=== PATIENT | female | born 1955 | race African-American/Black ===

== ENCOUNTER 2023-09-04 04:32 | Emergency (ER) | payer MEDICARE, MEDICAID, SELFPAY ==
[2023-09-04] VITALS (22 sets, daily range): BP systolic 97–143; BP diastolic 70–124; PULSE 96–109; RESP 12–22; TEMP 36.8; O2SAT 99; BMI 26.0
--- NOTE | 2023-09-04 05:01 | ED_ITS ---
HPI - Nausea/Vomiting/Diarrhea General Chief complaint: Nausea/Vomiting/Diarrhea Stated complaint: CHEST PAIN Time Seen by Provider: 09/04/23 04:48 Source: patient Mode of arrival: ambulance History of Present Illness HPI Narrative: History of renal failure. peritoneal dialysis hs at home. Ill for the past week with recurrent vomiting and diarrhea. States diarrhea was dark/black at first and now has been red. She also has been vomiting for the past week. Tonight she describes recurrent sharp pain at her left breast. Transient pain that would come and go. She did complete her peritoneal dialysis last night. She also describes shooting pain down her arms. states this is related to nerve damage and has been going on for years Related Data Home Medications Medication Instructions Recorded Confirmed cephalexin 500 mg capsule mg 09/04/23 cholecalciferol (vitamin D3) 50 09/04/23 mcg (2,000 unit) capsule (Vitamin D3) docusate sodium 100 mg capsule mg PO 09/04/23 furosemide 80 mg tablet mg 09/04/23 lisinopril 20 mg tablet mg 09/04/23 metoprolol tartrate 50 mg tablet mg 09/04/23 midodrine 5 mg tablet mg 09/04/23 oxycodone-acetaminophen 5 mg-325 tab 09/04/23 mg tablet pantoprazole 40 mg tablet,delayed mg PO 09/04/23 release potassium chloride 10 mEq meq PO 09/04/23 tablet,extended release potassium chloride 20 mEq meq PO 09/04/23 tablet,extended release(part/cryst) sertraline 50 mg tablet mg 09/04/23 sevelamer carbonate 800 mg tablet mg 09/04/23 sodium bicarbonate 650 mg tablet mg 09/04/23 vitamin B complex-vitamin C-folic tab 09/04/23 acid 0.8 mg tablet (Nephro-Gregory) Allergies Allergy/AdvReac Type Severity Reaction Status Date / Time ciprofloxacin [From Cipro] Allergy Verified 09/04/23 04:40 sulfamethoxazole Allergy Verified 09/04/23 04:40 [From Bactrim] trimethoprim [From Bactrim] Allergy Verified 09/04/23 04:40 Review of Systems ROS Status of ROS 10 or more systems reviewed and unremarkable except as noted in history and below [facility] Medical History (Updated 09/04/23 @ 06:54 by Tania Grace) Metabolic syndrome ?E88.810 - Metabolic syndrome (ICD-10) Rectal bleeding ?K62.5 - Hemorrhage of anus and rectum (ICD-10) Social History Smoking status: Current every day smoker Exam Constitutional Vital Signs, click to edit/add: Last Vital Signs Temp 98.2 F 09/04/23 04:34 Pulse 98 H 09/04/23 06:30 Resp 15 09/04/23 06:30 BP 123/87 09/04/23 06:30 Pulse Ox 99 09/04/23 04:34 O2 Del Method Room Air 09/04/23 04:34 Common normals: no apparent distress, average body habitus, oriented x3, no limitations, healthy appearing and alert Eye Common normals: EOMs intact bilaterally and conjunctivae normal Respiratory Common normals: normal respiratory effort, no retractions and no use of accessor y muscles Cardio Common normals: S1 normal heart sound and S2 normal heart sound Rate: tachycardic GI Common normals: Normal to inspection, nondistended, normoactive bowel sounds present, soft to palpation and non-tender Other: rectal sample liquid brown Extremity Common normals: normal to inspection and full ROM Neuro Common normals: oriented x3, CN's II-XII intact bilaterally, moves all extremities and no focal motor deficits Psych Appearance: grossly normal Course Vital Signs Vital signs: Vital Signs Temperature 98.2 F 09/04/23 04:34 Pulse Rate 107 H 09/04/23 04:34 Respiratory Rate 22 09/04/23 04:34 Blood Pressure 104/78 09/04/23 04:34 Pulse Oximetry 99 09/04/23 04:34 Oxygen Delivery Method Room Air 09/04/23 04:34 Temperature 98.2 F 09/04/23 04:34 Pulse Rate 98 H 09/04/23 06:30 Respiratory Rate 15 09/04/23 06:30 Blood Pressure 123/87 09/04/23 06:30 Pulse Oximetry 99 09/04/23 04:34 Oxygen Delivery Method Room Air 09/04/23 04:34 MDM - Nausea/Vomiting/Diarrhea MDM Narrative Medical decision making narrative: peritoneal dialysis patient. States she had a normal colonoscopy this past summer. Complains of recurrent vomiting this past week as well as rectal bleeding. States rectal bleeding was dark brown at first and then turned red blood in color. States she did contact GI at [facility] but they are not able to get her in for an appointment until october. Developed recurrent sharp transient left chest pain last PM and decided to come in. No fever. EKG sinus tach with nonspecific T changes. Troponin neg. Hgb 7.4. last Hgb from records at [facility] 11.2 06/30/23. cxray and abdominal films unremarkable. rectal liquid brown heme positive. [facility] contacted and they do not have beds at this time and are boarding people in the ER. Similarly [facility] does not have bed. [facility] in [place] contacted and Im waiting for call back from the hospitalist service. Did discuss with [facility] at [facility] and patient is accepted in transfer Lab Data Labs: Lab Results 09/04/23 09/04/23 Range/Units 04:45 06:00 WBC 12.8 H (4.0-11.0) 10^3/uL RBC 2.18 L (4.20-5.40) 10^6/uL Hgb 7.4 L (12.0-16.0) g/dL Hct 21.8 L* (36.0-48.0) % MCV 100.0 H (81.0-99.0) fL MCH 33.9 (26.7-34.0) pg MCHC 33.9 (29.9-35.2) g/dL RDW 16.4 H (11.0-15.0) % Plt Count 323 (150-450) 10^3/uL MPV 9.8 (9.5-13.5) fL Neut % (Auto) 68.2 (43.0-75.0) % Lymph % (Auto) 21.8 (20.5-60.0) % Parke % (Auto) 6.3 (1.7-12.0) % Eos % (Auto) 2.7 (0.9-7.0) % Baso % (Auto) 0.5 (0.2-2.0) % Neut # (Auto) 8.7 H (1.4-6.5) 10^3/uL Lymph # (Auto) 2.8 (1.2-3.8) 10^3/uL Parke # (Auto) 0.8 (0.3-0.8) 10^3/uL Eos # (Auto) 0.4 (0.0-0.7) 10^3/uL Baso # (Auto) 0.1 (0.0-0.1) 10^3/uL Abs Immat Gran (auto) 0.06 H (0.00-0.03) 10^3/uL Imm/Tot Granulo (auto) 0.5 (0.0-0.5) % Sodium 139 (136-145) mmol/L Potassium 4.1 (3.5-5.1) mmol/L Chloride 103 (98-107) mmol/L Carbon Dioxide 27.4 (21.0-32.0) mmol/L Anion Gap 12.7 BUN 57.0 H (7.0-18.0) mg/dL Creatinine 9.35 H* (0.55-1.02) mg/dL Est GFR ( Amer) 5 L (>=60) Est GFR (Non-Af Amer) 4 L (>=60) BUN/Creatinine Ratio 6.1 Glucose 85 (74-106) mg/dL Calcium 8.7 (8.5-10.1) mg/dL Total Bilirubin 0.2 (0.2-1.0) mg/dL AST 25 (15-37) U/L ALT 35 (14-59) U/L Alkaline Phosphatase 123 H (46-116) U/L Troponin I High Sens 25.6 (4.0-51.3) pg/mL Total Protein 6.6 (6.4-8.2) g/dL Albumin 2.4 L (3.4-5.0) g/dL Globulin 4.2 g/dL Albumin/Globulin Ratio 0.6 Stool Occult Blood Positive A Discharge Plan Discharge Chief Complaint: Nausea/Vomiting/Diarrhea Clinical Impression: Anemia, Rectal bleeding, Renal failure, chronic, Nausea & vomiting Patient Disposition: [facility] Discharge Location: [facility]
--- NOTE | 2023-09-04 05:03 | PC.NURSE ---
patient was giving herself ordered nightly dialysis treatment when she started to experiencing intermittant nonradiating pains under left breast. states she had numbness in bilateral upper extremities. patient has been having n/v/d multiple times throughout the day for one week. had labs last on 08/30. old fistula not being used in left arm. patient denies any fever or flu like symptoms. states she has feelings similar to this every now and then. chest pain is currently resolved. squad attempted iv inroute with no luck.
--- NOTE | 2023-09-04 05:06 | ECG_ITS ---
The [facility] Test Date: 2023-09-04 Pat Name: TATI RAMIREZ Department: Room: - Gender: Female Traveling Auditor: : 1955 Requested By: PARAG DON Order Number: [id number] Reading MD: HINA BRAXTON Measurements Intervals [place] Rate: 102 P: 35 VA: 134 QRS: 21 QRSD: 92 T: 6 QT: 374 QTc: 432 Interpretive Statements 1120 Sinus tachycardia 4068 Nonspecific Twave abnormality 9140 abnormal rhythm ECG No previous ECG available for comparison Electronically Signed On 09-04-2023 7:08:08 EDT by HINA BRAXTON
--- NOTE | 2023-09-04 05:07 | XR_ITS ---
The [address] [address] Patient Name: TATI RAMIREZ MRN: [id number] date: 1955 Sex: F Assigned Patient Location: ER Current Patient Location: ED.MAIN Accession/Order Number: [id number] Exam Date: 09/04/2023 05:30 Report Date: 09/04/2023 06:31 At the request of: ANKIT LANE Procedure: XR acute abdomen series EXAMINATION: XR acute abdomen series HISTORY: vomiting , nausea, diarrhea for one week COMPARISON: XR chest 08/17/2016 FINDINGS: LUNGS: No infiltrate, pneumothorax, or pleural effusion. MEDIASTINUM: No abnormal widening. BOWEL GAS PATTERN: Air and stool throughout the colon without abnormal dilation or obstruction. Catheter projecting over left lower quadrant of uncertain etiology. FREE AIR: None. CALCIFICATIONS: None significant. BONES: No fracture or visible bone lesion. OTHER: Negative. XR/XR acute abdomen series IMPRESSION: 1. No acute cardiopulmonary process. 2. Normal bowel gas pattern. Electronically authenticated by: CATHERINE FLORES Date: 09/04/2023 06:31
[2023-09-04 05:17] LABS: Basophils Absolute Auto 0.1 10^3/uL (0.0-0.1); Basophils Percent Auto 0.5 % (0.2-2.0); Eosinophils Absolute Auto 0.4 10^3/uL (0.0-0.7); Eosinophils Percent Auto 2.7 % (0.9-7.0); Hemoglobin 7.4 g/dL (12.0-16.0); Immature Granulocytes Abs Auto 0.06 10^3/uL (0.00-0.03); Immature Granulocytes Pct Auto 0.5 % (0.0-0.5); Lymphocytes Absolute Auto 2.8 10^3/uL (1.2-3.8); Lymphocytes Percent Auto 21.8 % (20.5-60.0); Mean Corpuscular HGB Conc 33.9 g/dL (29.9-35.2); Mean Corpuscular Hemoglobin 33.9 pg (26.7-34.0); Mean Platelet Volume 9.8 fL (9.5-13.5); Monocytes Absolute Auto 0.8 10^3/uL (0.3-0.8); Monocytes Percent Auto 6.3 % (1.7-12.0); Neutrophils Absolute Auto 8.7 10^3/uL (1.4-6.5); Neutrophils Percent Auto 68.2 % (43.0-75.0); Platelet Count 323 10^3/uL (150-450); Red Blood Count 2.18 10^6/uL (4.20-5.40); Red Cell Distribution Width 16.4 % (11.0-15.0); White Blood Count 12.8 10^3/uL (4.0-11.0)
[2023-09-04 05:23] LABS: Hematocrit 21.8 % (36.0-48.0)
[2023-09-04] MEDS: ONDANSETRON PF 4 MG/2 ML VIAL IV (05:28)
[2023-09-04] MEDS: 0.9 % SODIUM CHLORIDE 1,000 ML 100 ML IV (05:29)
[2023-09-04 05:40] LABS: Alanine Aminotransferase 35 U/L (14-59); Albumin Globulin Ratio 0.6; Albumin Level 2.4 g/dL (3.4-5.0); Alkaline Phosphatase 123 U/L (46-116); Anion Gap 12.7; Aspartate Amino Transferase 25 U/L (15-37); BUN Creatinine Ratio 6.1; Bilirubin Total 0.2 mg/dL (0.2-1.0); Calcium 8.7 mg/dL (8.5-10.1); Carbon Dioxide 27.4 mmol/L (21.0-32.0); Chloride 103 mmol/L (98-107); Estimated GFR (African America 5 (>=60); Estimated GFR (Non-African Ame 4 (>=60); Globulin 4.2 g/dL; Glucose 85 mg/dL (74-106); Potassium 4.1 mmol/L (3.5-5.1); Sodium 139 mmol/L (136-145); Total Protein 6.6 g/dL (6.4-8.2); Troponin I High Sensitivity 25.6 pg/mL (4.0-51.3)
[2023-09-04 06:16] LABS: Occult Blood Positive
== END 2023-09-04 09:28 | disposition short-term general hospital (02) ==
PROVIDERS: Emergency Provider Internal Medicine; PCP Family Medicine
DX: K62.5 Hemorrhage of anus and rectum (principal); R11.2 Nausea with vomiting, unspecified; D64.9 Anemia, unspecified; N18.6 End stage renal disease; Z99.2 Dependence on renal dialysis; E88.810 Metabolic syndrome; Z79.899 Other long term (current) drug therapy; F17.210 Nicotine dependence, cigarettes, uncomplicated
CPT/HCPCS: 36415; 74022; 80053; 84484; 85025; 93005; 96361; 96374; 99285; G0328

== ENCOUNTER 2023-09-22 13:11 | Emergency (ER) | payer MEDICARE, MEDICAID, SELFPAY ==
[2023-09-22] VITALS (31 sets, daily range): BP systolic 98–127; BP diastolic 62–95; PULSE 62–78; RESP 15–41; TEMP 36.8; O2SAT 99; BMI 23.8
--- NOTE | 2023-09-22 13:36 | XR_ITS ---
The [address] [address] Patient Name: TATI RAMIREZ MRN: [id number] date: 1955 Sex: F Assigned Patient Location: ER Current Patient Location: ER Accession/Order Number: [id number] Exam Date: 09/22/2023 14:42 Report Date: 09/22/2023 15:15 At the request of: RUTH CHUN Procedure: XR chest 1V EXAMINATION: XR chest 1V, , 09/22/2023 2:42 PM EST INDICATION: abdominal pain HISTORY: Ordering Provider Reason for Exam: abdominal pain Technologist Note: Additional: COMPARISON: Chest x-ray dated 08/17/2016. . TECHNIQUE: Chest x-ray: One view. FINDINGS: No pneumothorax, pleural effusion or focal airspace consolidation. Heart is normal in size. Bony thorax is unremarkable. XR/XR chest 1V IMPRESSION: No acute cardiopulmonary process. Electronically authenticated by: MELANIE MEJÍA Date: 09/22/2023 15:15
--- NOTE | 2023-09-22 13:36 | CT_ITS ---
The [address] [address] Patient Name: TATI RAMIREZ MRN: [id number] date: 1955 Sex: F Assigned Patient Location: ER Current Patient Location: ER Accession/Order Number: [id number] Exam Date: 09/22/2023 14:42 Report Date: 09/22/2023 15:21 At the request of: RUTH CHUN Procedure: CT abdomen pelvis wo con CT abdomen pelvis wo con, 09/22/2023 2:42 PM EST INDICATION: Abdominal pain and vomiting COMPARISON: Dictation CT of the abdomen and pelvis 10/29/2008. The images are not currently available for direct comparison. TECHNIQUE: Axial images of the abdomen and pelvis were obtained without IV contrast. Multiplanar reformatted images were generated and reviewed as needed. Dose reduction techniques were achieved by using automated exposure control and/or adjustment of mA and/or kV according to patient size and/or use of iterative reconstruction technique. FINDINGS: No consolidation or effusion. Cholecystectomy. Liver, pancreas, spleen and adrenals are unremarkable on a noncontrast scan. Right renal atrophy. Nonobstructing right renal calculi. Bilateral cortical renal cysts and subcentimeter cortical hypodensities within the left kidney, too small to characterize. No ureteral or urinary bladder calculi. No aortic aneurysm. No bowel obstruction or acute focal inflammation. Heterogeneous debris within the gastric lumen likely ingested by patient. Left lower quadrant percutaneous catheter with tip in the left upper abdomen. Large volume of ascites. No pneumatosis or pneumoperitoneum. Fat-containing supraumbilical hernia with trace fluid in the hernia sac. No mesenteric or retroperitoneal lymphadenopathy. No acute fracture or dislocation. CT/CT abdomen pelvis wo con IMPRESSION: 1. Large volume of ascites. No bowel obstruction, pneumatosis or pneumoperitoneum. 2. Nonobstructing right nephrolithiasis. Electronically authenticated by: SONIA TENA Date: 09/22/2023 15:21
--- NOTE | 2023-09-22 13:36 | ECG_ITS ---
The [facility] Test Date: 2023-09-22 Pat Name: TATI RAMIREZ Department: Room: - Gender: Female Transportation Escort: : 1955 Requested By: [id number] Order Number: [id number] Reading MD: HINA BRAXTON Measurements Intervals [place] Rate: 67 P: 61 AK: 148 QRS: 68 QRSD: 90 T: 64 QT: 432 QTc: 447 Interpretive Statements 1100 Sinus rhythm 9110 normal ECG Compared to ECG 09/04/2023 05:24:36 Sinus tachycardia no longer present Electronically Signed On 09-24-2023 18:19:49 EST by HINA BRAXTON
--- NOTE | 2023-09-22 13:40 | ED.GENADUL1 ---
Documented by User: JOHN Coughlin 09/22/23 17:02 HPI - General Adult General Chief complaint: Abdominal Pain Stated complaint: ABDOMINAL PAIN Time Seen by Provider: 09/22/23 13:31 Source: patient Mode of arrival: walk-in History of Present Illness HPI narrative: patient is a 68-year-old female who presents to the Emergency Room with family for evaluation of nausea vomiting and abdominal pain. Patient was recently seen last week for rectal bleeding noting dark stools and was transferred to [facility] in [place]. Patient does home peritoneal dialysis daily. She reports no difficulties with home dialysis and denies fever. Patient states she has nausea every morning, and at rest does not experience any abdominal pain. Patient states she had scopes last week at [facility] ?2 with clamps applied to areas of different bleeding. She denies any chest pain or shortness of breath. Patient and family concerned as her nausea and vomiting has persisted. Severity: mild (with activity denies pain at rest) Treatments prior to arrival: Reports none Related Data Home Medications Medication Instructions Recorded Confirmed cephalexin 500 mg capsule mg 09/04/23 cholecalciferol (vitamin D3) 50 09/04/23 mcg (2,000 unit) capsule (Vitamin D3) docusate sodium 100 mg capsule mg PO 09/04/23 furosemide 80 mg tablet mg 09/04/23 lisinopril 20 mg tablet mg 09/04/23 metoprolol tartrate 50 mg tablet mg 09/04/23 midodrine 5 mg tablet mg 09/04/23 oxycodone-acetaminophen 5 mg-325 tab 09/04/23 mg tablet pantoprazole 40 mg tablet,delayed mg PO 09/04/23 release potassium chloride 10 mEq meq PO 09/04/23 tablet,extended release potassium chloride 20 mEq meq PO 09/04/23 tablet,extended release(part/cryst) sertraline 50 mg tablet mg 09/04/23 sevelamer carbonate 800 mg tablet mg 09/04/23 sodium bicarbonate 650 mg tablet mg 09/04/23 vitamin B complex-vitamin C-folic tab 09/04/23 acid 0.8 mg tablet (Nephro-Gregory) Previous Rx's Medication Instructions Recorded cephalexin 250 mg capsule 250 mg PO BID 7 days #14 caps 09/22/23 ondansetron HCl 4 mg tablet 4 mg PO Q6H PRN nausea and 09/22/23 vomiting #12 tabs promethazine 25 mg rectal 25 mg DC Q6H PRN nausea and 09/22/23 suppository vomiting #12 ea Allergies Allergy/AdvReac Type Severity Reaction Status Date / Time ciprofloxacin [From Cipro] Allergy Verified 09/04/23 04:40 sulfamethoxazole Allergy Verified 09/04/23 04:40 [From Bactrim] trimethoprim [From Bactrim] Allergy Verified 09/04/23 04:40 Review of Systems ROS Constitutional Denies: fever or chills Eyes Denies: change in vision Ears, nose, mouth, and throat Denies: throat pain Cardiovascular Denies: chest pain Respiratory Denies: shortness of breath or cough Gastrointestinal Reports: abdominal pain, nausea, vomiting and other (dark stools reported last week) Genitourinary Denies: painful urination Musculoskeletal Denies: back pain or neck pain Integumentary/Breast Denies: rash Neurological Denies: headache Psychiatric Denies: anxiety Endocrine Denies: excessive urination Allergic/Immunologic Denies: hives PFSH [facility] Medical History (Updated 09/22/23 @ 16:57 by JOHN Coughlin) Metabolic syndrome ?E88.810 - Metabolic syndrome (ICD-10) Rectal bleeding ?K62.5 - Hemorrhage of anus and rectum (ICD-10) Social History Smoking status: Current every day smoker Exam Narrative Exam Narrative: Nurses notes and vital signs reviewed and patient is not hypoxic. General: The patient appears well and in no apparent distress. Patient is resting comfortably on cart. Skin: Warm, dry, no pallor noted. Head: Normocephalic, atraumatic Neck: Supple, trachea mid-line, no tenderness, no lymphadenopathy Eye: Pupils are equal, round and reactive to light, EOMI Ears, Nose, Mouth, and Throat: TM are clear, normal light reflex, oral mucosa is moist, no posterior oropharynx erythema or hypertrophy, uvula is mid-line Cardiovascular: Regular Rate and Rhythm Respiratory: Patient is in no distress, no accessory muscle use, lungs are clear to auscultation, no wheezing, rales or rhonchi. Chest Wall: no tenderness Back: non-tender, no CVA tenderness Musculoskeletal: normal ROM, no tenderness, no swelling GI: Normal bowel sounds, or lies pain to palpation, catheter insertion site for peritoneal dialysis appears clean with no drainage. no masses appreciated. No rebound, guarding, or rigidity noted. Neurological: A&O x4 Psychiatric: Cooperative Constitutional Vital Signs, click to edit/add: Last Vital Signs Temp 98.3 F 09/22/23 13:17 Pulse 76 09/22/23 18:30 Resp 23 09/22/23 18:30 BP 127/85 09/22/23 18:30 Pulse Ox 99 09/22/23 13:31 O2 Del Method Room Air 09/22/23 14:41 Course Vital Signs Vital signs: Vital Signs Temperature 98.3 F 09/22/23 13:17 Pulse Rate 70 09/22/23 13:17 Respiratory Rate 16 09/22/23 13:17 Blood Pressure 112/68 09/22/23 13:17 Pulse Oximetry 99 09/22/23 13:17 Oxygen Delivery Method Room Air 09/22/23 13:17 Temperature 98.3 F 09/22/23 13:17 Pulse Rate 76 09/22/23 18:30 Respiratory Rate 23 09/22/23 18:30 Blood Pressure 127/85 09/22/23 18:30 Pulse Oximetry 99 09/22/23 13:31 Oxygen Delivery Method Room Air 09/22/23 14:41 Medical Decision Making MDM Narrative Medical decision making narrative: patient presents with persistent abdominal pain and nausea and vomiting, treated last week for gastrointestinal bleed. Patient reports nausea in the a.m. as constant for her for some time, intermittent episodes of vomiting and decreased appetite and family concerned with recent procedures. Patient denies abdominal pain at rest. patient reevaluated, abdomen nonsurgical. We discussed her CT findings, laboratory studies. Discussed requesting lab work from [facility], patient states her hemoglobin is typically in the eights. We discussed her symptoms of morning nausea which she has had for several weeks. Urinalysis with evidence of infection. Cultures pending. Patient agreeable to additional IV fluid bolus and disposition to home after IV antibiotic and oral antibiotics discussed, she'll be supplemented with her home Zofran to have suppository Phenergan. Patient discharged home and may return to the Emergency Room if any symptoms worsen or new symptoms develop. Patient agreeable with disposition plan given recent hospital stay and current symptoms. The patient is to followup with primary care physician in next 2-3 days or to return to the emergency department should any of the signs or symptoms worsen or new symptoms develop. Patient had questions answered. The patient agrees with the following Diagnosis and Treatment plan and the patient will be discharged home. Lab Data Lab results reviewed: Yes I reviewed the patient's lab results Labs: Lab Results 09/22/23 09/22/23 09/22/23 Range/Units 13:54 14:20 14:28 WBC 11.5 H (4.0-11.0) 10^3/uL RBC 2.49 L (4.20-5.40) 10^6/uL Hgb 8.3 L (12.0-16.0) g/dL Hct 25.9 L (36.0-48.0) % MCV 104.0 H (81.0-99.0) fL MCH 33.3 (26.7-34.0) pg MCHC 32.0 (29.9-35.2) g/dL RDW 15.8 H (11.0-15.0) % Plt Count 315 (150-450) 10^3/uL MPV 9.7 (9.5-13.5) fL Neut % (Auto) 71.7 (43.0-75.0) % Lymph % (Auto) 18.2 L (20.5-60.0) % [place] % (Auto) 5.7 (1.7-12.0) % Eos % (Auto) 3.5 (0.9-7.0) % Baso % (Auto) 0.6 (0.2-2.0) % Neut # (Auto) 8.2 H (1.4-6.5) 10^3/uL Lymph # (Auto) 2.1 (1.2-3.8) 10^3/uL [place] # (Auto) 0.7 (0.3-0.8) 10^3/uL Eos # (Auto) 0.4 (0.0-0.7) 10^3/uL Baso # (Auto) 0.1 (0.0-0.1) 10^3/uL Abs Immat Gran (auto) 0.04 H (0.00-0.03) 10^3/uL Imm/Tot Granulo (auto) 0.3 (0.0-0.5) % PT 9.6 (9.0-11.6) sec INR <0.93 APTT 26.1 (22.3-36.2) sec Sodium 136 (136-145) mmol/L Potassium 3.7 (3.5-5.1) mmol/L Chloride 100 (98-107) mmol/L Carbon Dioxide 26.2 (21.0-32.0) mmol/L Anion Gap 13.5 BUN 61.0 H (7.0-18.0) mg/dL Creatinine 13.51 H* (0.55-1.02) mg/dL Est GFR ( Amer) 3 L (>=60) Est GFR (Non-Af Amer) 3 L (>=60) BUN/Creatinine Ratio 4.5 Glucose 131 H (74-106) mg/dL Lactate 2.1 H (0.4-2.0) mmol/L Calcium 8.7 (8.5-10.1) mg/dL Total Bilirubin 0.3 (0.2-1.0) mg/dL AST 19 (15-37) U/L ALT 25 (14-59) U/L Alkaline Phosphatase 150 H (46-116) U/L Troponin I High Sens 14.2 (4.0-51.3) pg/mL Total Protein 6.8 (6.4-8.2) g/dL Albumin 2.2 L (3.4-5.0) g/dL Globulin 4.6 g/dL Albumin/Globulin Ratio 0.5 Lipase 116.0 H (16.0-77.0) U/L Urine Color Lt. yellow (YELLOW) Urine Clarity Slightly cloudy A (CLEAR) Urine pH 6.0 (5.0-9.0) Ur Specific [place] 1.020 (1.005-1.025) Urine Protein 100 A (NEG/TRACE) mg/dL Urine Glucose (UA) Negative (NEGATIVE) mg/dL Urine Ketones Negative (NEGATIVE) mg/dL Urine Occult Blood Trace-i (NEGATIVE) Urine Nitrite Negative (NEGATIVE) Urine Bilirubin Negative (NEGATIVE) Urine Urobilinogen 0.2 (0.2-1.0) EU/dL Ur Leukocyte Esterase Moderate A (NEGATIVE) Urine RBC 0-2 (0-2) #/HPF Urine WBC 5-10 A (NONE SEEN) #/HPF Ur Squamous Epith Cells Few A (NONE/RARE) #/LPF Urine Crystals None seen (None Seen) #/HPF Urine Bacteria Moderate A (NONE SEEN) #/HPF Urine Casts None seen (NONE SEEN) #/LPF Urine Mucus None seen (NONE SEEN) Ur Culture Indicated? Yes Blood Type B Positive Antibody Screen Negative Imaging Data CT scan - abdomen: Radiologist's impression: Procedure: CT abdomen pelvis wo con CT abdomen pelvis wo con, 09/22/2023 2:42 PM EST INDICATION: Abdominal pain and vomiting COMPARISON: Dictation CT of the abdomen and pelvis 10/29/2008. The images are not currently available for direct comparison. TECHNIQUE: Axial images of the abdomen and pelvis were obtained without IV contrast. Multiplanar reformatted images were generated and reviewed as needed. Dose reduction techniques were achieved by using automated exposure control and/or adjustment of mA and/or kV according to patient size and/or use of iterative reconstruction technique. FINDINGS: No consolidation or effusion. Cholecystectomy. Liver, pancreas, spleen and adrenals are unremarkable on a noncontrast scan. Right renal atrophy. Nonobstructing right renal calculi. Bilateral cortical renal cysts and subcentimeter cortical hypodensities within the left kidney, too small to characterize. No ureteral or urinary bladder calculi. No aortic aneurysm. No bowel obstruction or acute focal inflammation. Heterogeneous debris within the gastric lumen likely ingested by patient. Left lower quadrant percutaneous catheter with tip in the left upper abdomen. Large volume of ascites. No pneumatosis or pneumoperitoneum. Fat-containing supraumbilical hernia with trace fluid in the hernia sac. No mesenteric or retroperitoneal lymphadenopathy. No acute fracture or dislocation. CT/CT abdomen pelvis wo con IMPRESSION: 1. Large volume of ascites. No bowel obstruction, pneumatosis or pneumoperitoneum. 2. Nonobstructing right nephrolithiasis. Electronically authenticated by: SONIA TENA Date: 09/22/2023 15:21 Chest x-ray: Attestation: I have reviewed the pertinent imaging results. Radiologist's impression: EXAMINATION: XR chest 1V, , 09/22/2023 2:42 PM EST INDICATION: abdominal pain HISTORY: Ordering Provider Reason for Exam: abdominal pain Technologist Note: Additional: COMPARISON: Chest x-ray dated 08/17/2016. . TECHNIQUE: Chest x-ray: One view. FINDINGS: No pneumothorax, pleural effusion or focal airspace consolidation. Heart is normal in size. Bony thorax is unremarkable. IMPRESSION: No acute cardiopulmonary process. Electronically authenticated by: MELANIE MEJÍA Date: 09/22/2023 15:15 ECG Data Attestation: I personally reviewed and interpreted this ECG as follows: Interpretation: EKG interpretation: Emergency Department physician interpretation, normal sinus rhythm 67, no ectopy, no ST segment elevation, normal axis. Discharge Plan Discharge Chief Complaint: Abdominal Pain Clinical Impression: Nausea & vomiting, Abdominal pain, Urinary tract infection Patient Disposition: Home, Self-Care Time of Disposition Decision: 16:57 Condition: Good Prescriptions / Home Meds: New cephalexin 250 mg capsule 250 mg PO BID 7 Days Qty: 14 0RF ondansetron HCl 4 mg tablet 4 mg PO Q6H PRN (Reason: nausea and vomiting) Qty: 12 0RF promethazine 25 mg suppository 25 mg DC Q6H PRN (Reason: nausea and vomiting) Qty: 12 0RF No Action lisinopril 20 mg tablet midodrine 5 mg tablet potassium chloride 10 mEq tablet extended release PO oxycodone-acetaminophen 5-325 mg tablet potassium chloride 20 mEq tablet,ER particles/crystals PO furosemide 80 mg tablet sodium bicarbonate 650 mg tablet cephalexin 500 mg capsule pantoprazole 40 mg tablet,delayed release (DR/EC) PO metoprolol tartrate 50 mg tablet docusate sodium 100 mg capsule PO Nephro-Gregory 0.8 mg tablet sertraline 50 mg tablet sevelamer carbonate 800 mg tablet cholecalciferol (vitamin D3) [Vitamin D3] 50 mcg (2,000 unit) capsule Instructions: Urinary Incontinence (ED), Acute Nausea and Vomiting (ED), Abdominal Pain (ED) Stand Alone Forms: Portal Instructions Referrals: Wesley Irizarry MD [Primary Care Provider] - As soon as possible Documented by User: Fede Johnson MD 09/22/23 18:51 HPI - General Adult General Chief complaint: Abdominal Pain Stated complaint: ABDOMINAL PAIN Time Seen by Provider: 09/22/23 13:31 Related Data Home Medications Medication Instructions Recorded Confirmed cephalexin 500 mg capsule mg 09/04/23 cholecalciferol (vitamin D3) 50 09/04/23 mcg (2,000 unit) capsule (Vitamin D3) docusate sodium 100 mg capsule mg PO 09/04/23 furosemide 80 mg tablet mg 09/04/23 lisinopril 20 mg tablet mg 09/04/23 metoprolol tartrate 50 mg tablet mg 09/04/23 midodrine 5 mg tablet mg 09/04/23 oxycodone-acetaminophen 5 mg-325 tab 09/04/23 mg tablet pantoprazole 40 mg tablet,delayed mg PO 09/04/23 release potassium chloride 10 mEq meq PO 09/04/23 tablet,extended release potassium chloride 20 mEq meq PO 09/04/23 tablet,extended release(part/cryst) sertraline 50 mg tablet mg 09/04/23 sevelamer carbonate 800 mg tablet mg 09/04/23 sodium bicarbonate 650 mg tablet mg 09/04/23 vitamin B complex-vitamin C-folic tab 09/04/23 acid 0.8 mg tablet (Nephro-Gregory) Previous Rx's Medication Instructions Recorded cephalexin 250 mg capsule 250 mg PO BID 7 days #14 caps 09/22/23 ondansetron HCl 4 mg tablet 4 mg PO Q6H PRN nausea and 09/22/23 vomiting #12 tabs promethazine 25 mg rectal 25 mg DC Q6H PRN nausea and 09/22/23 suppository vomiting #12 ea Allergies Allergy/AdvReac Type Severity Reaction Status Date / Time ciprofloxacin [From Cipro] Allergy Verified 09/04/23 04:40 sulfamethoxazole Allergy Verified 09/04/23 04:40 [From Bactrim] trimethoprim [From Bactrim] Allergy Verified 09/04/23 04:40 [facility] Medical History (Updated 09/22/23 @ 16:57 by JOHN Coughlin) Metabolic syndrome ?E88.810 - Metabolic syndrome (ICD-10) Rectal bleeding ?K62.5 - Hemorrhage of anus and rectum (ICD-10) Social History Smoking status: Current every day smoker Exam Constitutional Vital Signs, click to edit/add: Last Vital Signs Temp 98.3 F 09/22/23 13:17 Pulse 76 09/22/23 18:30 Resp 23 09/22/23 18:30 BP 127/85 09/22/23 18:30 Pulse Ox 99 09/22/23 13:31 O2 Del Method Room Air 09/22/23 14:41 Course Vital Signs Vital signs: Vital Signs Temperature 98.3 F 09/22/23 13:17 Pulse Rate 70 09/22/23 13:17 Respiratory Rate 16 09/22/23 13:17 Blood Pressure 112/68 09/22/23 13:17 Pulse Oximetry 99 09/22/23 13:17 Oxygen Delivery Method Room Air 09/22/23 13:17 Temperature 98.3 F 09/22/23 13:17 Pulse Rate 76 09/22/23 18:30 Respiratory Rate 23 09/22/23 18:30 Blood Pressure 127/85 09/22/23 18:30 Pulse Oximetry 99 09/22/23 13:31 Oxygen Delivery Method Room Air 09/22/23 14:41 Medical Decision Making MDM Narrative Medical decision making narrative: patient presents with persistent abdominal pain and nausea and vomiting, treated last week for gastrointestinal bleed. Patient reports nausea in the a.m. as constant for her for some time, intermittent episodes of vomiting and decreased appetite and family concerned with recent procedures. Patient denies abdominal pain at rest. patient reevaluated, abdomen nonsurgical. We discussed her CT findings, laboratory studies. Discussed requesting lab work from [facility], patient states her hemoglobin is typically in the eights. We discussed her symptoms of morning nausea which she has had for several weeks. Urinalysis with evidence of infection. Cultures pending. Patient agreeable to additional IV fluid bolus and disposition to home after IV antibiotic and oral antibiotics discussed, she'll be supplemented with her home Zofran to have suppository Phenergan. Patient discharged home and may return to the Emergency Room if any symptoms worsen or new symptoms develop. Patient agreeable with disposition plan given recent hospital stay and current symptoms. The patient is to followup with primary care physician in next 2-3 days or to return to the emergency department should any of the signs or symptoms worsen or new symptoms develop. Patient had questions answered. The patient agrees with the following Diagnosis and Treatment plan and the patient will be discharged home. I, Dr Johnson, have reviewed the above progress note and course of action in the ER; agree with the above. I have personally seen and evaluated this patient, gone over history and physical, and discussed disposition and treatment plan with the patient. Critical care time 35 minutes exclusive from separate billable procedures that were performed. The following was considered in the determination of critical care but not limited to the level of medical decision making, intensive cardiac and/or respiratory monitoring, frequent vital sign monitoring, evaluation of laboratory studies, evaluation of radiographic studies, oxygen monitoring, and constant monitoring and speaking to family at bedside Lab Data Labs: Lab Results 09/22/23 09/22/23 09/22/23 Range/Units 13:54 14:20 14:28 WBC 11.5 H (4.0-11.0) 10^3/uL RBC 2.49 L (4.20-5.40) 10^6/uL Hgb 8.3 L (12.0-16.0) g/dL Hct 25.9 L (36.0-48.0) % MCV 104.0 H (81.0-99.0) fL MCH 33.3 (26.7-34.0) pg MCHC 32.0 (29.9-35.2) g/dL RDW 15.8 H (11.0-15.0) % Plt Count 315 (150-450) 10^3/uL MPV 9.7 (9.5-13.5) fL Neut % (Auto) 71.7 (43.0-75.0) % Lymph % (Auto) 18.2 L (20.5-60.0) % [place] % (Auto) 5.7 (1.7-12.0) % Eos % (Auto) 3.5 (0.9-7.0) % Baso % (Auto) 0.6 (0.2-2.0) % Neut # (Auto) 8.2 H (1.4-6.5) 10^3/uL Lymph # (Auto) 2.1 (1.2-3.8) 10^3/uL [place] # (Auto) 0.7 (0.3-0.8) 10^3/uL Eos # (Auto) 0.4 (0.0-0.7) 10^3/uL Baso # (Auto) 0.1 (0.0-0.1) 10^3/uL Abs Immat Gran (auto) 0.04 H (0.00-0.03) 10^3/uL Imm/Tot Granulo (auto) 0.3 (0.0-0.5) % PT 9.6 (9.0-11.6) sec INR <0.93 APTT 26.1 (22.3-36.2) sec Sodium 136 (136-145) mmol/L Potassium 3.7 (3.5-5.1) mmol/L Chloride 100 (98-107) mmol/L Carbon Dioxide 26.2 (21.0-32.0) mmol/L Anion Gap 13.5 BUN 61.0 H (7.0-18.0) mg/dL Creatinine 13.51 H* (0.55-1.02) mg/dL Est GFR ( Amer) 3 L (>=60) Est GFR (Non-Af Amer) 3 L (>=60) BUN/Creatinine Ratio 4.5 Glucose 131 H (74-106) mg/dL Lactate 2.1 H (0.4-2.0) mmol/L Calcium 8.7 (8.5-10.1) mg/dL Total Bilirubin 0.3 (0.2-1.0) mg/dL AST 19 (15-37) U/L ALT 25 (14-59) U/L Alkaline Phosphatase 150 H (46-116) U/L Troponin I High Sens 14.2 (4.0-51.3) pg/mL Total Protein 6.8 (6.4-8.2) g/dL Albumin 2.2 L (3.4-5.0) g/dL Globulin 4.6 g/dL Albumin/Globulin Ratio 0.5 Lipase 116.0 H (16.0-77.0) U/L Urine Color Lt. yellow (YELLOW) Urine Clarity Slightly cloudy A (CLEAR) Urine pH 6.0 (5.0-9.0) Ur Specific [place] 1.020 (1.005-1.025) Urine Protein 100 A (NEG/TRACE) mg/dL Urine Glucose (UA) Negative (NEGATIVE) mg/dL Urine Ketones Negative (NEGATIVE) mg/dL Urine Occult Blood Trace-i (NEGATIVE) Urine Nitrite Negative (NEGATIVE) Urine Bilirubin Negative (NEGATIVE) Urine Urobilinogen 0.2 (0.2-1.0) EU/dL Ur Leukocyte Esterase Moderate A (NEGATIVE) Urine RBC 0-2 (0-2) #/HPF Urine WBC 5-10 A (NONE SEEN) #/HPF Ur Squamous Epith Cells Few A (NONE/RARE) #/LPF Urine Crystals None seen (None Seen) #/HPF Urine Bacteria Moderate A (NONE SEEN) #/HPF Urine Casts None seen (NONE SEEN) #/LPF Urine Mucus None seen (NONE SEEN) Ur Culture Indicated? Yes Blood Type B Positive Antibody Screen Negative Discharge Plan Discharge Chief Complaint: Abdominal Pain Clinical Impression: Nausea & vomiting, Abdominal pain, Urinary tract infection Patient Disposition: Home, Self-Care Time of Disposition Decision: 16:57 Condition: Good Prescriptions / Home Meds: New cephalexin 250 mg capsule 250 mg PO BID 7 Days Qty: 14 0RF ondansetron HCl 4 mg tablet 4 mg PO Q6H PRN (Reason: nausea and vomiting) Qty: 12 0RF promethazine 25 mg suppository 25 mg DC Q6H PRN (Reason: nausea and vomiting) Qty: 12 0RF No Action lisinopril 20 mg tablet midodrine 5 mg tablet potassium chloride 10 mEq tablet extended release PO oxycodone-acetaminophen 5-325 mg tablet potassium chloride 20 mEq tablet,ER particles/crystals PO furosemide 80 mg tablet sodium bicarbonate 650 mg tablet cephalexin 500 mg capsule pantoprazole 40 mg tablet,delayed release (DR/EC) PO metoprolol tartrate 50 mg tablet docusate sodium 100 mg capsule PO Nephro-Gregory 0.8 mg tablet sertraline 50 mg tablet sevelamer carbonate 800 mg tablet cholecalciferol (vitamin D3) [Vitamin D3] 50 mcg (2,000 unit) capsule Instructions: Urinary Incontinence (ED), Acute Nausea and Vomiting (ED), Abdominal Pain (ED) Stand Alone Forms: Portal Instructions Referrals: Wesley Irizarry MD [Primary Care Provider] - As soon as possible
[2023-09-22 14:05] LABS: Hematocrit 25.9 % (36.0-48.0); Hemoglobin 8.3 g/dL (12.0-16.0); Red Blood Count 2.49 10^6/uL (4.20-5.40); White Blood Count 11.5 10^3/uL (4.0-11.0)
[2023-09-22 14:06] LABS: Basophils Absolute Auto 0.1 10^3/uL (0.0-0.1); Basophils Percent Auto 0.6 % (0.2-2.0); Eosinophils Absolute Auto 0.4 10^3/uL (0.0-0.7); Eosinophils Percent Auto 3.5 % (0.9-7.0); Immature Granulocytes Abs Auto 0.04 10^3/uL (0.00-0.03); Immature Granulocytes Pct Auto 0.3 % (0.0-0.5); Lymphocytes Absolute Auto 2.1 10^3/uL (1.2-3.8); Lymphocytes Percent Auto 18.2 % (20.5-60.0); Mean Corpuscular Hemoglobin 33.3 pg (26.7-34.0); Mean Platelet Volume 9.7 fL (9.5-13.5); Monocytes Absolute Auto 0.7 10^3/uL (0.3-0.8); Monocytes Percent Auto 5.7 % (1.7-12.0); Neutrophils Absolute Auto 8.2 10^3/uL (1.4-6.5); Neutrophils Percent Auto 71.7 % (43.0-75.0); Platelet Count 315 10^3/uL (150-450); Red Cell Distribution Width 15.8 % (11.0-15.0)
[2023-09-22 14:27] LABS: Partial Thromboplastin Time 26.1 sec (22.3-36.2); Prothrombin Time 9.6 sec (9.0-11.6)
[2023-09-22] MEDS: PANTOPRAZOLE SODIUM 40 MG VIAL IV (14:31)
[2023-09-22] MEDS: ONDANSETRON PF 4 MG/2 ML VIAL IV (14:31)
[2023-09-22] MEDS: 0.9 % SODIUM CHLORIDE 1,000 ML 100 ML IV (14:31)
[2023-09-22 14:43] LABS: Alanine Aminotransferase 25 U/L (14-59); Albumin Globulin Ratio 0.5; Albumin Level 2.2 g/dL (3.4-5.0); Alkaline Phosphatase 150 U/L (46-116); Anion Gap 13.5; Aspartate Amino Transferase 19 U/L (15-37); BUN Creatinine Ratio 4.5; Bilirubin Total 0.3 mg/dL (0.2-1.0); Calcium 8.7 mg/dL (8.5-10.1); Carbon Dioxide 26.2 mmol/L (21.0-32.0); Chloride 100 mmol/L (98-107); Estimated GFR (African America 3 (>=60); Estimated GFR (Non-African Ame 3 (>=60); Globulin 4.6 g/dL; Glucose 131 mg/dL (74-106); Potassium 3.7 mmol/L (3.5-5.1); Sodium 136 mmol/L (136-145); Total Protein 6.8 g/dL (6.4-8.2); Troponin I High Sensitivity 14.2 pg/mL (4.0-51.3)
[2023-09-22 14:45] LABS: Bilirubin Urine NEGATIVE (NEGATIVE); Blood Urine TRACE-I (NEGATIVE); Color Urine LT. YELLOW (YELLOW); Glucose Urine UA NEGATIVE (NEGATIVE); Ketones Urine NEGATIVE (NEGATIVE); Leukocyte Esterase Urine MODERATE (NEGATIVE); Nitrite Urine NEGATIVE (NEGATIVE); Protein Urine 100 mg/dL (NEG/TRACE); Urobilinogen Urine 0.2 EU/dL (0.2-1.0)
[2023-09-22 14:47] LABS: Lactate/Lactic Acid 2.1 mmol/L (0.4-2.0)
[2023-09-22 14:51] LABS: Clarity Urine SLIGHTLY CLOUDY (CLEAR); Urine Microscopic Indicated YES
[2023-09-22 14:51] LABS: INR <0.93
[2023-09-22 14:52] LABS: Bacteria Urine MODERATE #/HPF (NONE SEEN); Cast Seen? NONE SEEN #/LPF (NONE SEEN); Crystals Seen? None Seen #/HPF (None Seen); Mucus Urine NONE SEEN (NONE SEEN); RBC Urine 0-2 #/HPF (0-2); Squamous Epithelial Cell Urine FEW #/LPF (NONE/RARE); Urine Culture Indicated YES
[2023-09-22] MEDS: CEFTRIAXONE 500 MG in 0.9 % SODIUM CHLORIDE 50 ML 100 MG IV (17:11)
[2023-09-22] MEDS: 0.9 % SODIUM CHLORIDE 1,000 ML 999 ML IV (17:11)
== END 2023-09-22 18:53 | disposition home or self-care (01) ==
PROVIDERS: Personal Emergency Response Attendant; Emergency Provider Emergency Medicine; PCP Family Medicine
DX: N39.0 Urinary tract infection, site not specified (principal); R10.9 Unspecified abdominal pain; R11.2 Nausea with vomiting, unspecified; Z79.899 Other long term (current) drug therapy; Z99.2 Dependence on renal dialysis; E88.810 Metabolic syndrome; F17.210 Nicotine dependence, cigarettes, uncomplicated
CPT/HCPCS: 36415; 71045; 74176; 80053; 81001; 83605; 83690; 84484; 85025; 85610; 85730; 86850; 86900; 86901; 87040; 87086; 87150; 87186; 93005; 96361; 96365; 96375; 99285

== ENCOUNTER 2024-04-20 15:27 | Emergency (ER) | payer MEDICARE, MEDICAID, SELFPAY ==
[2024-04-20] VITALS (17 sets, daily range): BP systolic 99–114; BP diastolic 71–80; PULSE 70–94; TEMP 36.9; O2SAT 95–100; BMI 24.0
--- NOTE | 2024-04-20 15:35 | XR_ITS ---
The [address] [address] Patient Name: TATI RAMIREZ MRN: [id number] date: 1955 Sex: F Assigned Patient Location: ER Current Patient Location: ER Accession/Order Number: [id number] Exam Date: 04/20/2024 16:23 Report Date: 04/20/2024 17:47 At the request of: TRUDY ROGERS Procedure: XR femur RT 2V IMAGES REVIEWED: XR femur RT 2V COMPARISON: None available. CLINICAL INDICATION: Fall FINDINGS/IMPRESSION: No radiographic evidence of acute osseous abnormality of the right femur. Osteopenia. Mild degenerative change right hip and right knee. Peripheral arterial disease. Electronically authenticated by: VIVI NJ Date: 04/20/2024 17:47
--- NOTE | 2024-04-20 15:35 | ECG_ITS ---
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
--- NOTE | 2024-04-20 15:35 | XR_ITS ---
The [address] [address] Patient Name: TATI RAMIREZ MRN: [id number] date: 1955 Sex: F Assigned Patient Location: ER Current Patient Location: ER Accession/Order Number: [id number] Exam Date: 04/20/2024 16:23 Report Date: 04/20/2024 17:46 At the request of: TRUDY ROGERS Procedure: XR humerus RT IMAGES REVIEWED: XR humerus RT COMPARISON: None available. CLINICAL INDICATION: fall FINDINGS/IMPRESSION: No evidence of acute osseous abnormality of the right humerus. Electronically authenticated by: VIVI NJ Date: 04/20/2024 17:46
--- NOTE | 2024-04-20 15:35 | XR_ITS ---
[address] [address] Patient Name: TATI RAMIREZ MRN: [id number] date: 1955 Sex: F Assigned Patient Location: ER Current Patient Location: ED.MAIN Accession/Order Number: [id number] Exam Date: 04/20/2024 16:23 Report Date: 04/20/2024 18:24 At the request of: TRUDY ROGERS Procedure: XR chest 1V EXAMINATION: XR chest 1V REASON FOR EXAM: Dizziness COMPARISON: 09/22/2023. TECHNIQUE: Single projection. FINDINGS: Cardiomediastinal shadows are normal. Lung volumes are shallow but symmetric. No pneumothorax or edema. No focal infiltrate or pleural effusion. Visualized bony thorax intact. Prior disc arthroplasties in the lower cervical spine. XR/XR chest 1V IMPRESSION: No acute or focal cardiopulmonary findings. Electronically authenticated by: MIESHA DOVE Date: 04/20/2024 18:24
--- NOTE | 2024-04-20 15:35 | CT_ITS ---
The [address] [address] Patient Name: TATI RAMIREZ MRN: [id number] date: 1955 Sex: F Assigned Patient Location: ER Current Patient Location: ER Accession/Order Number: [id number] Exam Date: 04/20/2024 16:23 Report Date: 04/20/2024 17:52 At the request of: TRUDY ROGERS Procedure: CT pelvis wo con EXAM: CT pelvis wo con COMPARISON: 09/22/2023. CLINICAL INDICATION: fall, tailbone pain TECHNIQUE: Multiplanar CT images of the pelvis without contrast. Dose reduction techniques were achieved by using automated exposure control and/or adjustment of mA and/or kV according to patient size and/or use of iterative reconstruction technique. FINDINGS: No CT evidence of acute osseous abnormality of the pelvis or sacrum/coccyx. Osteopenia. Mild-moderate osteoarthritis of bilateral hips. Transitional lumbosacral anatomy on the left. No acute intrapelvic abnormality. Left lower quadrant shunt catheter partially visualized with prominent lower abdominal and pelvic ascites. Severe atherosclerosis. Prior hysterectomy. No hip soft tissue hematoma. IMPRESSION: No CT evidence of acute osseous abnormality. Electronically authenticated by: VIVI NJ Date: 04/20/2024 17:52
--- NOTE | 2024-04-20 15:35 | CT_ITS ---
The [address] [address] Patient Name: TATI RAMIREZ MRN: [id number] date: 1955 Sex: F Assigned Patient Location: ER Current Patient Location: ER Accession/Order Number: [id number] Exam Date: 04/20/2024 16:23 Report Date: 04/20/2024 17:44 At the request of: TRUDY ROGERS Procedure: CT cervical spine wo con EXAM: CT cervical spine wo con COMPARISON: None available. CLINICAL INDICATION: Neck pain, fall TECHNIQUE: Multiplanar CT images of the cervical spine without contrast. Dose reduction techniques were achieved by using automated exposure control and/or adjustment of mA and/or kV according to patient size and/or use of iterative reconstruction technique. FINDINGS: Status post prior C5-C7 fusion with interbody disc spacers. No CT evidence of acute osseous abnormality. Osteopenia. No prevertebral soft tissue swelling. Trace degenerative anterolisthesis of C4 on C5 due to severe right-sided facet arthropathy. Mild-moderate degenerative disc disease C2-5. Spinal canal appears moderately-severely narrowed from C2 through C5 due to a congenitally narrow spinal canal and posterior disc osteophyte complexes. No acute findings in the visualized upper chest. CT/CT cervical spine wo con IMPRESSION: 1. No evidence of acute osseous abnormality of the cervical spine. 2. Moderate-severe spinal canal stenosis at C2-C5 due to a congenitally narrow spinal canal and posterior disc osteophyte complexes. Electronically authenticated by: VIVI NJ Date: 04/20/2024 17:44
--- NOTE | 2024-04-20 15:35 | CT_ITS ---
The [address] [address] Patient Name: TATI RAMIREZ MRN: [id number] date: 1955 Sex: F Assigned Patient Location: ED.MAIN Current Patient Location: ER Accession/Order Number: [id number] Exam Date: 04/20/2024 16:23 Report Date: 04/20/2024 17:25 At the request of: TRUDY ROGERS Procedure: CT head/brain wo con EXAM: CT head/brain wo con HISTORY: Dizziness, fall COMPARISON: None. TECHNIQUE: Unenhanced transaxial tomographic sections obtained from the vertex through the posterior fossa. FINDINGS: No midline shift, mass effect or intracranial hemorrhage. No evidence of calvarial fracture. The mastoid air cells and visualized paranasal sinuses are clear. CT/CT head/brain wo con IMPRESSION: Unremarkable unenhanced head CT. Electronically authenticated by: ALEX WILLSON Date: 04/20/2024 17:25
--- OUTSIDE RECORDS SUMMARY | 2024-04-20 15:35 | XMS_ITS | CCD ---
Author Organization [facility] Care Team Providers Care [employer] As[employer]er Name Role Phone STEVE, DR SENIOR Attending Unavailable STEVE, DR SENIOR Admitting Unavailable JOSE, DR CARLENE Nguyen Consulting Unavailable AVAEREEvert, DR WESLEY Shah Primary Care Unavailable STEVE, DR SENIOR Consulting Unavailable NADEREEvert, DR WESLEY Shah Consulting Unavailable JOANNA HELM Admitting Unavailable VOLODYMYR, JOANNA Attending Unavailable Carlene Sahu Consulting Unavailable JOANNA HELM Consulting Unavailable MD Wesley Don Primary Care Provider MD Humza Shearer Attending Provider Wesley Don Primary Care Unavailable Humza Shearer Admitting Unavailable Humza Shearer Attending Unavailable Humza Shearer Attending Unavailable Humza Shearer Admitting Unavailable Wesley Don Primary Care Unavailable Humza Shearer Attending Unavailable Humza Shearer Admitting Unavailable Wesley Don Primary Care Unavailable Humza Shearer Unavailable Wesley Don MD Primary Care Provider WESLEY DON Primary Care Unavailabl e AZCEFERINO DE LA TORRECARROLL Referring Unavailable CEFERINO MOONHAMMAD Attending Unavailable Wesley Don Primary Care Provider [phone] Carly HAHN, Liz Sánchez Unavailable CEFERINO MOONHAMMAD Attending Unavailable AZBRITT, CARROLL Referring Unavailable WESLEY DON Primary Care Unavailabl e AVAEREWESLEY Loyd Primary Care Unavailabl e AZBRITT, CARROLL Attending Unavailable AZBRITT, CARROLL Referring Unavailable WESLEY DON Primary Care Unavailabl e AZIZ, CARROLL Attending Unavailable AZIZ, CARROLL Admitting Unavailable NADERER, WESLEY RASHI Primary Care Unavailabl e NADERER, WESLEY RASHI Primary Care Unavailabl e AZIZ, CARROLL Attending Unavailable AZIZ, CARROLL Referring Unavailable NADERER, WESLEY RASHI Primary Care Unavailabl e NADERER, WESLEY Referring Unavailable NADERER, WESLEY Primary Care Unavailable LOUKA, BARBARA Attending Unavailable HUSEINI, AGUILAR Consulting Unavailable NADERER, WESLEY RASHI Primary Care Unavailabl e SANDRINE, HARMANDEEP ANAND Admitting Unavailable ARIANA, ANKIT T Referring Unavailable ROSA, MARIO M Consulting Unavailable ALEJANDRO, JEWEL A Consulting Unavailable JAGARLAMUDI, WILL VANCE Admitting Unavailable NADERER, WESLEY RASHI Primary Care Unavailabl e AVASTHI, EDGARDO Attending Unavailable JAGARLAMUDI, WILL VANCE Consulting Unavailable RO, BALHINDER S Consulting Unavailable HUSEINI, AGUILAR Consulting Unavailable JOHAR, LONI S Consulting Unavailable NADERER, WESLEY FED[address] WAY Primary Care Unavailabl e WAQAR, RATIKA Attending Unavailable TERESA TRIPP Referring Unavailable LOUKA, BARBARA Admitting Unavailable AOUAD, MARVIN T Consulting Unavailable NADERER, WESLEY Primary Care Unavailable NADERER, WESLEY Primary Care Unavailable TERESA TRIPP Attending Unavailable TEMITOPE, MUHAMID M Admitting Unavailable TERESA TRIPP Attending Unavailable TERESA TRIPP Referring Unavailable NADEREEvert, WESLEY Primary Care Unavailable NADERER, WESLEY Attending Unavailable NADERER, WESLEY Attending Unavailable Allergies Allergy Classification Reported Allergen(s) Allergy Type Date of Onset Reaction(s) Facility Quinolones (antibiotic) (1 source) Ciprofloxacin Drug Allergy 07-27-20 16 [facility] Repository Sulfamethoxazole / Trimethoprim (1 source) Sulfamethoxazole / Trimethoprim Drug Allergy 07-20-20 16 [facility] Repository (11 sources) Ciprofloxacin; Translations: [ciprofloxacin] Drug Allergy 10-12-20 10 Shortness Of Breath, Other: See [facility] (6 sources) Sulfamethoxazole; Translations: [sulfamethoxazole] Drug Allergy 10-12-20 10 Other: See [facility] (3 sources) Trimethoprim; Translations: [trimethoprim] Drug Allergy 08-25-20 20 [facility] (3 sources) Sulfamethoxazole / Trimethoprim Drug Allergy 02-03-20 17 rash, BLISTER IN MOUTH [facility] (3 sources) QUEtiapine Drug Allergy 10-12-20 10 Other: See Comments [facility] (2 sources) Sulfamethoxazole / Trimethoprim; Translations: [SULFAMETHOXAZOLE-TR IMETHOPRIM] Drug Allergy 03-24-20 17 [facility] Repository Medications Current Medications Medication Drug Class(es) Dates Sig (Normalized) Sig (Original) amLODIPine 10 mg oral tablet (6 sources) Dihydropyridine Calcium Channel Ann Start: 06-09-2020 take 10 mg by mouth once daily Amlodipine Active 10 MG PO Daily June 08, 2020 11:00pm Comment on above: Take one(1) tablet d aily. aspirin 81 mg delayed release oral tablet (5 sources) Platelet Aggregation Inhibitor, Nonsteroidal Anti-inflammatory Drug Start: 07-09-2020 take 81 mg by mouth once daily Aspirin Active 81 MG PO Daily July 08, 2020 11:00pm take 1 tablet by uziel th every twenty-four hours Aspirin 81 MG 1 tablet Orally Once a day for 30 day(s) Active B Lekqkuv-Y-Iprrb Acid (RENAL VITAMIN PO) (2 sources) take 1 tablet by mouth once daily B Vvykuhj-T-Zlimy Acid (RENAL VITAMIN PO) Take 1 tablet by mouth daily 0 Active B Complex-Vitamin C-Folic Acid (Amaya-Gregory) 0.8 mg Tablet (2 sources) Start: 06-09-20 take 1 tablet by mouth once daily B Complex-Vitamin C-Folic Acid (Amaya-Gregory) 0.8 mg Tablet Active 0.8 MG PO Daily June 08, 2020 11:00pm bacillus coagulans [id number] unt / inulin 250 mg oral capsule (2 sources) Bacillus Coagulans-Inulin (PROBIOTIC) 1-250 BILLION-MG CAPS Take by mouth 0 Active baclofen 20 mg oral tablet (1 source) gamma-Aminobutyr ic Acid-ergic Agonist take 1 tablet by mouth every eight hours Baclofen 20 MG 1 tablet with food or milk Orally Three times a day for 30 day(s) Active calcitriol 0.45544 mg oral capsule (4 sources) Vitamin D3 Analog Start: 06-09-20 take 0.25 ug by mouth once Calcitriol Active 0.25 MCG PO every Monday, Monday, and Monday June 08, 2020 11:00pm take 1 capsule by mouth every ot her day calcitRIOL (ROCALTROL) 0.5 MCG capsule Take 1 capsule by mouth every other day ay, Monday, 0 Active cholecalciferol 0.125 mg oral capsule (2 sources) Vitamin D Cholecalciferol (VITAMIN D3) 5000 UNITS CAPS Take 2,000 Units by mouth daily 0 Active docusate sodium 100 mg oral capsule (2 sources) Start: 0 take 1 capsule by mouth twice daily Docusate Sodium (Colace) 100 mg Capsule Active 100 MG PO Twice daily June 08, 2020 11:00pm furosemide 80 mg oral tablet (5 sources) Loop Diuretic Start: 3 take 1 tablet by mouth twice daily furosemide (LASIX) 80 MG tablet Take 1 tablet by mouth 2 times daily 60 tablet 3 09/10/2023 Active Start: 06-09-2020 take 40 mg by mouth twice soha y Furosemide Active 40 MG PO Twice daily June 08, 2020 11:00pm take 1 tablet by uziel th every twenty-four hours Lasix 40 MG 1 tablet Orally Once a day for 30 day(s) Active Lactobacillus (2 sources) take 1 tablet by mouth once daily LACTOBACILLUS PO Take 1 tablet by mouth daily 0 Active lanthanum carbonate 500 mg chewable tablet (2 sources) Start: 10-24-20 23 take 1 tablet by mouth three times daily at mealtime lanthanum (FOSRENOL) 500 MG chewable tablet Take 1 tablet by mouth 3 times daily (with meals) 90 tablet 3 10/24/2023 Active 10 ml lidocaine hydrochloride 10 mg/ml injection (1 source) Antiarrhythmic, Amide Local Anesthetic Start: 03-11-20 24 End: 03-12-20 24 lidocaine PF 1 % injection 1 mL lisinopril 20 mg oral tablet (8 sources) Angiotensin Converting Enzyme Inhibitor Start: 10-25-20 23 take 1 tablet by mouth once daily lisinopril (PRINIVIL;ZESTRIL) 20 MG tablet Take 1 tablet by mouth daily 30 tablet 3 10/25/2023 Active Start: 06-09-2020 take 20 mg by mouth once daily at bedtime Lisinopril Active 20 MG PO Daily at bedtime June 08, 2020 11:00pm take 1 tablet by uziel th once daily lisinopril 40 mg ORAL tablet Indications: Chronic hepatitis C without mention of hepatic coma Take one(1) tablet daily. 0 Active Comment on above: Take one(1) tablet d aily. methylcellulose 2000 mg powder for oral suspension (1 source) Start: 03-11-20 End: 06-09-20 24 take 2 g by mouth once daily at bedtime methylcellulose (CITRUCEL) oral powder Take 2 g by mouth in the morning and at bedtime Take by mouth daily. 454 g 0 03/11/2024 06/09/2024 Active metoprolol tartrate 100 mg oral tablet (5 sources) beta-Adrenergic Ann Start: 06-09-20 take 100 mg by mouth twice daily Metoprolol Tartrate Active 100 MG PO Twice daily June 08, 2020 11:00pm take 0.5 tablet by mouth twice d aily metoprolol (LOPRESSOR) 100 MG tablet Take 0.5 tablets by mouth 2 times daily 0 Active Multiple Vitamins-Minerals (THERAPEUTIC MULTIVITAMIN-MINERALS) tablet (2 sources) take 1 tablet by mouth once daily Multiple Vitamins-Minerals (THERAPEUTIC MULTIVITAMIN-MINERALS) tablet Take 1 tablet by mouth daily 0 Active omeprazole 40 mg delayed release oral capsule (1 source) Proton Pump Inhibitor take 1 capsule by mouth every twenty-four hours Omeprazole 40 MG 1 capsule Orally Once a day for 30 day(s) Active ondansetron 4 mg disintegrating oral tablet (2 sources) Serotonin-3 Receptor Antagonist Star t: 12-14 24 take 1 tablet by mouth three times daily as needed for nausea ondansetron (ZOFRAN-ODT) 4 MG disintegrating tablet Take 1 tablet by mouth 3 times daily as needed for Nausea or Vomiting 21 tablet 0 12/28/2023 Active oxyCODONE hydrochloride 5 mg oral tablet (2 sources) Opioid Agonist Star t: 08-13 20 take 5 mg by mouth every four to six hours Oxycodone Active 5 MG PO EVERY 4-6 HOURS 70 August 26, 2020 pantoprazole 40 mg delayed release oral tablet (4 sources) Proton Pump Inhibitor Star t: 08-14 23 take 1 tablet by mouth once daily before breakfast pantoprazole (PROTONIX) 40 MG tablet Take 1 tablet by mouth every morning (before breakfast) 60 tablet 0 09/07/2023 Active Start: 07-09-2020 take 40 mg by mouth once daily Pantoprazole Active 40 MG PO Daily July 08, 2020 11:00pm polyethylene glycol 3350 17907 mg powder for oral solution (2 sources) Osmotic Laxative take 1 dose by mouth once daily as needed for constipation polyethylene glycol (GLYCOLAX) 17 g packet Take 1 packet by mouth daily as needed for Constipation 0 Active risperiDONE 1 mg oral tablet (1 source) Atypical Antipsychotic take 1 tablet by mouth every twenty-four hours RisperDAL 1 MG 1 tablet Orally Once a day for 30 day(s) Active sertraline 50 mg oral tablet (5 sources) Serotonin Reuptake Inhibitor Start: take 50 mg by mouth once daily at bedtime Sertraline Active 50 MG PO Daily at bedtime June 08, 2020 11:00pm Zoloft Active sodium bicarbonate 650 mg oral tablet (4 sources) Start: 09-07-2023 take 1 tablet by mouth once daily sodium bicarbonate 650 MG tablet Take 1 tablet by mouth daily 0 09/07/2023 Active Start: 06-09-2020 take 650 mg by mouth once soha y Sodium Bicarbonate Active 650 MG PO Daily June 08, 2020 11:00pm 5 ml sodium chloride 9 mg/ml injection (4 sources) Start: 03-11-2024 sodium chlorid e flush 0.9 % injection 5-40 mL Start: 03-11-2024 0.9 % sodium c hloride infusion Start: 03-11-2024 sodium chlorid e flush 0.9 % injection 5-40 mL spironolactone 25 mg oral tablet (2 sources) Aldosterone Antagonist take 1 tablet by mouth once daily spironolactone (ALDACTONE) 25 MG tablet Take 1 tablet by mouth daily 0 Active traMADol hydrochloride 50 mg oral tablet (1 source) Opioid Agonist take 1-2 tablets by mouth every four hours as needed for pain Ultram 50 MG 1-2 tablets as needed for pain Orally every 4 hrs Active Completed/Discontinued Medications Medication Drug Class(es) Dates Sig (Normalized) Sig (Original) acetaminophen 325 mg / oxyCODONE hydrochloride 5 mg oral tablet (4 sources) Opioid Agonist Start: 06-09-20 End: 10-27-20 take 1 tablet by mouth every four hours Oxycodone-Acetaminophe n Discontinued 1 TAB PO Q4H June 08, 2020 11:00pm Reed 15th, 2022 6:36am citalopram 20 mg oral tablet (3 sources) Serotonin Reuptake Inhibitor take 1 tablet by mouth once daily citalopram 20 mg ORAL tablet Indications: Chronic hepatitis C without mention of hepatic coma Take one(1) tablet daily. 0 Active Comment on above: Take one(1) tablet d aily. clonazePAM 0.5 mg oral tablet (3 sources) Benzodiazepine Start: 08-29-20 11 take 1 tablet by mouth twice daily clonazePAM (KLONOPIN) 0.5 mg ORAL tablet Take 1 tablet by mouth twice daily. 0 08/29/2011 Active Comment on above: Take 1 tablet by uziel twice daily. cyclobenzaprine hydrochloride 10 mg oral tablet (3 sources) Muscle Relaxant Start: 08-29-20 11 take 1 tablet by mouth once daily cyclobenzaprine 10 mg ORAL tablet Take 1 tablet by mouth once daily. 0 08/29/2011 Active Comment on above: Take 1 tablet by uziel once daily. diazePAM 5 mg oral tablet (2 sources) Benzodiazepine Start: 08-26-20 End: 10-27-20 take 5 mg by mouth four times daily Diazepam Discontinued 5 MG PO Four times daily August 25, 2020 11:00pm October 27, 2022 6:35am hydroCHLOROthiazide 25 mg oral tablet (4 sources) Thiazide Diuretic Start: 08-29-20 11 take 1 tablet by mouth once daily hydrochlorothiazide 25 mg ORAL tablet Indications: Chronic hepatitis C without mention of hepatic coma Take 1 tablet by mouth once daily. 0 08/29/2011 Active Comment on above: Take 1 tablet by uziel once daily. hydrOXYzine pamoate 25 mg oral capsule (3 sources) Antihistamine Start: 08-29-20 11 take 1 capsule by mouth once daily hydrOXYzine pamoate 25 mg ORAL capsule Indications: Chronic hepatitis C without mention of hepatic coma Take 1 capsule by mouth once daily. 0 08/29/2011 Active Comment on above: Take 1 capsule by mo [facility] once daily. magnesium oxide 400 mg oral tablet (2 sources) Start: 08-17-20 End: 10-27-20 take 400 mg by mouth once daily Magnesium Oxide Discontinued 400 MG PO Daily August 16, 2020 11:00pm October 27, 2022 6:29am microencapsulated potassium chloride 20 meq extended release oral tablet (6 sources) Start: 08-29-20 11 take 1 tablet by mouth once daily potassium chloride SR (K-DUR) 20 mEq ORAL tablet Take 1 tablet by mouth once daily. 0 08/29/2011 Active take 1 capsule by mouth once suzy ly Potassium Chloride 20 MEQ 1 capsule Orally Once a day for 30 day(s) Active Comment on above: Take 1 tablet by uziel th once daily. Problems Active Problems Problem Classification Problem Date Documented Date Episodic/Chronic Abdominal pain (2 sources) Unspecified abdominal pain; Translations: [Abdominal pain] Onset: 2 Episodic Chronic kidney disease (10 sources) Anemia of renal disease; Translations: [Chronic kidney disease, unspecified] Onset: 3 08-26-2020 Chronic Deficiency and other anemia (2 sources) Iron deficiency anemia due to blood loss; Translations: [Iron deficiency anemia secondary to blood loss (chronic)] Onset: 3 10-24-2023 Chronic Esophageal disorders (3 sources) Gastroesophageal reflux disease without esophagitis; Translations: [Gastro-esophageal reflux disease without esophagitis] Onset: 3 10-24-2023 Chronic Essential hypertension (4 sources) Essential (primary) hypertension; Translations: [Essential hypertension] Onset: 1 10-24-2023 Chronic Hepatitis (2 sources) Chronic hepatitis C; Translations: [Chronic viral hepatitis C] Onset: 4 01-19-2024 Chronic Hypertension with complications and secondary hypertension (2 sources) Benign hypertension; Translations: [Hypertensive chronic kidney disease with stage 5 chronic kidney disease or end stage renal disease] 08-26-2020 Chronic Miscellaneous mental health disorders (3 sources) Non-organic disorder of the sleep-wake schedule; Translations: [Other dysfunctions of sleep stages or arousal from sleep] Onset: 1 08-29-2011 Chronic Nausea and vomiting (1 source) Nausea; Translations: [Nausea] Episodic Noninfectious gastroenteritis (3 sources) Noninfective gastroenteritis and colitis, unspecified; Translations: [Chronic diarrhea] Onset: 4 03-11-2024 Episodic Other aftercare (1 source) retirement (current) use of aspirin; Translations: [ALF CURRENT USE OF ASPIRIN] Onset: 1 Episodic Other aftercare (1 source) Other alf (current) drug therapy; Translations: [OTH ALF CURRENT DRUG THERAPY] Onset: 1 Episodic Other connective tissue disease (1 source) Fibromyalgia; Translations: [Fibromyalgia] Episodic Other diseases of kidney and ureters (2 sources) Secondary hyperparathyroidism; Translations: [Secondary hyperparathyroidism of renal origin] 08-26-2020 Chronic Other gastrointestinal disorders (1 source) Diarrhea; Translations: [Diarrhea, unspecified] Episodic Other lower respiratory disease (1 source) Shortness of breath; Translations: [Shortness of breath] Onset: 4 Episodic Other nervous system disorders (2 sources) Cervical myelopathy; Translations: [Disease of spinal cord, unspecified] 08-26-2020 Chronic Other nutritional; endocrine; and metabolic disorders (3 sources) Metabolic syndrome X; Translations: [Dysmetabolic syndrome X] Onset: 1 08-29-2011 Chronic Other nutritional; endocrine; and metabolic disorders (1 source) Weight loss; Translations: [Abnormal weight loss] Episodic Peritonitis and intestinal abscess (3 sources) Peritonitis, unspecified; Translations: [Peritonitis, unspecified] Onset: 4 Episodic Residual codes; unclassified (3 sources) Idiopathic hypersomnia without long sleep time; Translations: [Idiopathic hypersomnia without long sleep time] Onset: 1 08-29-2011 Chronic Skin and subcutaneous tissue infections (1 source) Cellulitis of abdominal wall; Translations: [Cellulitis of abdominal wall] Onset: 4 Episodic Spondylosis; intervertebral disc disorders; other back problems (2 sources) Intervertebral disc disorder of cervical region with myelopathy; Translations: [Cervical disc disorder with myelopathy, unspecified cervical region] Chronic Spondylosis; intervertebral disc disorders; other back problems (8 sources) Cervicalgia; Translations: [Radiculopathy, cervical region] Onset: 0 Episodic Sprains and strains (1 source) Strain of muscle, fascia and tendon at neck level, initial encounter; Translations: [STRN MUSC FASC TENDON NECK LEVL INT] Onset: 1 Episodic Substance-related disorders (1 source) Smoker; Translations: [Nicotine dependence, unspecified, uncomplicated] Chronic Unclassified (1 source) Encounter for preprocedural laboratory examination; Translations: [Encounter for preprocedural laboratory examination] Onset: 2 Unclassified (2 sources) Wound Check Onset: 4 Past or Other Problems Problem Classification Problem Date Documented Da te Episodic/Chronic Acute posthemorrhagic anemia (2 sources) Acute posthemorrhagic anemia; Translations: [Acute posthemorrhagic anemia] Onset: 09-04-2023 09-05-2023 Episodic Calculus of urinary tract (2 sources) Kidney stone; Translations: [Calculus of kidney] Onset: 10-20-2023 10-20-2023 Episodic Gastrointestinal hemorrhage (8 sources) Melena; Translations: [Melena] Onset: 09-04-2023 Resolved: 10-24-2023 09-04-2023 Episodic Intestinal infection (2 sources) Clostridium difficile diarrhea; Translations: [Enterocolitis due to Clostridium difficile, not specified as recurrent] Onset: 09-05-2023 09-05-2023 Episodic Other disorders of stomach and duodenum (2 sources) Arteriovenous malformation of duodenum; Translations: [Angiodysplasia of stomach and duodenum with bleeding] Onset: 09-04-2023 09-05-2023 Episodic Other disorders of stomach and duodenum (2 sources) Arteriovenous malformation of stomach; Translations: [Angiodysplasia of stomach and duodenum with bleeding] Onset: 09-06-2023 10-24-2023 Episodic Pneumonia (except that caused by tuberculosis or sexually transmitted disease) (1 source) Pneumonia, unspecified organism; Translations: [Pneumonia, unspecified organism] Onset: 10-20-2023 Episodic Results Test Name Value Interpretation Reference Range Facility Cult,Fluidon 03-29-2024 Cult,Fluid Specimen Description .PERITONEAL DIALYSIS FLUID Direct Exam FEW NEUTROPHILS NO ORGANISMS SEEN Gram stain made from cytocentrifuged specimen. Organisms and cells will be concentrated. Culture NO GROWTH 6 DAYS Report Status FINAL 03/29/2024 Normal [facility] Comment on above: Performed By: #### M G, PRCAL, CMPX, LACTIC, CDP #### [email or web address] [address] [place] [address] [id number] Exchange Architect: Lew Ugalde MD Cult,Bloodon 03-27-2024 Cult,Blood Specimen Description .BLOOD Special Requests R HAND 1.7ML Culture NO GROWTH 5 DAYS Report Status FINAL 03/27/2024 Normal [facility] Comment on above: Performed By: #### M G, PRCAL, CMPX, LACTIC, CDP #### [address] [id number] Exchange Architect: Lew Ugalde MD Fluid Cell Count and Diffon 03-25-2024 Other Cells MONOCYTES/MACROPHAGE S AND MESOTHELIAL CELLS Normal [facility] Comment on above: Result Comment: The reference range and other method performance specifications have not been established for this body fluid. The test result must be integrated into the clinical context for interpretation. Performed By: #### F LDCT #### [address] [id number] Exchange Architect: Lew Ugalde MD Basic Metab w/rfx [facility] 03-24 Anion gap [Moles/Vol] 14 mmol/L Normal 9-16 [facility] Comment on above: Performed By: #### C DP, MG, BMPX #### [address] [id number] Exchange Architect: Lew Ugalde MD Calcium [Mass/Vol] 8.7 mg/dL Normal 8.6-10.4 [facility] Comment on above: Performed By: #### C DP, MG, BMPX #### [address] [id number] Exchange Architect: Lew Ugalde MD Chloride [Moles/Vol] 102 mmol/L Normal 98-107 [facility] Comment on above: Performed By: #### C DP, MG, BMPX #### [address] [id number] Exchange Architect: Lew Ugalde MD CO2 [Moles/Vol] 22 mmol/L Normal 20-31 [facility] Comment on above: Performed By: #### C DP, MG, BMPX #### [address] [address] Exchange Architect: Lew Ugalde MD Creatinine [Mass/Vol] 12.7 mg/dL Critically high 0.50-0.90 [facility] Comment on above: Result Comment: Prev ious Alert Value Reported Performed By: #### C DP, MG, BMPX #### [address] [id number] Exchange Architect: Lew Ugalde MD GFR/1.73 sq M.predicted among non-blacks MDRD (S/P/Bld) [Vol rate/Area] 3 mL/min/{1.73_m2} Low >60 [facility] Comment on above: Result Comment: These results are not intended for use in patients <18 years of age. eGFR results are calculated without a race factor using the 2020 CKD-EPI equation. Careful clinical correlation is recommended, particularly when comparing to results calculated using previous equations. The CKD-EPI equation is less accurate in patients with extremes of muscle mass, extra-renal metabolism of creatine, excessive creatine ingestion, or following therapy that affects renal tubular secretion. Performed By: #### C DP, MG, BMPX #### [address] [id number] Exchange Architect: Lew Ugalde MD Glucose [Mass/Vol] 85 mg/dL Normal 74-99 [facility] Comment on above: Performed By: #### C DP, MG, BMPX #### [facility] [employer] [address] [place] [id number] Exchange Architect: Lew Ugalde MD Potassium [Moles/Vol] 3.4 mmol/L Low 3.7-5.3 [facility] Comment on above: Performed By: #### C DP, MG, BMPX #### [facility] [employer] [address] [place] [id number] Exchange Architect: Lew Ugalde MD Sodium [Moles/Vol] 138 mmol/L Normal 136-145 [facility] Comment on above: Performed By: #### C DP, MG, BMPX #### [address] [place], [place] [id number] Exchange Architect: Lew Ugalde MD Urea nitrogen [Mass/Vol] 35 mg/dL High 8- [facility] Comment on above: Performed By: #### C DP, MG, BMPX #### [address] [id number] Exchange Architect: Lew Ugalde MD Magnesiumon 03-24-2024 Magnesium [Mass/Vol] 1.9 mg/dL Normal 1.6-2.4 [facility] Comment on above: Performed By: #### C DP, MG, BMPX #### [address] [id number] Exchange Architect: Lew Ugalde MD XR CHEST PORTABLEon 03-24-20 XR CHEST PORTABLE EXAMINATION: ONE X-RAY VIEW OF THE CHEST 03/24/2024 12:08 pm COMPARISON: 03/22/2024 and 10/20/2023. HISTORY: ORDERING SYSTEM PROVIDED HISTORY: Chest pain TECHNOLOGIST PROVIDED HISTORY: Chest pain FINDINGS: Overlying items external to the patient somewhat limit evaluation. Elevated left hemidiaphragm redemonstrated. Stable likely adjacent mild chronic scarring or compressive atelectasis. Lungs are otherwise clear. No pleural effusions or pneumothoraces. Cardiac and mediastinal silhouettes are within normal limits. No acute osseous abnormality. IMPRESSION: 1. No acute cardiopulmonary process. 2. Elevated left hemidiaphragm redemonstrated. Stable likely adjacent mild chronic scarring or compressive atelectasis. Interpreted by: Torsten Matias MD Signed by: Torsten Matias MD 03/24/24 Final result Normal [facility] Basic Metab w/rfx MGon 03-23 Anion gap [Moles/Vol] 16 mmol/L Normal 9-16 [facility] Comment on above: Performed By: #### M G, PRCAL, CMPX, LACTIC, CDP #### [address] [phone] Exchange Architect: Lew Ugalde MD Calcium [Mass/Vol] 8.4 mg/dL Low 8.6-10.4 [facility] Comment on above: Performed By: #### M G, PRCAL, CMPX, LACTIC, CDP #### [facility] [employer] [address] [place] [address] Exchange Architect: Lew Ugalde MD Chloride [Moles/Vol] 101 mmol/L Normal 98-107 [facility] Comment on above: Performed By: #### M G, PRCAL, CMPX, LACTIC, CDP #### [facility] [address] [place] [address] Exchange Architect: Lew Ugalde MD CO2 [Moles/Vol] 21 mmol/L Normal 20-31 [facility] Comment on above: Performed By: #### M G, PRCAL, CMPX, LACTIC, CDP #### [facility] [employer] [address] [place] [address] 960[address] Exchange Architect: Lew Ugalde MD Creatinine [Mass/Vol] 13.0 mg/dL Critically high 0.50-0.90 [facility] Comment on above: Result Comment: Prev ious Alert Value Reported Performed By: #### M G, PRCAL, CMPX, LACTIC, CDP #### [address] [address] Exchange Architect: Lew Ugalde MD GFR/1.73 sq M.predicted among non-blacks MDRD (S/P/Bld) [Vol rate/Area] 3 mL/min/{1.73_m2} Low >60 [facility] Comment on above: Result Comment: These results are not intended for use in patients <18 years of age. eGFR results are calculated without a race factor using the 2020 CKD-EPI equation. Careful clinical correlation is recommended, particularly when comparing to results calculated using previous equations. The CKD-EPI equation is less accurate in patients with extremes of muscle mass, extra-renal metabolism of creatine, excessive creatine ingestion, or following therapy that affects renal tubular secretion. Performed By: #### M G, PRCAL, CMPX, LACTIC, CDP #### [facility] [address] [place] [address] Exchange Architect: Lew Ugalde MD Glucose [Mass/Vol] 103 mg/dL High 74-99 [facility] Comment on above: Performed By: #### M G, PRCAL, CMPX, LACTIC, CDP #### [facility] [address] [place] [address] Exchange Architect: Lew Ugalde MD Potassium [Moles/Vol] 3.6 mmol/L Low 3.7-5.3 [facility] Comment on above: Performed By: #### M G, PRCAL, CMPX, LACTIC, CDP #### [facility] [address] [place] [address] 7[address] Exchange Architect: Lew Ugalde MD Sodium [Moles/Vol] 138 mmol/L Normal 136-145 [facility] Comment on above: Performed By: #### M G, PRCAL, CMPX, LACTIC, CDP #### [facility] [employer] [address] [place] [address] Exchange Architect: Lew Ugalde MD Urea nitrogen [Mass/Vol] 38 mg/dL High 8-23 [facility] Comment on above: Performed By: #### M G, PRCAL, CMPX, LACTIC, CDP #### [address] [address] Exchange Architect: Lew Ugalde MD C diff Ag + Toxinon 03-23-20 24 C diff Ag + Toxin INDETERMINATE: Refle x testing to molecular method Abnormal NEG [facility] Comment on above: Performed By: #### C DP, MG, BMPX #### [facility] [address] [place] [address]47 Exchange Architect: Lew Ugalde MD C difficile tox, PCRon 03-23 C difficile tox, PCR POSITIVE: C diffici le tcdB nucleic acid detected by RT-PCR. Abnormal CDTNEG [facility] Comment on above: Performed By: #### C DP, MG, BMPX #### [address] [address] Exchange Architect: Lew Ugalde MD Specimen Description .FECES Normal [facility] Comment on above: Performed By: #### C DP, MG, BMPX #### [address] [address] Exchange Architect: Lew Ugalde MD CBC with Diffon 03-23-2024 Abs. Basophil 0.07 k/uL Normal 0.00-0.20 [facility] Comment on above: Performed By: #### M G, PRCAL, CMPX, LACTIC, CDP #### [place] [address] Exchange Architect: Lew Ugalde MD Abs.Imm.Granulocyte 0.03 k/uL Normal 0.00-0.30 [facility] Comment on above: Performed By: #### M G, PRCAL, CMPX, LACTIC, CDP #### [address] [address] Exchange Architect: Lew Ugalde MD Abs.Neutrophil (Seg) 6.96 k/uL Normal 1.50-8.10 [facility] Comment on above: Performed By: #### M G, PRCAL, CMPX, LACTIC, CDP #### [address] [address] Exchange Architect: Lew Ugalde MD Basophils/100 WBC (Bld) 1 % Normal 0-2 [facility] Comment on above: Performed By: #### M G, PRCAL, CMPX, LACTIC, CDP #### [address] [address] Exchange Architect: Lew Ugalde MD Eosinophils (Bld) [#/Vol] 0.36 10*3/uL Normal 0.00-0.44 [facility] Comment on above: Performed By: #### M G, PRCAL, CMPX, LACTIC, CDP #### [address] [address] Exchange Architect: Lew Ugalde MD Eosinophils/100 WBC (Bld) 4 % Normal 1-4 [facility] Comment on above: Performed By: #### M G, PRCAL, CMPX, LACTIC, CDP #### [facility] [employer] [address] [place] [phone] Exchange Architect: Lew Ugalde MD Erythrocyte distribution width (RBC) [Ratio] 14.6 % High 11.8-14.4 [facility] Comment on above: Performed By: #### M G, PRCAL, CMPX, LACTIC, CDP #### [address] [address] Exchange Architect: Lew Ugalde MD Hematocrit (Bld) [Volume fraction] 29.3 % Low 36.3-47.1 [facility] Comment on above: Performed By: #### M G, PRCAL, CMPX, LACTIC, CDP #### [facility] [employer] [address] [place] [address] Exchange Architect: Lew Ugalde MD Hemoglobin (Bld) [Mass/Vol] 9.1 g/dL Low 11.9-15.1 [facility] Comment on above: Performed By: #### M G, PRCAL, CMPX, LACTIC, CDP #### [address] [address] Exchange Architect: Lew Ugalde MD Immature granulocytes/100 WBC (Bld) 0 % Normal 0 [facility] Comment on above: Performed By: #### M G, PRCAL, CMPX, LACTIC, CDP #### [facility] [employer] [address] [place] [address] Exchange Architect: Lew Ugalde MD Lymphocytes (Bld) [#/Vol] 1.67 10*3/uL Normal 1.10-3.70 [facility] Comment on above: Performed By: #### M G, PRCAL, CMPX, LACTIC, CDP #### [address] [address] Exchange Architect: Lew Ugalde MD Lymphocytes/100 WBC (Bld) 17 % Low 24-43 [facility] Comment on above: Performed By: #### M G, PRCAL, CMPX, LACTIC, CDP #### [address] [address] Exchange Architect: Lew Ugalde MD MCH (RBC) [Entitic mass] 33.0 pg Normal 25.2-33.5 [facility] Comment on above: Performed By: #### M G, PRCAL, CMPX, LACTIC, CDP #### [place] [address] Exchange Architect: Lew Ugalde MD MCHC (RBC) [Mass/Vol] 31.1 g/dL Normal 28.4-34.8 [facility] Comment on above: Performed By: #### M G, PRCAL, CMPX, LACTIC, CDP #### [address] [address] Exchange Architect: Lew Ugalde MD MCV (RBC) [Entitic vol] 106.2 fL High 82.6-102.9 [facility] Comment on above: Performed By: #### M G, PRCAL, CMPX, LACTIC, CDP #### [place] [address] Exchange Architect: Lew Ugalde MD Monocytes (Bld) [#/Vol] 0.80 10*3/uL Normal 0.10-1.20 [facility] Comment on above: Performed By: #### M G, PRCAL, CMPX, LACTIC, CDP #### [address] [address] Exchange Architect: Lew Ugalde MD Monocytes/100 WBC (Bld) 8 % Normal 3-12 M [facility] Comment on above: Performed By: #### M G, PRCAL, CMPX, LACTIC, CDP #### [address] [address] Exchange Architect: Lew Ugalde MD Neutrophil (Seg) 70 % High 36-65 [facility] Comment on above: Performed By: #### M G, PRCAL, CMPX, LACTIC, CDP #### [address] [address] Exchange Architect: Lew Ugalde MD NRBC Automated 0.2 per 100 WBC High 0.0 [facility] Comment on above: Performed By: #### M G, PRCAL, CMPX, LACTIC, CDP #### [address] [address] Exchange Architect: Lew Ugalde MD Platelet mean volume (Bld) [Entitic vol] 10.2 fL Normal 8.1-13.5 [facility] Comment on above: Performed By: #### M G, PRCAL, CMPX, LACTIC, CDP #### [address] [address] Exchange Architect: Lew Ugalde MD Platelets (Bld) [#/Vol] 247 10*3/uL Normal 138-453 [facility] Comment on above: Performed By: #### M G, PRCAL, CMPX, LACTIC, CDP #### [address] [address] Exchange Architect: Lew Ugalde MD RBC (Bld) [#/Vol] 2.76 10*6/uL Low 3.95-5.11 [facility] Comment on above: Performed By: #### M G, PRCAL, CMPX, LACTIC, CDP #### [address] [address] Exchange Architect: Lew Ugalde MD RBC morphology finding Nom (Bld) ANISOCYTOSIS PRESENT Normal [facility] Comment on above: Result Comment: MACR OCYTOSIS PRESENT Performed By: #### M G, PRCAL, CMPX, LACTIC, CDP #### [address] [address] Exchange Architect: Lew Ugalde MD WBC (Bld) [#/Vol] 9.9 10*3/uL Normal 3.5-11.3 [facility] Comment on above: Performed By: #### M G, PRCAL, CMPX, LACTIC, CDP #### [address] [address] Exchange Architect: Lew Ugalde MD Fluid Cell Count and Diffon 03-23-2024 Lymphocytes/100 WBC (Bld) 20 % Normal [facility] Comment on above: Result Comment: The reference range and other method performance specifications have not been established for this body fluid. The test result must be integrated into the clinical context for interpretation. Performed By: #### F LDCT #### [address] [address] Exchange Architect: Lew Ugalde MD Neutrophils/100 WBC (Bld) 40 % Normal [facility] Comment on above: Result Comment: The reference range and other method performance specifications have not been established for this body fluid. The test result must be integrated into the clinical context for interpretation. Performed By: #### F LDCT #### [address] [address] Exchange Architect: Lew Ugalde MD RBC (Bld) [#/Vol] 10*6/uL Normal [facility] Comment on above: Result Comment: The reference range and other method performance specifications have not been established for this body fluid. The test result must be integrated into the clinical context for interpretation. Performed By: #### F LDCT #### [address] [address] Exchange Architect: Lew Ugalde MD WBC (Bld) [#/Vol] 0.002 10*3/uL Normal [facility] Comment on above: Result Comment: The reference range and other method performance specifications have not been established for this body fluid. The test result must be integrated into the clinical context for interpretation. Performed By: #### F LDCT #### [address] [address] Exchange Architect: Lew Ugalde MD K (Potassium)on 03-23-2024 Potassium [Moles/Vol] 3.2 mmol/L Low 3.7-5.3 [facility] Comment on above: Performed By: #### M G, PRCAL, CMPX, LACTIC, CDP #### [address] [address] Exchange Architect: Lew Ugalde MD Magnesiumon 03-23-2024 Magnesium [Mass/Vol] 2.0 mg/dL Normal 1.6-2.4 [facility] Comment on above: Performed By: #### M G, PRCAL, CMPX, LACTIC, CDP #### [address] [address] Exchange Architect: Lew Ugalde MD PTon 03-23-2024 INR Coag (PPP) [Relative time] 1.1 {INR} Normal [facility] Comment on above: Result Comment: Therapeutic Range: Moderate Anticoagulant Intensity: INR = 2.0-3.0 High Anticoagulant Intensity: INR = 2.5-3.5 Performed By: #### M G, PRCAL, CMPX, LACTIC, CDP #### [address] [address] Exchange Architect: Lew Ugalde MD PT Coag (PPP) [Time] 13.8 s Normal 11.7-14.9 [facility] Comment on above: Performed By: #### M G, PRCAL, CMPX, LACTIC, CDP #### [facility] [employer] [address] [place] [address] Exchange Architect: Lew Ugalde MD Stool PCR Batteryon 03-23-20 24 Campylobacter sp PCR NEGATIVE: No Campylobacter spp. (jejuni or coli) DNA Detected Normal CAMNEG [facility] Comment on above: Performed By: #### M G, PRCAL, CMPX, LACTIC, CDP #### [facility] [employer] [address] [place] [address] Exchange Architect: Lew Ugalde MD E coli enterotox PCR NEGATIVE: No Enterotoxigenic E. coli (ETEC) Heat-labile and heat-stable (LT/ST) Normal EECNEG [facility] Comment on above: Result Comment: DNA Detected Performed By: #### M G, PRCAL, CMPX, LACTIC, CDP #### [facility] [address] [place] [address] Exchange Architect: Lew Ugalde MD Plesiomonas sp PCR Negative Normal PLENEG [facility] Comment on above: Performed By: #### M G, PRCAL, CMPX, LACTIC, CDP #### [facility] [employer] [address] [place] [address] Exchange Architect: Lew Ugalde MD Salmonella sp PCR Negative Normal SALNEG [facility] Comment on above: Performed By: #### M G, PRCAL, CMPX, LACTIC, CDP #### [facility] [address] [place] [address] Exchange Architect: Lew Ugalde MD Shigatoxin gene PCR Negative Normal STXNEG [facility] Comment on above: Performed By: #### M G, PRCAL, CMPX, LACTIC, CDP #### [facility] [address] [place] [address] Exchange Architect: Lew Ugalde MD Shigella sp PCR Negative Normal SHINEG [facility] Comment on above: Performed By: #### M G, PRCAL, CMPX, LACTIC, CDP #### [email or web address] [address] [place] [address] Exchange Architect: Lew Ugalde MD Vibrio sp PCR NEGATIVE: No Vibrio (V. vulnificus, V, parahaemolyticus and V. cholerae) DNA Normal VIBNEG [facility] Comment on above: Result Comment: Dete cted Performed By: #### M G, PRCAL, CMPX, LACTIC, CDP #### [email or web address] [address] [place] [address] Exchange Architect: Lew Ugalde MD Yersinia gene PCR Negative Normal YERNEG [facility] Comment on above: Performed By: #### M Rafaela, PRCAL, CMPX, LACTIC, CDP #### [email or web address] [address] [place] [address] Exchange Architect: Lew Ugalde MD BLOOD CULTUREon 03-22-2024 Bacteria identified Aer cx Nom (Bld) CULTURE RESULTS NO GROWTH 5 DAYS Normal [facility] Basic Metab w/rfx MGon 03-22 Anion gap [Moles/Vol] 18 mmol/L High 9-16 [facility] Comment on above: Performed By: #### M Rafaela, PRCAL, CMPX, LACTIC, CDP #### [facility] [address] [place] [address] Exchange Architect: Lew Ugalde MD Calcium [Mass/Vol] 9.1 mg/dL Normal 8.6-10.4 [facility] Comment on above: Performed By: #### M G, PRCAL, CMPX, LACTIC, CDP #### [email or web address] [address] [place] [address] Exchange Architect: Lew Ugalde MD Chloride [Moles/Vol] 100 mmol/L Normal 98-107 [facility] Comment on above: Performed By: #### M G, PRCAL, CMPX, LACTIC, CDP #### [facility] [address] [place] [address] Exchange Architect: Lew Ugalde MD CO2 [Moles/Vol] 24 mmol/L Normal 20-31 [facility] Comment on above: Performed By: #### M G, PRCAL, CMPX, LACTIC, CDP #### [facility] [address] [place] [address] Exchange Architect: Lew Ugalde MD Creatinine [Mass/Vol] 13.7 mg/dL Critically high 0.50-0.90 [facility] Comment on above: Performed By: #### M G, PRCAL, CMPX, LACTIC, CDP #### [address] [address] Exchange Architect: Lew Ugalde MD GFR/1.73 sq M.predicted among non-blacks MDRD (S/P/Bld) [Vol rate/Area] 3 mL/min/{1.73_m2} Low >60 [facility] Comment on above: Result Comment: These results are not intended for use in patients <18 years of age. eGFR results are calculated without a race factor using the 2020 CKD-EPI equation. Careful clinical correlation is recommended, particularly when comparing to results calculated using previous equations. The CKD-EPI equation is less accurate in patients with extremes of muscle mass, extra-renal metabolism of creatine, excessive creatine ingestion, or following therapy that affects renal tubular secretion. Performed By: #### M G, PRCAL, CMPX, LACTIC, CDP #### [facility] [place] [address] Exchange Architect: Lew Ugalde MD Glucose [Mass/Vol] 78 mg/dL Normal 74-99 [facility] Comment on above: Performed By: #### M G, PRCAL, CMPX, LACTIC, CDP #### [facility] [address] [place] [address] Exchange Architect: Lew Ugalde MD Potassium [Moles/Vol] 3.5 mmol/L Low 3.7-5.3 [facility] Comment on above: Performed By: #### Luis A G, PRCAL, CMPX, LACTIC, CDP #### [email or web address] [facility] [place] [address] Exchange Architect: Lew Ugalde MD Sodium [Moles/Vol] 142 mmol/L Normal 136-145 [facility] Comment on above: Performed By: #### Luis A G, PRCAL, CMPX, LACTIC, CDP #### [email or web address] [address] [place] [address] Exchange Architect: Lew Ugalde MD Urea nitrogen [Mass/Vol] 45 mg/dL High 8-23 [facility] Comment on above: Performed By: #### Luis A Russo, PRCAL, CMPX, LACTIC, CDP #### [email or web address] [address] [place] [address] Exchange Architect: Lew Ugalde MD CBC AND AUTO DIFFon 03-22-20 24 ABSOLUTE BASOPHIL 0.1 X10E9/L Normal 0.0-0.2 [facility] Comment on above: Performed By: #### C BCA, PINR, 19751-1, CMP, 3040-3, 99780-9, 54339-9, 99569-3 #### [facility] ([id number]) [address] [place] [address] ABSOLUTE NEUTROPHIL 12.2 X10E9/L High 1.5-6.6 [facility] Comment on above: Performed By: #### C BCA, PINR, 47787-0, CMP, 3040-3, 75558-0, 74942-0, 49088-7 #### [facility] ([id number]) [address] [place] [address] Basophils/100 WBC (Bld) 0.7 % Normal [facility] Comment on above: Performed By: #### C BCA, PINR, 43114-0, CMP, 3040-3, 41166-8, 57987-4, 87195-7 #### [facility] ([id number]) [address] [place] [address] Eosinophils (Bld) [#/Vol] 0.1 10*3/uL Normal 0.0-0.4 [facility] Comment on above: Performed By: #### C BCA, PINR, 26557-5, CMP, 3040-3, 93418-5, 67575-5, 75424-3 #### [facility] ([id number]) [address] [place] [address] Eosinophils/100 WBC (Bld) 0.5 % Normal [facility] Comment on above: Performed By: #### C BCA, PINR, 32027-1, CMP, 3040-3, 79852-2, 59492-2, 99272-7 #### [facility] ([id number]) [address] [place] [address] Erythrocyte distribution width (RBC) [Ratio] 14.8 % Normal 11.5-15.0 [facility] Comment on above: Performed By: #### C BCA, PINR, 02250-8, CMP, 3040-3, 93310-8, 23822-4, 85061-6 #### [facility] ([id number]) [address] [place] [address] Hematocrit (Bld) [Volume fraction] 33.9 % Low 35-47 [facility] Comment on above: Performed By: #### C BCA, PINR, 49779-0, CMP, 3040-3, 45163-5, 28486-7, 14176-3 #### [facility] ([id number]) [address] [place] [address] Hemoglobin (Bld) [Mass/Vol] 11.4 g/dL Low 11.7-15.5 [facility] Comment on above: Performed By: #### C BCA, PINR, 89035-9, CMP, 3040-3, 66255-6, 02671-7, 76706-2 #### [facility] ([id number]) [address] [place] [address] Lymphocytes (Bld) [#/Vol] 1.5 10*3/uL Normal 1.0-3.5 [facility] Comment on above: Performed By: #### C BCA, PINR, 50716-4, CMP, 3040-3, 55641-8, 30571-6, 64324-9 #### [facility] ([id number]) [address] [place] [address] Lymphocytes/100 WBC (Bld) 9.8 % Normal [facility] Comment on above: Performed By: #### C BCA, PINR, 46953-5, CMP, 3040-3, 48533-2, 87381-2, 91372-1 #### [facility] ([id number]) [address] [place] [address] MCH (RBC) [Entitic mass] 33.3 pg Normal 27-34 [facility] Comment on above: Performed By: #### C BCA, PINR, 85471-0, CMP, 3040-3, 55722-0, 22388-0, 60137-3 #### [facility] ([id number]) [address] [place] [address] MCHC (RBC) [Mass/Vol] 33.7 g/dL Normal 32-36 [facility] Comment on above: Performed By: #### C BCA, PINR, 00139-0, CMP, 3040-3, 90864-3, 66870-5, 14239-4 #### [facility] ([id number]) [address] [place] [address] MCV (RBC) [Entitic vol] 99 fL Normal 80-100 [facility] Comment on above: Performed By: #### C BCA, PINR, 96071-6, CMP, 3040-3, 86036-0, 11186-6, 89256-8 #### [facility] ([id number]) [address] [place] [address] Monocytes (Bld) [#/Vol] 1.0 10*3/uL High 0-0.9 [facility] Comment on above: Performed By: #### C BCA, PINR, 66342-8, CMP, 3040-3, 84555-3, 79161-2, 69429-6 #### [facility] ([id number]) [address] [place] [address]656 Monocytes/100 WBC (Bld) 7.0 % Normal [facility] Comment on above: Performed By: #### C BCA, PINR, 03210-1, CMP, 3040-3, 73637-8, 91435-8, 32627-7 #### [facility] ([id number]) [address] [place] [address]85 Neutrophils/100 WBC (Bld) 82.0 % Normal [facility] Comment on above: Performed By: #### C BCA, PINR, 97102-0, CMP, 3040-3, 44906-8, 77045-6, 17424-9 #### [facility] ([id number]) [address] [place] [address] Platelet mean volume (Bld) [Entitic vol] 8.7 fL Normal 7-12 [facility] Comment on above: Performed By: #### C BCA, PINR, 08611-4, CMP, 3040-3, 35530-9, 52251-2, 68432-7 #### [facility] ([id number]) [address] [place] [address]21 Platelets (Bld) [#/Vol] 386 10*3/uL Normal 150-450 [facility] Comment on above: Performed By: #### C BCA, PINR, 75702-5, CMP, 3040-3, 97594-7, 73569-4, 79267-5 #### [facility] ([id number]) [address] [place] [address]1234 RBC COUNT 3.44 X10E12/L Low 3.80-5.20 [facility] Comment on above: Performed By: #### C BCA, PINR, 02215-6, CMP, 3040-3, 25571-1, 45613-7, 90147-2 #### [facility] ([id number]) [address] [place] [address] WBC (Bld) [#/Vol] 14.9 10*3/uL High 4.0-11.0 [facility] Comment on above: Performed By: #### C BCA, PINR, 60216-5, CMP, 3040-3, 80810-9, 54737-8, 46885-0 #### [facility] ([id number]) [address] [place] [address]24 CBC with Diffon 03-22-2024 Abs. Basophil 0.05 k/uL Normal 0.00-0.20 [facility] Comment on above: Performed By: #### M G, PRCAL, CMPX, LACTIC, CDP #### [email or web address] [address] [place] [address] Exchange Architect: Lew Ugalde MD Abs.Imm.Granulocyte 0.06 k/uL Normal 0.00-0.30 [facility] Comment on above: Performed By: #### M G, PRCAL, CMPX, LACTIC, CDP #### [email or web address] [address] [place] [address] Exchange Architect: Lew Ugalde MD Abs.Neutrophil (Seg) 10.44 k/uL High 1.50-8.10 [facility] Comment on above: Performed By: #### M G, PRCAL, CMPX, LACTIC, CDP #### [address] [address] Exchange Architect: Lew Ugalde MD Basophils/100 WBC (Bld) 0 % Normal 0-2 M [facility] Comment on above: Performed By: #### M G, PRCAL, CMPX, LACTIC, CDP #### [place] [address] Exchange Architect: Lew Ugalde MD Eosinophils (Bld) [#/Vol] 0.22 10*3/uL Normal 0.00-0.44 [facility] Comment on above: Performed By: #### M G, PRCAL, CMPX, LACTIC, CDP #### [place] [address] Exchange Architect: Lew Ugalde MD Eosinophils/100 WBC (Bld) 2 % Normal 1-4 [facility] Comment on above: Performed By: #### M G, PRCAL, CMPX, LACTIC, CDP #### [place] [address] Exchange Architect: Lew Ugalde MD Erythrocyte distribution width (RBC) [Ratio] 14.5 % High 11.8-14.4 [facility] Comment on above: Performed By: #### M G, PRCAL, CMPX, LACTIC, CDP #### [place] [address] Exchange Architect: Lew Ugalde MD Hematocrit (Bld) [Volume fraction] 32.8 % Low 36.3-47.1 [facility] Comment on above: Performed By: #### M G, PRCAL, CMPX, LACTIC, CDP #### [address] [place] [address] Exchange Architect: Lew Ugalde MD Hemoglobin (Bld) [Mass/Vol] 10.7 g/dL Low 11.9-15.1 [facility] Comment on above: Performed By: #### M G, PRCAL, CMPX, LACTIC, CDP #### [address] [address] Exchange Architect: Lew Ugalde MD Immature granulocytes/100 WBC (Bld) 0 % Normal 0 [facility] Comment on above: Performed By: #### M G, PRCAL, CMPX, LACTIC, CDP #### [address] [address] Exchange Architect: Lew Ugalde MD Lymphocytes (Bld) [#/Vol] 2.18 10*3/uL Normal 1.10-3.70 [facility] Comment on above: Performed By: #### M G, PRCAL, CMPX, LACTIC, CDP #### [address] [address] Exchange Architect: Lew Ugalde MD Lymphocytes/100 WBC (Bld) 16 % Low 24-43 [facility] Comment on above: Performed By: #### M G, PRCAL, CMPX, LACTIC, CDP #### [address] [address] Exchange Architect: Lew Ugalde MD MCH (RBC) [Entitic mass] 33.1 pg Normal 25.2-33.5 [facility] Comment on above: Performed By: #### M G, PRCAL, CMPX, LACTIC, CDP #### [address] [address] Exchange Architect: Lew Ugalde MD MCHC (RBC) [Mass/Vol] 32.6 g/dL Normal 28.4-34.8 [facility] Comment on above: Performed By: #### M G, PRCAL, CMPX, LACTIC, CDP #### [address] [address] Exchange Architect: Lew Ugalde MD MCV (RBC) [Entitic vol] 101.5 fL Normal 82.6-102.9 [facility] Comment on above: Performed By: #### M G, PRCAL, CMPX, LACTIC, CDP #### [address] [address] Exchange Architect: Lew Ugalde MD Monocytes (Bld) [#/Vol] 1.06 10*3/uL Normal 0.10-1.20 [facility] Comment on above: Performed By: #### M G, PRCAL, CMPX, LACTIC, CDP #### [address] [address] Exchange Architect: Lew Ugalde MD Monocytes/100 WBC (Bld) 8 % Normal 3-12 [facility] Comment on above: Performed By: #### M G, PRCAL, CMPX, LACTIC, CDP #### [address] [address] Exchange Architect: Lew Ugalde MD Neutrophil (Seg) 74 % High 36-65 [facility] Comment on above: Performed By: #### M G, PRCAL, CMPX, LACTIC, CDP #### [address] [address] Exchange Architect: Lew Ugalde MD NRBC Automated 0.0 per 100 WBC Normal 0.0 [facility] Comment on above: Performed By: #### M G, PRCAL, CMPX, LACTIC, CDP #### [address] [address] Exchange Architect: Lew Ugalde MD Platelet mean volume (Bld) [Entitic vol] 10.1 fL Normal 8.1-13.5 [facility] Comment on above: Performed By: #### M G, PRCAL, CMPX, LACTIC, CDP #### [address] [address] Exchange Architect: Lew Ugalde MD Platelets (Bld) [#/Vol] 259 10*3/uL Normal 138-453 [facility] Comment on above: Performed By: #### M G, PRCAL, CMPX, LACTIC, CDP #### [facility] [address] [place] [address] Exchange Architect: Lew Ugalde MD RBC (Bld) [#/Vol] 3.23 10*6/uL Low 3.95-5.11 [facility] Comment on above: Performed By: #### M G, PRCAL, CMPX, LACTIC, CDP #### [address] [address] Exchange Architect: Lew Ugalde MD RBC morphology finding Nom (Bld) ANISOCYTOSIS PRESENT Normal [facility] Comment on above: Performed By: #### M G, PRCAL, CMPX, LACTIC, CDP #### [facility] [employer] [address] [place] [address] Exchange Architect: Lew Ugalde MD WBC (Bld) [#/Vol] 14.0 10*3/uL High 3.5-11.3 [facility] Comment on above: Performed By: #### M G, PRCAL, CMPX, LACTIC, CDP #### [facility] [address] [place] [address] Exchange Architect: Lew Ugalde MD COMPREHENSIVE METABOLIC PANE Bc 03-22-2024 Albumin [Mass/Vol] 3.2 g/dL Normal 3.2-5.3 [facility] Comment on above: Performed By: #### C BCA, PINR, 34295-9, CMP, 3040-3, 00156-9, 29647-8, 08437-5 #### [facility] ([id number]) [address] [place] [address] ALP [Catalytic activity/Vol] 119 U/L Normal 39-130 [facility] Comment on above: Performed By: #### C BCA, PINR, 86249-2, CMP, 3040-3, 63278-0, 15232-2, 02506-7 #### [facility] ([id number]) [address] [place] [address] ALT [Catalytic activity/Vol] 37 U/L High 0-31 [facility] Comment on above: Result Comment: SPEC IMEN HEMOLYZED, RESULTS INCREASED Performed By: #### C BCA, PINR, 28637-7, CMP, 3040-3, 45496-9, 46932-9, 75290-7 #### [facility] ([id number]) [address] [place] [address] Anion gap [Moles/Vol] 17 mmol/L High 5-15 [facility] Comment on above: Performed By: #### C BCA, PINR, 96757-3, CMP, 3040-3, 83002-3, 87955-4, 85854-3 #### [facility] ([id number]) [address] [place] [address] AST [Catalytic activity/Vol] 76 U/L High 0-41 [facility] Comment on above: Result Comment: SPEC IMEN HEMOLYZED, RESULTS INCREASED Performed By: #### C BCA, PINR, 38710-0, CMP, 3040-3, 60325-5, 05454-9, 01938-2 #### [facility] ([id number]) [address] [place] [address] Bilirubin [Mass/Vol] 0.8 mg/dL Normal 0.3-1.2 [facility] Comment on above: Result Comment: RESU LTS QUESTIONABLE DUE TO HEMOLYSIS Performed By: #### C BCA, PINR, 46423-7, CMP, 3040-3, 77640-3, 23774-5, 16549-8 #### [facility] ([id number]) [address] [place] [address] Calcium [Mass/Vol] 9.2 mg/dL Normal 8.5-10.5 [facility] Comment on above: Performed By: #### C BCA, PINR, 02205-9, CMP, 3040-3, 98590-8, 24545-0, 72470-3 #### [facility] ([id number]) [address] [place] [address] Chloride [Moles/Vol] 96 mmol/L Low 98-109 [facility] Comment on above: Performed By: #### C BCA, PINR, 56164-1, CMP, 3040-3, 38959-9, 62488-8, 43877-1 #### [facility] ([id number]) [address] [place] [address] [place] [address] CO2 [Moles/Vol] 24 mmol/L Normal 22-32 [facility] Comment on above: Performed By: #### C BCA, PINR, 44176-1, CMP, 3040-3, 98659-4, 07970-1, 13727-5 #### [facility] ([id number]) [address] [place] [address] [place] [address] Creatinine [Mass/Vol] 12.81 mg/dL High 0.40-1.00 [facility] Comment on above: Result Comment: METH OD TRACEABLE TO IDMS STANDARD Performed By: #### C BCA, PINR, 61912-8, CMP, 3040-3, 07344-6, 26568-5, 90556-6 #### [facility] ([id number]) [address] [place] [address] [place] [address] GFR/1.73 sq M.predicted among non-blacks MDRD (S/P/Bld) [Vol rate/Area] 3 mL/min/{1.73_m2} Low >59 [facility] Comment on above: Result Comment: Reported eGFR is based on the CKD-EPI 2020 equation that does not use a race coefficient. Performed By: #### C BCA, PINR, 44874-0, CMP, 3040-3, 96328-1, 90519-5, 81257-8 #### [facility] ([id number]) [address] [place] [address] Glucose [Mass/Vol] 108 mg/dL High 65-99 [facility] Comment on above: Performed By: #### C BCA, PINR, 13232-2, CMP, 3040-3, 20311-7, 32503-5, 54879-0 #### [facility] ([id number]) [address] [place] [address] Potassium [Moles/Vol] 3.6 mmol/L Normal 3.5-5.0 [facility] Comment on above: Result Comment: SPEC IMEN HEMOLYZED, RESULTS INCREASED Performed By: #### C BCA, PINR, 88790-0, CMP, 3040-3, 79771-3, 47858-1, 78463-9 #### [facility] ([id number]) [address] [place] [address] Protein [Mass/Vol] 8.2 g/dL High 6.0-8.0 [facility] Comment on above: Performed By: #### C BCA, PINR, 04220-8, CMP, 3040-3, 79528-3, 11943-4, 79450-4 #### [facility] ([id number]) [address] [place] [address] Sodium [Moles/Vol] 137 mmol/L Normal 134-146 [facility] Comment on above: Performed By: #### C BCA, PINR, 74050-4, CMP, 3040-3, 71180-9, 13410-5, 25622-1 #### [facility] ([id number]) [address] [place] [address] Urea nitrogen [Mass/Vol] 46 mg/dL High 5- [facility] Comment on above: Performed By: #### C BCA, PINR, 18190-6, CMP, 3040-3, 27645-4, 54854-2, 62250-8 #### [facility] ([id number]) [address] [facility], [place] [address] CT ABDOMEN AND PELVIS WO CON Ton 03-22-2024 CT ABDOMEN AND PELVIS WO CONT CT ABDOMEN AND PELVIS WO CONT CLINICAL INFORMATION: Abdominal pain, acute, nonlocalized. TECHNIQUE: CT Abdomen and Pelvis without intravenous contrast. All CT scans at this facility use dose modulation, iterative reconstruction, and/or weight based dosing when appropriate to reduce radiation dose to as low as reasonably achievable. COMPARISON: 01/19/2023 FINDINGS: There is large volume ascites is new since the prior study. There is a stable catheter in the left lower abdomen. Although, mild by lack of intravenous contrast, no gross abnormalities seen within the liver, spleen, adrenal glands, or pancreas. The gallbladder has been surgically removed. The right kidney is small and atrophic. There is a stable left renal cyst. No abdominal or retroperitoneal masses or adenopathy are seen. No pelvic masses, adenopathy, fluid collections are identified. Limited images of lung bases are unremarkable. IMPRESSION: * Large volume ascites, new since the previous examination dated 01/19/2023. There is a stable peritoneal catheter in the left lower abdomen. * Small atrophic right kidney * Otherwise normal noncontrast CT abdomen pelvis performed Finalized by Carlene Cortes MD on 03/22/2024 3:15 AM Normal [facility] Comp Metabolic Pr/rfx MGon 0 03-22-2024 Albumin [Mass/Vol] 3.2 g/dL Low 3.5-5.2 [facility] Comment on above: Performed By: #### M G, PRCAL, CMPX, LACTIC, CDP #### [address] [address] Exchange Architect: Lew Ugalde MD Albumin/Glob Ratio 1.0 Normal 1.0-2.5 [facility] Comment on above: Performed By: #### M G, PRCAL, CMPX, LACTIC, CDP #### [facility] [address] [place] [address] Exchange Architect: Lew Ugalde MD Alkaline Phos 98 U/L Normal 35-104 [facility] Comment on above: Performed By: #### M G, PRCAL, CMPX, LACTIC, CDP #### [address] [address] Exchange Architect: Lew Ugalde MD ALT [Catalytic activity/Vol] 21 U/L Normal 10-35 [facility] Comment on above: Performed By: #### M G, PRCAL, CMPX, LACTIC, CDP #### [address] [address] Exchange Architect: Lew Ugalde MD Anion gap [Moles/Vol] 21 mmol/L High 9-16 [facility] Comment on above: Performed By: #### M G, PRCAL, CMPX, LACTIC, CDP #### [facility] [employer] [address] [place] [address] Exchange Architect: Lew Ugalde MD AST [Catalytic activity/Vol] 45 U/L High 10-35 [facility] Comment on above: Performed By: #### M G, PRCAL, CMPX, LACTIC, CDP #### [facility] [employer] [address] [place] [address] Exchange Architect: Lew Ugalde MD Bilirubin [Mass/Vol] 0.2 mg/dL Normal 0.00-1.20 [facility] Comment on above: Performed By: #### M G, PRCAL, CMPX, LACTIC, CDP #### [address] [address] Exchange Architect: Lew Ugalde MD Calcium [Mass/Vol] 8.8 mg/dL Normal 8.6-10.4 [facility] Comment on above: Performed By: #### M G, PRCAL, CMPX, LACTIC, CDP #### [facility] [address] [place] [address] Exchange Architect: Lew Ugalde MD Chloride [Moles/Vol] 100 mmol/L Normal 98-107 [facility] Comment on above: Performed By: #### M G, PRCAL, CMPX, LACTIC, CDP #### [facility] [address] [place] [address] Exchange Architect: Lew Ugalde MD CO2 [Moles/Vol] 19 mmol/L Low 20-31 [facility] Comment on above: Performed By: #### M G, PRCAL, CMPX, LACTIC, CDP #### [facility] [address] [place] [address] Exchange Architect: Lew Ugalde MD Creatinine [Mass/Vol] 13.7 mg/dL Critically high 0.50-0.90 [facility] Comment on above: Result Comment: Prev ious Alert Value Reported Performed By: #### M G, PRCAL, CMPX, LACTIC, CDP #### [address] [address] Exchange Architect: Lew Ugalde MD GFR/1.73 sq M.predicted among non-blacks MDRD (S/P/Bld) [Vol rate/Area] 3 mL/min/{1.73_m2} Low >60 [facility] Comment on above: Result Comment: These results are not intended for use in patients <18 years of age. eGFR results are calculated without a race factor using the 2020 CKD-EPI equation. Careful clinical correlation is recommended, particularly when comparing to results calculated using previous equations. The CKD-EPI equation is less accurate in patients with extremes of muscle mass, extra-renal metabolism of creatine, excessive creatine ingestion, or following therapy that affects renal tubular secretion. Performed By: #### M G, PRCAL, CMPX, LACTIC, CDP #### [address] [address] Exchange Architect: Lew Ugalde MD Glucose [Mass/Vol] 72 mg/dL Low 74-99 [facility] Comment on above: Performed By: #### M G, PRCAL, CMPX, LACTIC, CDP #### [address] [address] Exchange Architect: Lew Ugalde MD Potassium [Moles/Vol] 3.1 mmol/L Low 3.7-5.3 [facility] Comment on above: Performed By: #### M G, PRCAL, CMPX, LACTIC, CDP #### [address] [address] Exchange Architect: Lew Ugalde MD Protein [Mass/Vol] 7.0 g/dL Normal 6.6-8.7 [facility] Comment on above: Performed By: #### M G, PRCAL, CMPX, LACTIC, CDP #### [address] [address] Exchange Architect: Lew Ugalde MD Sodium [Moles/Vol] 140 mmol/L Normal 136-145 [facility] Comment on above: Performed By: #### M G, PRCAL, CMPX, LACTIC, CDP #### [facility] [employer] [address] [place] [address] Exchange Architect: Lew Ugalde MD Urea nitrogen [Mass/Vol] 45 mg/dL High 8-23 [facility] Comment on above: Performed By: #### M G, PRCAL, CMPX, LACTIC, CDP #### [facility] [employer] [address] [place] [address] Exchange Architect: Lew Ugalde MD FLUID CULTUREon 03-22-2024 Bacteria identified Aer cx Nom (Body fld) GRAM STAIN WHITE BLOOD CELLS PRESENT NO ORGANISMS SEEN ON CONCENTRATED SMEAR CULTURE RESULTS NO GROWTH 5 DAYS Normal [facility] Comment on above: Performed By: #### 6 -6 ####[facility] ([id number])[address] [facility], [address], [place] [address] Fluid Cell Count and Diffon 03-22-2024 Type of Specimen .PERITONEAL DIALYSIS FLUID Normal [facility] Comment on above: Performed By: #### F LDCT #### [email or web address] [address] [place], [place] [phone] Exchange Architect: Lew Ugalde MD LIPASEon 03-22-2024 Lipase [Catalytic activity/Vol] 79 U/L High 17-40 [facility] Comment on above: Performed By: #### C BCA, PINR, 18620-2, CMP, 3040-3, 49574-8, 34247-1, 45774-4 #### [facility] ([id number]) [address] [place] [address] Lactate (P vikas) [Moles/Vol]o n 03-22-2024 LACTATE W/REFLEX 2.2 mmol/L High 0.4-2.0 [facility] Comment on above: Performed By: #### 3 3 ####[facility] ([id number])[address] [place] [address] Lactic Acidon 03-22-2024 Lactic Acid,Whole Bl 1.9 mmol/L Normal 0.7-2.1 [facility] Comment on above: Performed By: #### M G, PRCAL, CMPX, LACTIC, CDP #### [facility] [employer] [address] [place] [address] Exchange Architect: Lew Ugalde MD MAGNESIUMon 03-22-2024 Magnesium [Mass/Vol] 1.9 mg/dL Normal 1.8-2.6 [facility] Comment on above: Result Comment: SPEC IMEN HEMOLYZED, RESULTS INCREASED Performed By: #### C BCA, PINR, 63109-5, CMP, 3040-3, 88581-2, 71377-4, 23930-9 #### [facility] ([id number]) [address] [place] [address] Magnesiumon 03-22-2024 Magnesium [Mass/Vol] 1.6 mg/dL Normal 1.6-2.4 [facility] Comment on above: Performed By: #### M G, PRCAL, CMPX, LACTIC, CDP #### [email or web address] [address] [place], [place] [phone] Exchange Architect: Lew Ugalde MD Magnesium [Mass/Vol] 1.7 mg/dL Normal 1.6-2.4 [facility] Comment on above: Performed By: #### M G, PRCAL, CMPX, LACTIC, CDP #### [email or web address] [address] [place] [address] Exchange Architect: Lew Ugalde MD Natriuretic peptide B [Mass/ Vol]on 03-22-2024 Natriuretic peptide B (Bld) [Mass/Vol] 99 pg/mL Normal <100.0 [facility] Comment on above: Performed By: #### C BCA, PINR, 68701-5, CMP, 3040-3, 11117-4, 78258-8, 21696-8 ####[facility] ([id number])[address] [place] [address] PROTIME AND INRon 03-22-2024 INR Coag (PPP) [Relative time] 0.9 {INR} Normal 0.8-1.1 [facility] Comment on above: Performed By: #### C BCA, PINR, 10608-3, CMP, 3040-3, 53431-5, 12733-6, 72156-4 #### [facility] ([id number]) [address] [place] [address] PT Coag (PPP) [Time] 11.0 s Normal 9.8-13.2 [facility] Comment on above: Result Comment: NEW REFERENCE RANGE Performed By: #### C BCA, PINR, 15574-9, CMP, 3040-3, 25877-8, 32286-6, 93590-6 #### [facility] ([id number]) [address] [facility] [place] [address] Procalcitoninon 03-22-2024 Procalcitonin 0.58 ng/mL High 0.00-0.09 [facility] Comment on above: Result Comment: Suspected Sepsis: <0.50 ng/mL Low likelihood of sepsis. 0.50-2.00 ng/mL Increased likelihood of sepsis. Antibiotics encouraged. >2.00 ng/mL High risk of sepsis/shock. Antibiotics strongly encouraged. Suspected Lower Resp Tract Infections: <0.24 ng/mL Low likelihood of bacterial infection. >0.24 ng/mL Increased likelihood of bacterial infection. Antibiotics encouraged. With successful antibiotic therapy, PCT levels should decrease rapidly. (Half-life of 24 to 36 hours.) Procalcitonin values from samples collected within the first 6 hours of systemic infection may still be low. Retesting may be indicated. Values from day 1 and day 4 can be entered into the Change in Procalcitonin Calculator (www.odqbsw-myr-klgsdqahuo.Plyce) to determine the patient's Mortality Risk Prognosis In healthy neonates, plasma Procalcitonin (PCT) concentrations increase gradually after , reaching peak values at about 24 hours of age then decrease to normal values below 0.5 ng/mL by 48-72 hours of age. Performed By: #### M G, PRCAL, CMPX, LACTIC, CDP #### [facility] [employer] [facility] [place] [address] Exchange Architect: Lew Ugalde MD SARS/FLU A+B/RSV by NAAT/Mol ecularon 03-22-2024 SARS/FLU A+B/RSV by NAAT/Molecular FLU A PCR Negative (qualifier value) FLU B PCR Negative (qualifier value) RSV by PCR Negative (qualifier value) SARS CoV 2 Not detected (qualifier value) NOTE The Xpert Xpress SARS-CoV-2/Flu/RSV Plus test is a rapid, multiplexed real-time RT-PCR test intended for the simultaneous qualitative detection and differentiation of SARS-CoV-2, influenza A, influenza B and respiratory syncytial virus (RSV) viral RNA from individuals suspected of respiratory viral infection consistent with COVID-19 by their healthcare provider. This test has not been validated in asymptomatic patients. The Xpert Xpress SARS-CoV-2 test is intended for use by qualified and trained operators who are performing tests using either [employer] or V-Key systems and is limited to laboratories that meet the CLIA requirements to perform high and moderate complexity tests. The Xpert Xpress SARS-CoV-2/Flu/RSV Plus is only for use under the Food and Drug Administration's Emergency Use Authorization. Results are for the simultaneous detection and differentiation of SARS-CoV-2, influenza A, influenza B and RSV nucleic acids in clinical specimens. SARS-CoV-2, influenza A, influenza B and RSV RNA identified by this test are generally detectable in upper respiratory samples during the acute phase of infection. Positive results are indicative of the presence of the identified virus, but do not rule out bacterial infection or co-infection with other pathogens not detected by this test. Clinical correlation with patient history and other diagnostic information is necessary to determine patient infection status. The agent detected may not be the definite cause of disease. Negative results do not preclude SARS-CoV-2, influenza A, influenza B and RSV infection and should not be used as the sole basis for treatment or other patient management decisions. Negative results must be combined with clinical observations, patient history and epidemiological information. An Invalid result may occur with specimen-associated inhibition unable to be resolved with specimen repeat. Fact Sheet for Healthcare Providers: https://www.fda.gov/m edia/432732/download Fact Sheet for Patients: https://www.fda.gov/m edia/666056/download Normal [facility] Comment on above: Performed By: #### C OVFLR ####[facility] ([id number])[address] [place] [address] Stool PCR [place] 03-22-20 24 Specimen Description .FECES Normal [facility] Comment on above: Performed By: #### M G, PRCAL, CMPX, LACTIC, CDP #### [facility] [address] [place], [place] [phone] Exchange Architect: Lew Ugalde MD Performed By: #### C DP, MG, BMPX #### [facility] [address] [place], [place] [phone] Exchange Architect: Lew Ugalde MD Troponin I.cardiac High sens itivity method [Mass/Vol]on 03-22-2024 TROPONIN I, HIGH SENSITIVITY 10 ng/L Normal <16 [facility] Comment on above: Performed By: #### C BCA, PINR, 30978-9, CMP, 3040-3, 14162-4, 05000-5, 38528-4 #### [facility] ([id number]) [address] [place] [address] XR CHEST 1 VWon 03-22-2024 XR CHEST 1 VW XR CHEST 1 VW History: Shortness of breath Technique: A portable single frontal view the chest was obtained. Comparison: 06/23/2020 Findings: There is no evidence for active cardiovascular or pulmonary disease. The heart size is within normal limits and lung sykes are clear. Impression: Normal chest. Finalized by Carlene Cortes MD on 03/22/2024 3:11 AM Normal [facility] aPTT Coag (PPP) [Time]on aPTT Coag (Bld) [Time] 20 s Low 26-37 [facility] Comment on above: Result Comment: NEW REFERENCE RANGE Performed By: #### C BCA, PINR, 82317-5, CMP, 3040-3, 33775-4, 46004-1, 75197-5 #### [facility] ([id number]) [address] [place] [address] Surgical Pathology Reporton 03-11-2024 Surgical Pathology Report (NOTE) Path Number: [id number] -- Diagnosis -- A. Random colon biopsies: -No histologic abnormality. B. Sigmoid colon, polyp, biopsy: -Vegetable material. Zechariah Piedra M.D. Electronically Signed Out rdd/03/13/2024 Clinical Information Pre-Op Diagnosis: CHRONIC DIARRHEA Operative Findings: RANDOM COLON BIOPSY; SIGMOID COLON POLYP Operation Performed: COLONOSCOPY BIOPSY kb Source of Specimen A: RANDOM COLON BIOPSY B: SIGMOID COLON POLYP Gross Description A. ISA KAUR RANDOM COLON BIOPSY Received in formalin are multiple muñiz-white tissue fragments from 0.1 to 0.4 cm and are 1.4 x 0.8 x 0.2 cm in aggregate. Entirely 1cs. B. ISA KAUR, SIGMOID COLON POLYP Received in formalin is yellow-brown fragment of probable organic material, < 0.1 cm in greatest overall diameter. No tissue is seen. Entirely 1cs, may not survive processing. jj tm Carlene Chowdhury M.D./kb2:03/12/2024 Microscopic Description A-colonic mucosa shows intact architecture without active inflammation. Chronic inflammatory cells are not increased within the lamina propria and there are only rare intraepithelial leukocytes. There are no granulomas or other focal lesions. Basement membranes are not thickened and there is no lamina propria fibrosis. There is no dysplasia or malignancy. B. Microscopic examination performed. Processing Lab: [address] [address] Interpretation Performed at [address] [phone] SURGICAL PATHOLOGY CONSULTATION Patient Name: ISA KAUR [facility] Rec: [id number] [facility] ANATOMIC PATHOLOGY [address] [place] [address]. [place], [place] [address] Normal [facility] SUPERFICIAL WOUND CULTUREon 02-26-2024 Bacteria identified Aer cx Nom (Wound) GRAM STAIN 0 WHITE BLOOD CELLS/LPF 0 SQUAMOUS EPITHELIAL CELLS/LPF RARE GRAM VARIABLE RODS CULTURE RESULTS MANY PROTEUS MIRABILIS CEFAZOLIN REQUESTED PER DAVID MUÑOZ 02/29/24 [ S = SUSCEPTIBLE R = RESISTANT I = INTERMEDIATE S-DO = Susceptible-dose dependent NS = Non-suscceptible NO = No Interpretation ] Organism: PROTEUS MIRABILIS Antibiotic Interpretation OSWALD Status AMPICILLIN S <=2 F AMP/SULBACTAM S <=2/1 F CEFAZOLIN UNK <=4 F CLSI interpretive criteria for nonurinary isolates are as follows: <=2 Susceptible, 4 Intermediate, Resistant >=8. Contact Microbiology laboratory if further susceptibility testing for Cefazolin is required. CEFTRIAXONE S <=1 F CIPROFLOXACIN S <=0.25 F GENTAMICIN S <=1 F LEVOFLOXACIN S <=0.12 F PIPERACIL/TAZOBACTAM S <=4 F TOBRAMYCIN S <=1 F [ S = SUSCEPTIBLE R = RESISTANT I = INTERMEDIATE S-DO = Susceptible-dose dependent NS = Non-suscceptible NO = No Interpretation ] Organism: PROTEUS MIRABILIS Antibiotic Interpretation OSWALD Status CEFAZOLIN I F Intermediate [facility] Comment on above: Performed By: #### 6 32-0 #### [facility] ([id number]) [address] [facility], [address] 02-01-2024 [facility] Telephone (TXCTMN) ISA KAUR ([id number]) 1955 F Date Time Provider Department 02/01/24 CATIE RABAGO TXCTMN During your visit today, we recorded the following information about you: Catie Rabago 02/01/2024 4:02 PM Signed Second call regarding kidney transplant eval. Unable to reach patient by phone, left voicemail for pt to call back. Allergies As of Date: 02/01/2024 Noted Allergy Reaction BACTRIM (SULFAMETHOXAZOLE) 10/12/2010 14 - Other: See Comments Comments: Blisters on mouth CIPROFLOXACIN 10/12/2010 14 - Other: See Comments Comments: blisters SEROQUEL (QUETIAPINE FUMARATE) 10/12/2010 14 - Other: See Comments Comments: difficulty breathning Date Reviewed: 08/29/2011 Reviewed by: Bina Cooper Rn - Fully Assessed Reason for Visit: Referral - Kidney Txp [[id number]] Prescriptions as of 02/02/2024 - hydrOXYzine pamoate 25 mg ORAL capsule Take 1 capsule by mouth once daily. - hydrochlorothiazide 25 mg ORAL tablet Take 1 tablet by mouth once daily. - potassium chloride SR (K-DUR) 20 mEq ORAL tablet Take 1 tablet by mouth once daily. - clonazePAM (KLONOPIN) 0.5 mg ORAL tablet Take 1 tablet by mouth twice daily. - cyclobenzaprine 10 mg ORAL tablet Take 1 tablet by mouth once daily. - citalopram 20 mg ORAL tablet Take one(1) tablet daily. - amlodipine 10 mg ORAL tablet Take one(1) tablet daily. - lisinopril 40 mg ORAL tablet Take one(1) tablet daily. Problem List As Of Date 02/01/2024 Noted Resolved Dysmetabolic syndrome X [E88.810] 08/29/2011 Idiopathic hypersomnia without long sleep time *08/29/2011 Other dysfunctions of sleep stages or arousal f*08/29/2011 Encounter Status:Closed by CATIE RABAGO on 02/02/24 [facility] Telephone (TXCTMN) ISA KAUR ([id number]) 1955 F Date Time Provider Department 02/01/24 CATIE RABAGO TXCTMN During your visit today, we recorded the following information about you: Allergies As of Date: 02/01/2024 Noted Allergy Reaction BACTRIM (SULFAMETHOXAZOLE) 10/12/2010 14 - Other: See Comments Comments: Blisters on mouth CIPROFLOXACIN 10/12/2010 14 - Other: See Comments Comments: blisters SEROQUEL (QUETIAPINE FUMARATE) 10/12/2010 14 - Other: See Comments Comments: difficulty breathning Date Reviewed: 08/29/2011 Reviewed by: Bina Cooper Rn - Fully Assessed Reason for Visit: Referral - Kidney Txp [[id number]] Prescriptions as of 02/01/2024 - hydrOXYzine pamoate 25 mg ORAL capsule Take 1 capsule by mouth once daily. - hydrochlorothiazide 25 mg ORAL tablet Take 1 tablet by mouth once daily. - potassium chloride SR (K-DUR) 20 mEq ORAL tablet Take 1 tablet by mouth once daily. - clonazePAM (KLONOPIN) 0.5 mg ORAL tablet Take 1 tablet by mouth twice daily. - cyclobenzaprine 10 mg ORAL tablet Take 1 tablet by mouth once daily. - citalopram 20 mg ORAL tablet Take one(1) tablet daily. - amlodipine 10 mg ORAL tablet Take one(1) tablet daily. - lisinopril 40 mg ORAL tablet Take one(1) tablet daily. Problem List As Of Date 02/01/2024 Noted Resolved Dysmetabolic syndrome X [E88.810] 08/29/2011 Idiopathic hypersomnia without long sleep time *08/29/2011 Other dysfunctions of sleep stages or arousal f*08/29/2011 Encounter Status:Closed by CATIE RABAGO on 02/01/24 Normal [facility] CT ENTEROGRAPHY W CONTRASTon 01-28-2024 CT ENTEROGRAPHY W CONTRAST EXAMINATION: CT ENTEROGRAPHY 01/26/2024 4:43 pm TECHNIQUE: CT of the abdomen and pelvis was performed after the administration of intravenous contrast and negative oral contrast. Automated exposure control, iterative reconstruction, and/or weight based adjustment of the mA/kV was utilized to reduce the radiation dose to as low as reasonably achievable. COMPARISON: 10/20/2023 HISTORY: ORDERING SYSTEM PROVIDED HISTORY: Chronic diarrhea TECHNOLOGIST PROVIDED HISTORY: STAT Creatinine as needed:->No Chronic diarrhea, blood in stool, rule out IBD FINDINGS: Lower Chest: Partially imaged coronary artery calcification. Organs: Possible changes of chronic liver disease. Gallbladder surgically absent. No biliary ductal dilatation. Pancreas, adrenals, spleen are unremarkable. Moderate right renal atrophy. No hydronephrosis. Moderate calcific atherosclerosis. GI/Bowel: Bowel is nondilated without wall thickening or associated inflammatory change. Pelvis: Unremarkable. Peritoneum/Retroperit oneum: Similar small to moderate ascites with peritoneal drainage catheter in place. Trace pneumoperitoneum, likely related to the in-situ drainage catheter. Bones/Soft Tissues: Mild degenerative disc disease. Small fat containing ventral hernia. IMPRESSION: 1. No evidence of inflammatory bowel disease. 2. Similar small to moderate ascites with peritoneal drainage catheter in place. 3. Trace pneumoperitoneum, likely related to the in-situ drainage catheter. 4. Possible changes of chronic liver disease. Clinical correlation advised. Interpreted by: Cj Brock MD Signed by: Cj Brock MD 01/28/24 Final result Normal [facility] 01-26-2024 [facility] Telephone (TXCTMN) ISA KAUR ([id number]) 1955 F Date Time Provider Department 01/26/24 CATIE RABAGO TXCTMN During your visit today, we recorded the following information about you: Catie Rabago 01/26/2024 11:44 AM Signed First call regarding kidney transplant referral. Unable to reach patient by phone, left voicemail for patient to call our office to start intake process. Allergies As of Date: 01/26/2024 Noted Allergy Reaction BACTRIM (SULFAMETHOXAZOLE) 10/12/2010 14 - Other: See Comments Comments: Blisters on mouth CIPROFLOXACIN 10/12/2010 14 - Other: See Comments Comments: blisters SEROQUEL (QUETIAPINE FUMARATE) 10/12/2010 14 - Other: See Comments Comments: difficulty breathning Date Reviewed: 08/29/2011 Reviewed by: Bina Cooper Rn - Fully Assessed Reason for Visit: Referral - Kidney Txp [[id number]] Prescriptions as of 02/02/2024 - hydrOXYzine pamoate 25 mg ORAL capsule Take 1 capsule by mouth once daily. - hydrochlorothiazide 25 mg ORAL tablet Take 1 tablet by mouth once daily. - potassium chloride SR (K-DUR) 20 mEq ORAL tablet Take 1 tablet by mouth once daily. - clonazePAM (KLONOPIN) 0.5 mg ORAL tablet Take 1 tablet by mouth twice daily. - cyclobenzaprine 10 mg ORAL tablet Take 1 tablet by mouth once daily. - citalopram 20 mg ORAL tablet Take one(1) tablet daily. - amlodipine 10 mg ORAL tablet Take one(1) tablet daily. - lisinopril 40 mg ORAL tablet Take one(1) tablet daily. Problem List As Of Date 01/26/2024 Noted Resolved Dysmetabolic syndrome X [E88.810] 08/29/2011 Idiopathic hypersomnia without long sleep time *08/29/2011 Other dysfunctions of sleep stages or arousal f*08/29/2011 Encounter Status:Closed by CATIE RABAGO on 02/02/24 Normal [facility] BOY Screen w/reflexon 2023 BOY Screen Negative Normal NEG [facility] Comment on above: Performed By: #### A TRP, AMAB, CER, ANAX, FERI, FEBC, PHEP, HIVCMB #### [facility] [employer] [address] [place] [address] Exchange Architect: Lew Ugalde MD #### PT, CBC, CPBILC #### [facility] [address] [facility] [place] [address] Exchange Architect: Jose Carlos Cristina DO #### ALVFIB #### [facility] [address] [facility] [place] [address] Exchange Architect: Jose Carlos Cristina DO [facility] [address] [place], [place] [phone] Exchange Architect: Kamar Urias MD #### ALKM1, AASMF #### [facility] [address] [place], [place] [phone] Exchange Architect: Kamar Urias MD Anti-dsDNA 0.9 IU/mL Normal <10.0 [facility] Comment on above: Result Comment: Reference Range: <10.0 Negative 10.0-15.0 Equivocal >15.0 Positive Performed By: #### A TRP, AMAB, CER, ANAX, FERI, FEBC, PHEP, HIVCMB #### [facility] [address] [place] [address] Exchange Architect: Lew Ugalde MD #### PT, CBC, CPBILC #### [facility] [address] [facility] [place] [address] Exchange Architect: Jose Carlos Cristina DO #### PAZFIB #### [facility] [address] [facility] [place] [address] Exchange Architect: Jose Carlos Cristina DO [facility] [address] [place], [place] [phone] Exchange Architect: Kamar Urias MD #### GOMEZ, AASAZALEA #### [facility] [address] [place], [place] [phone] Exchange Architect: Kamar Urias MD CAR[place]TON Screen 0.2 U/mL Normal <0.7 [facility] Comment on above: Result Comment: Reference Range: <0.7 Negative 0.7-1.0 Equivocal >1.0 Positive [place] Screen includes U1RNP,RNP70,Sm,Ro(SS-A),La(SS-B),CENP,Scl-70,Raquel-1 Performed By: #### A TRP, AMAB, CER, ANAX, FERI, FEBC, PHEP, HIVCMB #### [address] [address] Exchange Architect: Lew Ugalde MD #### PT, CBC, CPBILC #### [facility] [address] [facility] [place] [address] Exchange Architect: Jose Carlos Cristina DO #### ALVFIB #### [facility] [facility] [place] [address] Exchange Architect: Jose Carlos Cristina DO [facility] [address] [place], [place] [phone] Exchange Architect: Kamar Urias MD #### GOMEZ, AASMKayden #### [facility] [address] [place] [address] Exchange Architect: Kamar Urias MD Anti-Mitochondrial Abon - Anti-Mitochondrial Ab 1.1 U/mL Normal 0.0-4.0 [facility] Comment on above: Result Comment: Reference Range: <4.0 Negative 4.0-6.0 Equivocal >6.0 Positive When results are Equivocal, it is recommended to retest after 8-12 weeks. Performed By: #### A TRP, AMAB, CER, ANAX, FERI, FEBC, PHEP, HIVCMB #### [address] [address] Exchange Architect: Lew Ugalde MD #### PT, CBC, CPBILC #### [facility] [address] [place] [address] Exchange Architect: Jose Carlos Cristina DO #### ALVFIB #### [facility] [address] [place] [address] Exchange Architect: Jose Carlos Cristina DO [facility] [address] [place], [place] [phone] Exchange Architect: Kamar Urias MD #### ALKM1, AASMF #### [facility] [address] [place] [address] Exchange Architect: Kamar Urias MD Liver Fibrosis Panelon 01-21 A2 Macroglob, Fibro 340 mg/dL High 131-293 [facility] Comment on above: Performed By: #### A TRP, AMAB, CER, ANAX, FERI, FEBC, PHEP, HIVCMB #### [address] [address] Exchange Architect: Lew Ugalde MD #### PT, CBC, CPBILC #### [facility] [address] [place] [address] Exchange Architect: Jose Carlos Cristina DO #### ALVFIB #### [facility] [address] [place] [address] Exchange Architect: Jose Carlos Cristina DO [facility] [address] [place] [address] Exchange Architect: Kamar Urias MD #### GOMEZ AASMF #### [facility] [address] [place] [address] Exchange Architect: Kamar Urias MD ALT [Catalytic activity/Vol] 23 U/L Normal 5-40 [facility] Comment on above: Performed By: #### A TRP, AMAB, CER, ANAX, FERI, FEBC, PHEP, HIVCMB #### [address] [address] Exchange Architect: Lew Ugalde MD #### PT, CBC, CPBILC #### [facility] [address] [place] [address] Exchange Architect: Jose Carlos Cristina DO #### PAZFIB #### [facility] [place] [address] Exchange Architect: Jose Carlos Cristina DO [facility] [address] [place], [place] [phone] Exchange Architect: Kamar Urias MD #### GOMEZ AASMF #### [facility] [address] [place] [address] Exchange Architect: Kamar Urias MD AST [Catalytic activity/Vol] 23 U/L Normal 9-40 [facility] Comment on above: Performed By: #### A TRP, AMAB, CER, ANAX, FERI, FEBC, PHEP, HIVCMB #### [address] [address] Exchange Architect: Lew Ugalde MD #### PT, CBC, CPBILC #### [facility] [address] [facility] [place] [address] Exchange Architect: Jose Carlos Cristina DO #### ALVFIB #### [facility] [address] [facility] [place] [address] Exchange Architect: Jose Carlos Cristina DO [facility] [address] [place], [place] [phone] Exchange Architect: Kamar Urias MD #### ALKM1, AASMF #### [facility] [address] [place] [address] Exchange Architect: Kamar Urias MD CirrhM Patient Score 0.01 Normal [facility] Comment on above: Performed By: #### A TRP, AMAB, CER, ANAX, FERI, FEBC, PHEP, HIVCMB #### [place] [place] [address] Exchange Architect: Lew Ugalde MD #### PT, CBC, CPBILC #### [facility] [address] [facility] [place] [address] Exchange Architect: Jose Carlos Cristina DO #### ALVFIB #### [facility] [address] [facility] [place] [address] Exchange Architect: Jose Carlos Cristina DO [facility] [address] [place], [place] [phone] Exchange Architect: Kamar Urias MD #### ALKM1, AASMF #### [facility] [address] [place] [address] Exchange Architect: Kamar Urias MD EER Fibro Rpt See Note Normal [facility] Comment on above: Result Comment: (NOT E) Authorized individuals can access the [facility] Enhanced Report using the following link: [email or web address] Performed By: #### A TRP, AMAB, CER, ANAX, FERI, FEBC, PHEP, HIVCMB #### [facility] [address] [place] [address] Exchange Architect: Lew Ugalde MD #### PT, CBC, CPBILC #### [facility] [address] [facility] [place] [address] Exchange Architect: Jose Carlos Cristina DO #### ALVFIB #### [facility] [address] [facility] [place] [address] Exchange Architect: Jose Carlos Cristina DO [facility] [address] [place] [address] Exchange Architect: Kamar Urias MD #### ALKM1, AASMF #### [facility] [address] [place] [address] Exchange Architect: Kamar Urias MD Fibro Interpretation See Report Normal [facility] Comment on above: Result Comment: (NOT E) MessageID [10]: FibroMeter and CirrhoMeter scores modified by the rules-based algorithm. INTERPRETIVE INFORMATION: Fibrometer Interpretation Calculations for the final report are based on accurate data for age, gender, and platelet count. If any of this information needs to be corrected, please contact [facility] Client Services to request a recalculation. Client Services may be contacted at . The [employer] FibroMeter profile serves as a surrogate marker of liver fibrosis, cirrhosis, and necro-inflammatory activity. A proprietary algorithm calculates and compares results from 7 blood markers along with age and gender to provide a patient score (from 0 to 1) and a correlated fibrosis stage (Metavir F0-F4) and activity grade (Metavir A0-A3). The fibrosis/cirrhosis score is further evaluated by a rules-based system to detect anomalous profile results which may modify the fibrosis/cirrhosis score as needed. Results should be interpreted in conjunction with the patient's clinical history; particularly when the rules-based system has modified the scores. Legend: -Metavir is a histological scoring system for determining the extent of liver fibrosis and inflammation. STAGE OF FIBROSIS (F scale) F0 = no fibrosis F1 = portal fibrosis without septa F2 = portal fibrosis with few septa F3 = numerous septa without cirrhosis F4 = cirrhosis GRADE OF NECRO-INFLAMMATORY ACTIVITY (A scale) A0 = no activity A1 = mild activity A2 = moderate activity A3 = severe activity -Platelet count result provided by client. -The Prothrombin Index test expresses the Prothrombin Time (PT) as a percentage of normal, and is used to standardize PT results across different instrument/reagent combinations. This test was developed and its performance characteristics determined by [facility]. It has not been cleared or approved by the [place] Food and Drug Administration. This test was performed in a CLIA certified laboratory and is intended for clinical purposes. Performed By: [facility] [address] [place] [address] Sde: Vikram Solis MD, PhD CLIA Number: [id number] Performed By: #### A TRP, AMAB, CER, ANAX, FERI, FEBC, PHEP, HIVCMB #### [address] [address] Exchange Architect: Lew Ugalde MD #### PT, CBC, CPBILC #### [facility] [address] [facility] [place] [address] Exchange Architect: Jose Carlos Cristina DO #### ALVFIB #### [facility] [address] [facility] [place], [place] [phone] Exchange Architect: Jose Carlos Cristina DO [address] [phone] Exchange Architect: Kamar Urias MD #### ALKM1, AASMF #### [address] [address] Exchange Architect: Kamar Urias MD Fibro Metavir Class SEE NOTE Normal [facility] Comment on above: Result Comment: (NOT E) Results for Fibrosis Metavir Classification: F2[F1-F2] INTERPRETIVE INFORMATION: Fibrosis Metavir Classification FibroMeter (fibrosis score) comments F0/F1 Equal probability between F0 and F1 F1[F1-F2] Predominance of F1, but F2 is possible F2[F1-F2] Predominance of F2, but F1 is possible F2[F1-F3] Predominance of F2, but F1 and F3 are possible F2/F3 Equal probability between F2 and F3 F3[F2-F4] Predominance of F3, but F2 and F4 are possible F3[F3-F4] Predominance of F3, but F4 is possible F4[F3-F4] Predominance of F4, but F3 is possible Performed By: #### A TRP, AMAB, CER, ANAX, FERI, FEBC, PHEP, HIVCMB #### [address] [address] Exchange Architect: Lew Ugalde MD #### PT, CBC, CPBILC #### [facility] [address] [place] [address] Exchange Architect: Jose Carlos Cristina DO #### STEPHANIE #### [facility] [facility] [place] [address] Exchange Architect: Jose Carlos Cristina DO [facility] [address] [place], [place] [phone] Exchange Architect: Kamar Urias MD #### ALKM1, AASMF #### [facility] [address] [place], [place] [phone] Exchange Architect: Kamar Urias MD FibroM Patient Score 0.46 Normal [facility] Comment on above: Performed By: #### A TRP, AMAB, CER, ANAX, FERI, FEBC, PHEP, HIVCMB #### [address] [address] Exchange Architect: Lew Ugalde MD #### PT, CBC, CPBILC #### [facility] [place] [address] Exchange Architect: Jose Carlos Cristina DO #### STEPHANIE #### [facility] [address] [facility] [place] [address] Exchange Architect: Jose Carlos Cristina DO [facility] [address] [place] [address] Exchange Architect: Kamar Urias MD #### ALKM1, AASMF #### [facility] [address] [place] [address] Exchange Architect: Kamar Urias MD GGT, Fibro 94 U/L High 7-33 [facility] Comment on above: Performed By: #### A TRP, AMAB, CER, ANAX, FERI, FEBC, PHEP, HIVCMB #### [address] [address] Exchange Architect: Lew Ugalde MD #### PT, CBC, CPBILC #### [facility] [address] [facility] [place] [address] Exchange Architect: Jose Carlos Cristina DO #### ALVFIB #### [facility] [address] [place] [address] Exchange Architect: Jose Carlos Cristina DO [facility] [address] [place] [address] Exchange Architect: Kamar Urias MD #### ALKM1, AASMF #### [facility] [address] [place] [address] Exchange Architect: Kamar Urias MD InflaM Metavir Class A1/A2 Normal [facility] Comment on above: Result Comment: (NOT E) INTERPRETIVE INFORMATION: InflaMeter Metavir Classification InflaMeter (activity score) comments A0/A1 Equal probability between A0 and A1 A1/A2 Equal probability between A1 and A2 A2/A3 Equal probability between A2 and A3 Performed By: #### A TRP, AMAB, CER, ANAX, FERI, FEBC, PHEP, HIVCMB #### [address] [address] Exchange Architect: Lew Ugalde MD #### PT, CBC, CPBILC #### [facility] [address] [place] [address] Exchange Architect: Jose Carlos Cristina DO #### ALVFIB #### [facility] [address] [place] [address] Exchange Architect: Jose Carlos Cristina DO [facility] [address] [place], [place] [phone] Exchange Architect: Kamar Urias MD #### ALKM1, AASMF #### [facility] [address] [place], [place] [phone] Exchange Architect: Kamar Urias MD InflaM Patient Score 0.31 Normal [facility] Comment on above: Performed By: #### A TRP, AMAB, CER, ANAX, FERI, FEBC, PHEP, HIVCMB #### [address] [address] Exchange Architect: Lew Ugalde MD #### PT, CBC, CPBILC #### [facility] [address] [place] [address] Exchange Architect: Jose Carlos Cristina DO #### ALVFIB #### [facility] [address] [place] [address] Exchange Architect: Jose Carlos Cristina DO [facility] [address] [place], [place] [id number] Exchange Architect: Kamar Urias MD #### ALKM1, AASMF #### [facility] [address], [place] [id number] Exchange Architect: Kamar Urias MD Prothrombin Index 102 % Normal 90-120 [facility] Comment on above: Performed By: #### A TRP, AMAB, CER, ANAX, FERI, FEBC, PHEP, HIVCMB #### [address] [place] [address] Exchange Architect: Lew Ugalde MD #### PT, CBC, CPBILC #### [facility] [place] [address] Exchange Architect: Jose Carlos Cristina DO #### ALVFIB #### [facility] [address] [facility] [place] [address] Exchange Architect: Jose Carlos Cristina DO [facility] [address] [place] [address] Exchange Architect: Kamar Urias MD #### ALKDeny, AASMF #### [facility] [address] [place] [address] Exchange Architect: Kamar Urias MD Urea nitrogen [Mass/Vol] 73 mg/dL High 7-20 [facility] Comment on above: Performed By: #### A TRP, AMAB, CER, ANAX, FERI, FEBC, PHEP, HIVCMB #### [address] [address] Exchange Architect: Lew Ugalde MD #### PT, CBC, CPBILC #### [facility] [address] [place] [address] Exchange Architect: Jose Carlos Cristina DO #### ALVFIB #### [facility] [place] [address] Exchange Architect: Jose Carlos Cristina DO [facility] [address] [place] [address] Exchange Architect: Kamar Urias MD #### ALKM1, AASMF #### [facility] [address] [place] [address] Exchange Architect: Kamar Urias MD Liver-Kid Microsome-1 Abon 0 01-22-2024 Liver-Kid Microsome-1 1.8 U Normal 0.0-24.9 [facility] Comment on above: Result Comment: (NOT E) REFERENCE INTERVAL: Liver-Kidney Microsome-1 Antibody, IgG by ADAM 0.0 - 20.0 U .............. Negative 20.1 - 24.9 U ............. Equivocal 25.0 U or Greater ......... Positive A positive result indicates the presence of IgG antibodies to recombinant human P450 2D6 and suggests the possibility of autoimmune hepatitis, type 2. A negative LKM-1 does not rule out the presence of autoimmune hepatitis, type 2. Performed By: [facility] [address] [place] [address] Sde: Vikram Solis MD, PhD CLIA Number: [id number] Performed By: #### A TRP, AMAB, CER, ANAX, FERI, FEBC, PHEP, HIVCMB #### [address] [place] [address] Exchange Architect: Lew Ugalde MD #### PT, CBC, CPBILC #### [facility] [address] [place], [place] [id number] Exchange Architect: Jose Carlos Cristina DO #### ALVFIB #### [facility] [address] [place] [address] Exchange Architect: Jose Carlos Cristina DO [facility] [address] [place] [address] Exchange Architect: Kamar Urias MD #### ALKM1, AASMF #### [facility] [address] [place] [id number] Exchange Architect: Kamar Urias MD Smooth Muscle Abon Smooth Muscle Ab 12 Units Normal 0-19 [facility] Comment on above: Result Comment: (NOT E) If F-Actin (Smooth Muscle) Antibody, IgG is negative, the Smooth Muscle Antibody titer by IFA is not performed. REFERENCE INTERVAL: F-Actin (Smooth Muscle) Antibody, IgG by ADAM 19 Units or less ....... Negative 20 - 30 Units .......... Weak Positive-Suggest repeat testing in two to three weeks with fresh specimen. 31 Units or greater..... Positive-Suggestive of autoimmune hepatitis type 1 or chronic active hepatitis. F-actin IgG antibodies have been shown to have increased sensitivity for autoimmune hepatitis (AIH) but lower specificity than smooth muscle antibodies (SMA). F-actin IgG antibodies can also be seen in SMA-negative disease controls (non-AIH), especially in patients with primary biliary cirrhosis and chronic hepatitis C infections. Some patients with AIH may be SMA-positive but negative for F-actin IgG. Consider testing for SMA by IFA if suspicion for AIH is strong. Performed By: [facility] [address] [place] [address] Sde: Vikram Solis MD, PhD CLIA Number: [id number] Performed By: #### A TRP, AMAB, CER, ANAX, FERI, FEBC, PHEP, HIVCMB #### [address] [address] Exchange Architect: Lew Ugalde MD #### PT, CBC, CPBILC #### [facility] [address] [place] [address] Exchange Architect: Jose Carlos Cristina DO #### ALVFIB #### [facility] [address] [place] [address] Exchange Architect: Jose Carlos Cristina DO [facility] [address] [place] [address] Exchange Architect: Kamar Urias MD #### ALKM1, AASMF #### [facility] [address], [place] [phone] Exchange Architect: Kamar Urias MD Eudsx-0-Atniuymxylohy 2023 Syjeo-2-Lnkqpkulhai 151 mg/dL Normal 90-200 [facility] Comment on above: Performed By: #### A TRP, AMAB, CER, ANAX, FERI, FEBC, PHEP, HIVCMB #### [address] [address] Exchange Architect: Lew Ugalde MD #### PT, CBC, CPBILC #### [facility] [address] [facility] [address] Exchange Architect: Jose Carlos Cristina DO #### STEPHANIE #### [facility] [address] [facility] [place] [address] Exchange Architect: Jose Carlos Cristina DO [facility] [address] [place] [address] Exchange Architect: Kamar Urias MD #### ABEL DYER #### [address] [address] Exchange Architect: Kamar Urias MD CBCon 01-19-2024 Erythrocyte distribution width (RBC) [Ratio] 14.8 % Normal 11.5-14.9 [facility] Comment on above: Performed By: #### A TRP, AMAB, CER, ANAX, FERI, FEBC, PHEP, HIVCMB #### [address] [address] Exchange Architect: Lew Ugalde MD #### PT, CBC, CPBILC #### [facility] [address] [facility] [address] Exchange Architect: Jose Carlos Cristina DO #### ALVFIB #### [facility] [address] [facility] [place] [address] Exchange Architect: Jose [facility] DO [facility] [address] [place] [address] Exchange Architect: Kamar Urias MD #### ALKM1, AASMF #### [facility] [address] [place] [address] Exchange Architect: Kamar Urias MD Hematocrit (Bld) [Volume fraction] 24.5 % Low 36-46 [facility] Comment on above: Performed By: #### A TRP, AMAB, CER, ANAX, FERI, FEBC, PHEP, HIVCMB #### [address] [address] Exchange Architect: Lew Ugalde MD #### PT, CBC, CPBILC #### [facility] [address] [place] [address] Exchange Architect: Jose Carlos Cristina DO #### ALVFIB #### [facility] [address] [place] [address] Exchange Architect: Jose Carlos Cristina DO [facility] [address] [place] [address] Exchange Architect: Kamar Urias MD #### GOMEZ, AASMF #### [facility] [address] [place] [address] Exchange Architect: Kamar Urias MD Hemoglobin (Bld) [Mass/Vol] 8.2 g/dL Low 12.0-16.0 [facility] Comment on above: Performed By: #### A TRP, AMAB, CER, ANAX, FERI, FEBC, PHEP, HIVCMB #### [address] [address] Exchange Architect: Lew Ugalde MD #### PT, CBC, CPBILC #### [facility] [address] [place] [address] Exchange Architect: Jose Carlos Cristina DO #### ALVFIB #### [facility] [address] [place] [address] Exchange Architect: Jose Carlos Cristina DO [facility] [address] [place], [place] [id number] Exchange Architect: Kamar Urias MD #### GOMEZ, BRITANYMF #### [facility] [address], [place] [id number] Exchange Architect: Kamar Urias MD MCH (RBC) [Entitic mass] 33.8 pg Normal 26-34 [facility] Comment on above: Performed By: #### A TRP, AMAB, CER, ANAX, FERI, FEBC, PHEP, HIVCMB #### [address] [address] Exchange Architect: Lew Ugalde MD #### PT, CBC, CPBILC #### [facility] [address] [place] [address] Exchange Architect: Jose Carlos Cristina DO #### ALVFIB #### [facility] [address] [place] [address] Exchange Architect: Jose Carlos Cristina DO [facility] [address], [place] [id number] Exchange Architect: Kamar Urias MD #### GOMEZ, AASMF #### [facility] [address], [place] [id number] Exchange Architect: Kamar Urias MD MCHC (RBC) [Mass/Vol] 33.3 g/dL Normal 31-37 [facility] Comment on above: Performed By: #### A TRP, AMAB, CER, ANAX, FERI, FEBC, PHEP, HIVCMB #### [address] [address] Exchange Architect: Lew Ugalde MD #### PT, CBC, CPBILC #### [facility] [address] [facility] [place] [address] Exchange Architect: Jose Carlos Cristina DO #### ALVFIB #### [facility] [address] [facility] [place] [address] Exchange Architect: Jose Carlos Cristina DO [facility] [address] [place] [address] Exchange Architect: Kamar Urias MD #### ABEL DYER #### [facility] [address] [place] [address] Exchange Architect: Kamar Urias MD MCV (RBC) [Entitic vol] 101.7 fL High 80-100 [facility] Comment on above: Performed By: #### A TRP, AMAB, CER, ANAX, FERI, FEBC, PHEP, HIVCMB #### [address] [address] Exchange Architect: Lew Ugalde MD #### PT, CBC, CPBILC #### [facility] [facility] [place] [address] Exchange Architect: Jose Carlos Cristina DO #### ALVFIB #### [facility] [facility] [place] [address] Exchange Architect: Jose Carlos Cristina DO [facility] [address] [place] [address] Exchange Architect: Kamar Urias MD #### GOMEZ, AASMF #### [facility] [address] [place] [address] Exchange Architect: Kamar Urias MD Platelet mean volume (Bld) [Entitic vol] 7.7 fL Normal 6.0-12.0 [facility] Comment on above: Performed By: #### A TRP, AMAB, CER, ANAX, FERI, FEBC, PHEP, HIVCMB #### [address] [address] Exchange Architect: Lew Ugalde MD #### PT, CBC, CPBILC #### [facility] [address] [facility] [place] [address] Exchange Architect: Jose Carlos Cristina DO #### YRISB #### [facility] [address] [facility] [place] [address] Exchange Architect: Jose Carlos Cristina DO [facility] [address] [place] [address] Exchange Architect: Kamar Urias MD #### GOMEZ, AASMF #### [facility] [address] [place] [address] Exchange Architect: Kamar Urias MD Platelets (Bld) [#/Vol] 289 10*3/uL Normal 150-450 [facility] Comment on above: Performed By: #### A TRP, AMAB, CER, ANAX, FERI, FEBC, PHEP, HIVCMB #### [address] [place] [address] Exchange Architect: Lew Ugalde MD #### PT, CBC, CPBILC #### [facility] [place] [address] Exchange Architect: Jose Carlos Cristina DO #### ALVFIB #### [facility] [address] [facility] [place] [address] Exchange Architect: Jose Carlos Cristina DO [facility] [address] [place] [address] Exchange Architect: Kamar Urias MD #### ALKM1, AASMF #### [facility] [address] [place] [address] Exchange Architect: Kamar Urias MD RBC (Bld) [#/Vol] 2.41 10*6/uL Low 4.0-5.2 [facility] Comment on above: Performed By: #### A TRP, AMAB, CER, ANAX, FERI, FEBC, PHEP, HIVCMB #### [address] [place] [address] Exchange Architect: Lew Ugalde MD #### PT, CBC, CPBILC #### [facility] [address] [place] [address] Exchange Architect: Jose Carlos Cristina DO #### YRISB #### [facility] [address] [facility] [place] [address] Exchange Architect: Jose Carlos Cristina DO [address] [address] Exchange Architect: Kamar Urias MD #### ABEL DYER #### [address] [address] Exchange Architect: Kamar Urias MD WBC (Bld) [#/Vol] 7.4 10*3/uL Normal 3.5-11.0 [facility] Comment on above: Performed By: #### A TRP, AMAB, CER, ANAX, FERI, FEBC, PHEP, HIVCMB #### [address] [address] Exchange Architect: Lew Ugalde MD #### PT, CBC, CPBILC #### [facility] [address] [facility] [address] Exchange Architect: Jose Carlos Cristina DO #### ALVFIB #### [facility] [place] [address] Exchange Architect: Jose Carlos Cristina DO [facility] [address] [place] [address] Exchange Architect: Kamar Urias MD #### ALKM1, AASMF #### [facility] [address] [place] [address] Exchange Architect: Kamar Urias MD Ceruloplasminon 01-19-2024 Ceruloplasmin 24 mg/dL Normal 16-45 [facility] Comment on above: Performed By: #### A TRP, AMAB, CER, ANAX, FERI, FEBC, PHEP, HIVCMB #### [address] [place] [address] Exchange Architect: Lew Ugalde MD #### PT, CBC, CPBILC #### [facility] [address] [facility] [place] [address] Exchange Architect: Jose Carlos Cristina DO #### STEPHANIE #### [facility] [address] [facility] [place] [address] Exchange Architect: Jose Carlos Cristina DO [facility] [address] [place] [address] Exchange Architect: Kamar Urias MD #### ALKM1, AASMF #### [facility] [address] [place] [address] Exchange Architect: Kamar Urias MD Comp Metab w/Bili Pron 01-18 Creatinine [Mass/Vol] 15.8 mg/dL Critically high 0.5-0.9 [facility] Comment on above: Performed By: #### A TRP, AMAB, CER, ANAX, FERI, FEBC, PHEP, HIVCMB #### [address] [place] [address] Exchange Architect: Lew Ugalde MD #### PT, CBC, CPBILC #### [facility] [address] [facility] [place] [address] Exchange Architect: Jose Carlos Cristina DO #### ALVFIB #### [facility] [address] [facility] [place] [address] Exchange Architect: Jose Carlos Cristina DO [facility] [address] [place] [address] Exchange Architect: Kamra Urias MD #### ALKM1, AASMF #### [facility] [address] [place] [address] Exchange Architect: Kamar Urias MD GFR/1.73 sq M.predicted among non-blacks MDRD (S/P/Bld) [Vol rate/Area] 2 mL/min/{1.73_m2} Low >60 [facility] Comment on above: Result Comment: These results are not intended for use in patients <18 years of age. eGFR results are calculated without a race factor using the 2020 CKD-EPI equation. Careful clinical correlation is recommended, particularly when comparing to results calculated using previous equations. The CKD-EPI equation is less accurate in patients with extremes of muscle mass, extra-renal metabolism of creatine, excessive creatine ingestion, or following therapy that affects renal tubular secretion. Performed By: #### A TRP, AMAB, CER, ANAX, FERI, FEBC, PHEP, HIVCMB #### [address] [place] [address] Exchange Architect: Lew Ugalde MD #### PT, CBC, CPBILC #### [facility] [address] [facility] [place] [address] Exchange Architect: Jose Carlos Cristina DO #### ALVFIB #### [facility] [address] [facility] [place] [address] Exchange Architect: Jose Carlos Cristina DO [facility] [address], [place] [id number] Exchange Architect: Kamar Urias MD #### ALKM1, AASMF #### [facility] [address] [place] [address] Exchange Architect: Kamar Urias MD Albumin [Mass/Vol] 2.9 g/dL Low 3.5-5.2 [facility] Comment on above: Performed By: #### A TRP, AMAB, CER, ANAX, FERI, FEBC, PHEP, HIVCMB #### [address] [address] Exchange Architect: Lew Ugalde MD #### PT, CBC, CPBILC #### [facility] [address] [place] [address] Exchange Architect: Jose Carlos Cristina DO #### ALVFIB #### [facility] [address] [place] [address] Exchange Architect: Jose Carlos Cristina DO [facility] [address] [place] [address] Exchange Architect: Kamar Urias MD #### ABEL DYER #### [facility] [address] [place] [address] Exchange Architect: Kamar Urias MD Alkaline Phos 152 U/L High 35-104 [facility] Comment on above: Performed By: #### A TRP, AMAB, CER, ANAX, FERI, FEBC, PHEP, HIVCMB #### [address] [address] Exchange Architect: Lew Ugalde MD #### PT, CBC, CPBILC #### [facility] [address] [place] [address] Exchange Architect: Jose aCrlos Cristina DO #### ALVFIB #### [facility] [address] [place] [address] Exchange Architect: Jose Carlos Cristina DO [facility] [address] [place] [address] Exchange Architect: Kamar Urias MD #### ALKM1, AASMF #### [facility] [address] [place] [address] Exchange Architect: Kamar Urias MD ALT [Catalytic activity/Vol] 19 U/L Normal 5-33 [facility] Comment on above: Performed By: #### A TRP, AMAB, CER, ANAX, FERI, FEBC, PHEP, HIVCMB #### [address] [address] Exchange Architect: Lew Ugalde MD #### PT, CBC, CPBILC #### [facility] [address] [facility] [place] [address] Exchange Architect: Jose Carlos Cristina DO #### ALVFIB #### [facility] [address] [facility] [place] [address] Exchange Architect: Jose Carlos Cristina DO [facility] [address] [place] [address] Exchange Architect: Kamar Urias MD #### ALKM1, AASMF #### [facility] [address] [place] [address] Exchange Architect: Kamar Urias MD Anion gap [Moles/Vol] 17 mmol/L Normal 9-17 [facility] Comment on above: Performed By: #### A TRP, AMAB, CER, ANAX, FERI, FEBC, PHEP, HIVCMB #### [address] [address] Exchange Architect: Lew Ugalde MD #### PT, CBC, CPBILC #### [facility] [address] [place] [address] Exchange Architect: Jose Carlos Cristina DO #### ALVFIB #### [facility] [address] [facility] [place] [address] Exchange Architect: Jose Carlos Cristina DO [facility] [address] [place] [address] Exchange Architect: Kamar Urias MD #### GOMEZ, AASMF #### [facility] [address] [place] [address] Exchange Architect: Kamar Urias MD AST [Catalytic activity/Vol] 23 U/L Normal <32 [facility] Comment on above: Performed By: #### A TRP, AMAB, CER, ANAX, FERI, FEBC, PHEP, HIVCMB #### [address] [address] Exchange Architect: Lew Ugalde MD #### PT, CBC, CPBILC #### [facility] [address] [place] [address] Exchange Architect: Jose Carlos Cristina DO #### ALVFIB #### [facility] [address] [place] [address] Exchange Architect: Jose Carlos Cristina DO [facility] [address] [place] [address] Exchange Architect: Kamar Urias MD #### GOMEZ, AASMF #### [facility] [address] [place] [address] Exchange Architect: Kamar Urias MD Bilirubin [Mass/Vol] 0.2 mg/dL Low 0.3-1.2 [facility] Comment on above: Performed By: #### A TRP, AMAB, CER, ANAX, FERI, FEBC, PHEP, HIVCMB #### [address] [address] Exchange Architect: Lew Ugalde MD #### PT, CBC, CPBILC #### [facility] [address] [place] [address] Exchange Architect: Jose Carlos Cristina DO #### ALVFIB #### [facility] [place] [address] Exchange Architect: Jose Carlos Cristina DO [address] [address] Exchange Architect: Kamar Urias MD #### ALKDeny AASMF #### [facility] [address] [place] [address] Exchange Architect: Kamar Urias MD Bilirubin, Indirect 0.1 mg/dL Normal 0.0-1.0 [facility] Comment on above: Performed By: #### A TRP, AMAB, CER, ANAX, FERI, FEBC, PHEP, HIVCMB #### [address] [address] Exchange Architect: Lew Ugalde MD #### PT, CBC, CPBILC #### [facility] [address] [place] [address] Exchange Architect: Jose Carlos Cristina DO #### ALVFIB #### [facility] [address] [place] [address] Exchange Architect: Jose Carlos Cristina DO [address] [address] Exchange Architect: Kamar Urias MD #### GOMEZ, AASMF #### [facility] [address] [place] [address] Exchange Architect: Kamar Urias MD Bilirubin.indirect [Mass/Vol] 0.1 mg/dL Normal <0.3 [facility] Comment on above: Performed By: #### A TRP, AMAB, CER, ANAX, FERI, FEBC, PHEP, HIVCMB #### [address] [address] Exchange Architect: Lew Ugalde MD #### PT, CBC, CPBILC #### [facility] [address] [facility] [place] [address] Exchange Architect: Jose Carlos Cristina DO #### PAZFIB #### [facility] [address] [facility] [place] [address] Exchange Architect: Jose Carlos Cristina DO [facility] [address] [place], [place] [id number] Exchange Architect: Kamar Urias MD #### GOMEZ, AASMF #### [facility] [address] [place], [place] [id number] Exchange Architect: Kamar Urias MD Calcium [Mass/Vol] 8.5 mg/dL Low 8.6-10.4 [facility] Comment on above: Performed By: #### A TRP, AMAB, CER, ANAX, FERI, FEBC, PHEP, HIVCMB #### [address] [address] Exchange Architect: Lew Ugalde MD #### PT, CBC, CPBILC #### [facility] [address] [facility] [place] [address] Exchange Architect: Jose Carlos Cristina DO #### ALVFIB #### [facility] [address] [facility] [place] [address] Exchange Architect: Jose Carlos Cristina DO [facility] [address] [place] [address] Exchange Architect: Kamar Urias MD #### GOEMZ, AASMF #### [facility] [address] [place] [address] Exchange Architect: Kamar Urias MD Chloride [Moles/Vol] 104 mmol/L Normal 98-107 [facility] Comment on above: Performed By: #### A TRP, AMAB, CER, ANAX, FERI, FEBC, PHEP, HIVCMB #### [address] [place] [address] Exchange Architect: Lew Ugalde MD #### PT, CBC, CPBILC #### [facility] [address] [facility] [address] Exchange Architect: Jose Carlos Cristina DO #### YRISB #### [facility] [address] [facility] [place] [address] Exchange Architect: Jose Carlos Cristina DO [facility] [address] [place] [address] Exchange Architect: Kamar Urias MD #### GOMEZ, AASMF #### [facility] [address] [place] [address] Exchange Architect: Kamar Urias MD CO2 [Moles/Vol] 23 mmol/L Normal 20-31 [facility] Comment on above: Performed By: #### A TRP, AMAB, CER, ANAX, FERI, FEBC, PHEP, HIVCMB #### [address] [address] Exchange Architect: Lew Ugalde MD #### PT, CBC, CPBILC #### [facility] [place] [address] Exchange Architect: Jose Carlos Cristina DO #### ALVFIB #### [facility] [address] [facility] [place] [address] Exchange Architect: Jose Carlos Cristina DO [facility] [address] [place] [address] Exchange Architect: Kamar Urias MD #### ALKM1, AASMF #### [facility] [address] [place] [address] Exchange Architect: Kamar Urias MD Glucose [Mass/Vol] 84 mg/dL Normal 70-99 [facility] Comment on above: Performed By: #### A TRP, AMAB, CER, ANAX, FERI, FEBC, PHEP, HIVCMB #### [address] [address] Exchange Architect: Lew Ugalde MD #### PT, CBC, CPBILC #### [facility] [place] [address] Exchange Architect: Jose Carlos Cristina DO #### ALVFIB #### [facility] [address] [facility] [place] [address] Exchange Architect: Jose Carlos Cristina DO [address] [phone] Exchange Architect: Kamar Urias MD #### ABEL DYER #### [address] [phone] Exchange Architect: Kamar Urias MD Potassium [Moles/Vol] 3.6 mmol/L Low 3.7-5.3 [facility] Comment on above: Performed By: #### A TRP, AMAB, CER, ANAX, FERI, FEBC, PHEP, HIVCMB #### [address] [address] Exchange Architect: Lew Ugalde MD #### PT, CBC, CPBILC #### [facility]0 [facility] [place] [address] Exchange Architect: Jose Carlos Cristina DO #### ALVFIB #### [facility] [place] [address] Exchange Architect: Jose Carlos Cristina DO [address] [address] Exchange Architect: Kamar Urias MD #### ALKM1, AASMF #### [facility] [address] [place] [address] Exchange Architect: Kamar Urias MD Protein [Mass/Vol] 6.2 g/dL Low 6.4-8.3 [facility] Comment on above: Performed By: #### A TRP, AMAB, CER, ANAX, FERI, FEBC, PHEP, HIVCMB #### [address] [address] Exchange Architect: Lew Ugalde MD #### PT, CBC, CPBILC #### [facility] [address] [place] [address] Exchange Architect: Jose Carlos Cristina DO #### PAZFIB #### [facility] [place] [address] Exchange Architect: Jose Carlos Cristina DO [facility] [address] [place] [address] Exchange Architect: Kamar Urias MD #### ALKM1, AASMF #### [facility] [address] [place] [address] Exchange Architect: Kamar Urias MD Sodium [Moles/Vol] 144 mmol/L Normal 135-144 [facility] Comment on above: Performed By: #### A TRP, AMAB, CER, ANAX, FERI, FEBC, PHEP, HIVCMB #### [address] [address] Exchange Architect: Lew Ugalde MD #### PT, CBC, CPBILC #### [facility] [place] [address] Exchange Architect: Jose Carlos Cristina DO #### ALVFIB #### [facility] [address] [place] [address] Exchange Architect: Jose Carlos Cristina DO [facility] [address] [place] [address] Exchange Architect: Kamar Urias MD #### ALKM1, AASMF #### [facility] [address] [place] [address] Exchange Architect: Kamar Urias MD Urea nitrogen [Mass/Vol] 73 mg/dL High 8-23 [facility] Comment on above: Performed By: #### A TRP, AMAB, CER, ANAX, FERI, FEBC, PHEP, HIVCMB #### [facility] [address] [place] [address] Exchange Architect: Lew Ugalde MD #### PT, CBC, CPBILC #### [facility] [address] [place] [address] Exchange Architect: Jose Carlos Cristina DO #### ALVFIB #### [facility] [address] [place] [address] Exchange Architect: Jose Carlos Cristina DO [facility] [address] [place] [address] Exchange Architect: Kamar Urias MD #### ALKM1, AASMF #### [facility] [address] [place], [place] [phone] Exchange Architect: Kamar Urias MD Ferritinon 01-19-2024 Ferritin [Mass/Vol] 1222 ng/mL High 13-150 [facility] Comment on above: Result Comment: No r eference range established for this age/gender. Performed By: #### A TRP, AMAB, CER, ANAX, FERI, FEBC, PHEP, HIVCMB #### [facility] [address] [place] [address] Exchange Architect: Lew Ugalde MD #### PT, CBC, CPBILC #### [facility] [address] [facility] [place] [address] Exchange Architect: Jose Carlos Cristina DO #### ALVFIB #### [facility] [address] [facility] [place] [address] Exchange Architect: Jose Carlos Cristina DO [facility] [address] [place] [address] Exchange Architect: Kamar Urias MD #### GOMEZ AASMF #### [facility] [address] [place] [address] Exchange Architect: Kamar Urias MD HIV Ag/Abon 01-19-2024 HIV Ag/Ab Non-Reactive Normal NR [facility] Comment on above: Performed By: #### A TRP, AMAB, CER, ANAX, FERI, FEBC, PHEP, HIVCMB #### [address] [address] Exchange Architect: Lew Ugalde MD #### PT, CBC, CPBILC #### [facility] [address] [facility] [place] [address] Exchange Architect: Jose Carlos Cristina DO #### ALVFIB #### [facility] [address] [facility] [place] [address] Exchange Architect: Jose Carlos Cristina DO [facility] [address] [place] [address] Exchange Architect: Kamar Urias MD #### GOMEZ AASMF #### [facility] [address] [place] [address] Exchange Architect: Kamar Urias MD Hepatitis Acute Anaid 01-18 Hep A Ab,IgM Non-Reactive Normal NR [facility] Comment on above: Performed By: #### A TRP, AMAB, CER, ANAX, FERI, FEBC, PHEP, HIVCMB #### [address] [place] [address] Exchange Architect: Lew Ugalde MD #### PT, CBC, CPBILC #### [facility] [address] [place] [address] Exchange Architect: Jose Carlos Cristina DO #### ALVFIB #### [facility] [address] [place] [address] Exchange Architect: Jose Carlos Cristina DO [facility] [address] [place] [address] Exchange Architect: Kamar Urias MD #### GOMEZ, AASMF #### [facility] [address] [place] [address] Exchange Architect: Kamar Urias MD Hep B Core Ab,IgM Non-Reactive Normal NR [facility] Comment on above: Performed By: #### A TRP, AMAB, CER, ANAX, FERI, FEBC, PHEP, HIVCMB #### [address] [address] Exchange Architect: Lew Ugalde MD #### PT, CBC, CPBILC #### [facility] [address] [place] [address] Exchange Architect: Jose Carlos Cristina DO #### ALVFIB #### [facility] [address] [place] [address] Exchange Architect: Jose Carlos Cristina DO [facility] [address] [place] [address] Exchange Architect: Kamar Urias MD #### ALKM1, AASMF #### [facility] [address] [place] [address] Exchange Architect: Kamar Urias MD Hep B Surf Ag Non-Reactive Normal NR [facility] Comment on above: Performed By: #### A TRP, AMAB, CER, ANAX, FERI, FEBC, PHEP, HIVCMB #### [address] [place] [address] Exchange Architect: Lew Ugalde MD #### PT, CBC, CPBILC #### [facility] [address] [facility] [place] [address] Exchange Architect: Jose Carlos Cristina DO #### STEPHANIE #### [facility] [address] [facility] [place] [address] Exchange Architect: Jose Carlos Cristina DO [facility] [address] [place], [place] [phone] Exchange Architect: Kamar Urias MD #### ALKM1, AASMF #### [facility] [address] [place], [place] [phone] Exchange Architect: Kamar Urias MD Hep C Ab Reactive Abnormal NR [facility] Comment on above: Result Comment: The hepatitis C procedure used in our laboratory is a Chemiluminescent test specific for three recombinant HCV antigens. A negative anti-HCV result indicates that the antibodies to hepatitis C virus are not present at this time. Individuals with reactive anti-HCV should be considered infected and infectious until proven otherwise. Confirmation of all equivocal or reactive results is recommended by ordering HCV RNA by PCR. Results reported to the appropriate Health Department Performed By: #### A TRP, AMAB, CER, ANAX, FERI, FEBC, PHEP, HIVCMB #### [address] [address] Exchange Architect: Lew Ugalde MD #### PT, CBC, CPBILC #### [facility] [address] [facility] [place] [address] Exchange Architect: Jose Carlos Cristina DO #### PAZFIGarcia #### [facility] [address] [facility] [place] [address] Exchange Architect: Jose Carlos Cristina DO [facility] [address] [place] [address] Exchange Architect: Kamar Urias MD #### ABEL DYER #### [facility] [address] [place] [address] Exchange Architect: Kamar Urias MD Iron Binding Cap.on 01-19-20 24 % Fe Saturation 91 % High 20-55 [facility] Comment on above: Performed By: #### A TRP, AMAB, CER, ANAX, FERI, FEBC, PHEP, HIVCMB #### [address] [address] Exchange Architect: Lew Ugalde MD #### PT, CBC, CPBILC #### [facility] [address] [place] [address] Exchange Architect: Jose Carlos Cristina DO #### ALVFIB #### [facility] [address] [place] [address] Exchange Architect: Jose Carlos Cristina DO [facility] [address] [place] [address] Exchange Architect: Kamar Urias MD #### BRITANY DYERMF #### [facility] [address] [place] [address] Exchange Architect: Kamar Urias MD Iron [Mass/Vol] 203 ug/dL High 37-145 [facility] Comment on above: Performed By: #### A TRP, AMAB, CER, ANAX, FERI, FEBC, PHEP, HIVCMB #### [address] [address] Exchange Architect: Lew Ugalde MD #### PT, CBC, CPBILC #### [facility] [address] [place] [address] Exchange Architect: Jose Carlos Cristina DO #### ALVFIB #### [facility] [address] [place] [address] Exchange Architect: Jose Carlos Cristina DO [facility] [address] [place] [address] Exchange Architect: Kamar Urias MD #### BRITANY DYERMF #### [facility] [address] [place] [address] Exchange Architect: Kamar Urias MD Total Fe Binding Cap 223 ug/dL Low 250-450 [facility] Comment on above: Performed By: #### A TRP, AMAB, CER, ANAX, FERI, FEBC, PHEP, HIVCMB #### [address] [address] Exchange Architect: Lew Ugalde MD #### PT, CBC, CPBILC #### [facility] [address] [place] [address] Exchange Architect: Jose Carlos Cristina DO #### ALVFIB #### [facility] [address] [place] [address] Exchange Architect: Jose Carlos Cristina DO [facility] [address] [place] [address] Exchange Architect: Kamar Urias MD #### GOMEZ AASMF #### [facility] [address] [place] [address] Exchange Architect: Kamar Urias MD Unbound Fe Bind Cap 20 ug/dL Low 112-347 [facility] Comment on above: Performed By: #### A TRP, AMAB, CER, ANAX, FERI, FEBC, PHEP, HIVCMB #### [address] [address] Exchange Architect: Lew Ugalde MD #### PT, CBC, CPBILC #### [facility] [address] [place] [address] Exchange Architect: Jose Carlos Cristina DO #### ALVFIB #### [facility] [address] [facility] [address] Exchange Architect: Jose Carlos Cristina DO [facility] [address] [place], [place] [phone] Exchange Architect: Kamar Urias MD #### ALKM1, AASMF #### [facility] [address] [place] [address] Exchange Architect: Kamar Urias MD Liver Fibrosis Panelon 01-18 Platelet Cnt,Fibro 289 Normal [facility] Comment on above: Performed By: #### A TRP, AMAB, CER, ANAX, FERI, FEBC, PHEP, HIVCMB #### [address] [address] Exchange Architect: Lew Ugalde MD #### PT, CBC, CPBILC #### [facility] [address] [facility] [place] [address] Exchange Architect: Jose Carlos Cristina DO #### ALVFIB #### [facility] [address] [facility] [place] [address] Exchange Architect: Jose Carlos Cristina DO [facility] [address] [place], [place] [id number] Exchange Architect: Kamar Urias MD #### ALKM1, AASMF #### [facility] [address] [place] [address] Exchange Architect: Kamar Urias MD No Panel Informationon 01-18 1. Hepatic cirrhosis morphology. No focal lesion. Small ascites. 2. Liver stiffness of 10.05 kPa, correlating with a Metavir score of F3 (severe fibrosis, 9.40-11.9 kPa). [facility] RIS CONSOLIDATED EXAMINATION: LIVER ELASTOGRAPHY ULTRASOUND; ULTRASOUND OF THE LIVER 01/19/2024 10:10 am TECHNIQUE: Liver stiffness measurements were obtained on a [employer] LOGIQ E10 unit with a C1-6-D transducer. 12 valid measurements were obtained using a 2D shear wave elastography method. COMPARISON: None. HISTORY: ORDERING SYSTEM PROVIDED HISTORY: Chronic hepatitis C without hepatic coma (HCC) TECHNOLOGIST PROVIDED HISTORY: This procedure can be scheduled via [employer]. Access your [employer] account by visiting [employer]. FINDINGS: LIVER: Hepatic cirrhosis morphology without focal lesion. Hepatopetal flow portal vein. Liver 12.7 cm in length. Median stiffness: 10.05 kPa IQR:median ratio (IQR/M, results unreliable if >0.30): 0.21 BILIARY SYSTEM: Cholecystectomy common bile duct is within normal limits measuring 4.5 mm. OTHER: Small ascites. [facility] Vern Fuentes, DO - 01/19/2024 EXAMINATION: LIVER ELASTOGRAPHY ULTRASOUND; ULTRASOUND OF THE LIVER 01/19/2024 10:10 am TECHNIQUE: Liver stiffness measurements were obtained on a [employer] LOG[employer] E10 unit with a C1-6-D transducer. 12 valid measurements were obtained using a 2D shear wave elastography method. COMPARISON: None. HISTORY: ORDERING SYSTEM PROVIDED HISTORY: Chronic hepatitis C without hepatic coma (HCC) TECHNOLOGIST PROVIDED HISTORY: This procedure can be scheduled via [employer]. Access your [employer] account by visiting [employer]. FINDINGS: LIVER: Hepatic cirrhosis morphology without focal lesion. Hepatopetal flow portal vein. Liver 12.7 cm in length. Median stiffness: 10.05 kPa IQR:median ratio (IQR/M, results unreliable if >0.30): 0.21 BILIARY SYSTEM: Cholecystectomy common bile duct is within normal limits measuring 4.5 mm. OTHER: Small ascites. IMPRESSION: 1. Hepatic cirrhosis morphology. No focal lesion. Small ascites. 2. Liver stiffness of 10.05 kPa, correlating with a Metavir score of F3 (severe fibrosis, 9.40-11.9 kPa). [facility] Radiology Study observation (narrative) [facility] No Panel InformationOrdered By: Vern Rodriguez on 01-19-2024 [facility] Work Phone: PTon 01-19-2024 INR Coag (PPP) [Relative time] 0.9 {INR} Normal [facility] Comment on above: Result Comment: Therapeutic Range: Moderate Anticoagulant Intensity: INR = 2.0-3.0 High Anticoagulant Intensity: INR = 2.5-3.5 Performed By: #### A TRP, AMAB, CER, ANAX, FERI, FEBC, PHEP, HIVCMB #### [address] [address] Exchange Architect: Lew Ugalde MD #### PT, CBC, CPBILC #### [facility] [place] [address] Exchange Architect: Jose Carlos Cristina DO #### ALVFIGarcia #### [facility] [address] [place] [address] Exchange Architect: Jose Carlos Cristina DO [facility] [address] [place], [place] [phone] Exchange Architect: Kamar Urias MD #### ALKM1, AAS #### [facility] [address] [place], [place] [id number] Exchange Architect: Kamar Urias MD PT Coag (PPP) [Time] 12.3 s Normal 11.8-14.6 [facility] Comment on above: Performed By: #### A TRP, AMAB, CER, ANAX, FERI, FEBC, PHEP, HIVCMB #### [address] [address] Exchange Architect: Lew Ugalde MD #### PT, CBC, CPBILC #### [facility] [place] [address] Exchange Architect: Jose Carlos Cristina DO #### ALVFIB #### [facility] [place] [address] Exchange Architect: Jose Carlos Cristina DO [facility] [address] [place] [address] Exchange Architect: Kamar Urias MD #### ALKM1, AAS #### [facility] [address] [place] [address] Exchange Architect: Kamar Urias MD LIVERon 01-19-2024 US LIVER EXAMINATION: LIVER ELASTOGRAPHY ULTRASOUND; ULTRASOUND OF THE LIVER 01/19/2024 10:10 am TECHNIQUE: Liver stiffness measurements were obtained on a [employer] E10 unit with a C1-6-D transducer. 12 valid measurements were obtained using a 2D shear wave elastography method. COMPARISON: None. HISTORY: ORDERING SYSTEM PROVIDED HISTORY: Chronic hepatitis C without hepatic coma (HCC) TECHNOLOGIST PROVIDED HISTORY: This procedure can be scheduled via [employer]. Access your [employer] account by visiting [employer]. FINDINGS: LIVER: Hepatic cirrhosis morphology without focal lesion. Hepatopetal flow portal vein. Liver 12.7 cm in length. Median stiffness: 10.05 kPa IQR:median ratio (IQR/M, results unreliable if >0.30): 0.21 BILIARY SYSTEM: Cholecystectomy common bile duct is within normal limits measuring 4.5 mm. OTHER: Small ascites. IMPRESSION: 1. Hepatic cirrhosis morphology. No focal lesion. Small ascites. 2. Liver stiffness of 10.05 kPa, correlating with a Metavir score of F3 (severe fibrosis, 9.40-11.9 kPa). Interpreted by: Vern Rodriguez DO Signed by: Vern Rodriguez DO 01/19/24 Final result Normal [facility] US ORGAN ELASTOGRAPHYon - US ORGAN ELASTOGRAPHY EXAMINATION: LIVER ELASTOGRAPHY ULTRASOUND; ULTRASOUND OF THE LIVER 01/19/2024 10:10 am TECHNIQUE: Liver stiffness measurements were obtained on a [employer]IQ E10 unit with a C1-6-D transducer. 12 valid measurements were obtained using a 2D shear wave elastography method. COMPARISON: None. HISTORY: ORDERING SYSTEM PROVIDED HISTORY: Chronic hepatitis C without hepatic coma (HCC) TECHNOLOGIST PROVIDED HISTORY: This procedure can be scheduled via [employer]. Access your [employer] account by visiting [employer]. FINDINGS: LIVER: Hepatic cirrhosis morphology without focal lesion. Hepatopetal flow portal vein. Liver 12.7 cm in length. Median stiffness: 10.05 kPa IQR:median ratio (IQR/M, results unreliable if >0.30): 0.21 BILIARY SYSTEM: Cholecystectomy common bile duct is within normal limits measuring 4.5 mm. OTHER: Small ascites. IMPRESSION: 1. Hepatic cirrhosis morphology. No focal lesion. Small ascites. 2. Liver stiffness of 10.05 kPa, correlating with a Metavir score of F3 (severe fibrosis, 9.40-11.9 kPa). Interpreted by: Vern Rodriguez DO Signed by: Vern Rodriguez DO 01/19/24 Final result Normal [facility] Cult,Fluidon 10-27-2023 Cult,Fluid Specimen Description .PERITONEAL DIALYSIS FLUID Direct Exam RARE NEUTROPHILS NO BACTERIA SEEN Gram stain made from cytocentrifuged specimen. Organisms and cells will be concentrated. Culture NO GROWTH 6 DAYS Report Status FINAL 10/27/2023 Normal [facility] Comment on above: Performed By: #### M G, PRCAL, CMPX, LACTIC, CDP #### [email or web address] [address] [place] [address] Exchange Architect: Lew Ugalde MD Cult,Bloodon 10-26-2023 Cult,Blood Specimen Description .BLOOD Special Requests R HAND 0.5ML Culture NO GROWTH 5 DAYS Report Status FINAL 10/25/2023 Normal [facility] Comment on above: Performed By: #### M G, PRCAL, CMPX, LACTIC, CDP #### [email or web address] [address] [place] [address] Exchange Architect: Lew Ugalde MD Cult,Blood Specimen Description .BLOOD Special Requests L HAND 0.5ML Culture NO GROWTH 5 DAYS Report Status FINAL 10/25/2023 Normal [facility] Comment on above: Performed By: #### C DP, MG, BMPX #### [facility] [employer] [address] [place] [address] Exchange Architect: Lew Ugalde MD Basic Metab w/rfx MGon 10-24 Creatinine [Mass/Vol] 12.6 mg/dL Critically high 0.5-0.9 [facility] Comment on above: Result Comment: Prev ious Alert Value Reported Performed By: #### C DP, MG, BMPX #### [address] [address] Exchange Architect: Lew Ugalde MD GFR/1.73 sq M.predicted among non-blacks MDRD (S/P/Bld) [Vol rate/Area] 3 mL/min/{1.73_m2} Low >60 [facility] Comment on above: Result Comment: These results are not intended for use in patients <18 years of age. eGFR results are calculated without a race factor using the 2020 CKD-EPI equation. Careful clinical correlation is recommended, particularly when comparing to results calculated using previous equations. The CKD-EPI equation is less accurate in patients with extremes of muscle mass, extra-renal metabolism of creatine, excessive creatine ingestion, or following therapy that affects renal tubular secretion. Performed By: #### C DP, MG, BMPX #### [place] [address] Exchange Architect: Lew Ugalde MD Anion gap [Moles/Vol] 12 mmol/L Normal 9-17 [facility] Comment on above: Performed By: #### C DP, MG, BMPX #### [facility] [employer] [address] [place] [address] Exchange Architect: Lew Ugalde MD Calcium [Mass/Vol] 8.3 mg/dL Low 8.6-10.4 [facility] Comment on above: Performed By: #### C DP, MG, BMPX #### [facility] [employer] [address] [place] [address] Exchange Architect: Lew Ugalde MD Chloride [Moles/Vol] 103 mmol/L Normal 98-107 [facility] Comment on above: Performed By: #### C DP, MG, BMPX #### [facility] [employer] [address] [place] [address] Exchange Architect: Lew Ugalde MD CO2 [Moles/Vol] 25 mmol/L Normal 20-31 [facility] Comment on above: Performed By: #### C DP, MG, BMPX #### [address] [address] Exchange Architect: Lew Ugalde MD Glucose [Mass/Vol] 107 mg/dL High 70-99 [facility] Comment on above: Performed By: #### C DP, MG, BMPX #### [place] [address] Exchange Architect: Lew Ugalde MD Potassium [Moles/Vol] 3.9 mmol/L Normal 3.7-5.3 [facility] Comment on above: Performed By: #### C DP, MG, BMPX #### [address] [address] Exchange Architect: Lew Ugalde MD Sodium [Moles/Vol] 140 mmol/L Normal 135-144 [facility] Comment on above: Performed By: #### C DP, MG, BMPX #### [place] [address] Exchange Architect: Lew Ugalde MD Urea nitrogen [Mass/Vol] 38 mg/dL High 8-23 [facility] Comment on above: Performed By: #### C DP, MG, BMPX #### [place] [address] Exchange Architect: Lew Ugalde MD CBC with Diffon 10-24-2023 Abs. Basophil 0.03 k/uL Normal 0.00-0.20 [facility] Comment on above: Performed By: #### C DP, MG, BMPX #### [facility] [employer] [address] [place] [address] Exchange Architect: Lew Ugalde MD Abs.Imm.Granulocyte 0.04 k/uL Normal 0.00-0.30 [facility] Comment on above: Performed By: #### C DP, MG, BMPX #### [place] [address] Exchange Architect: Lew Ugalde MD Abs.Neutrophil (Seg) 7.14 k/uL Normal 1.50-8.10 [facility] Comment on above: Performed By: #### C DP, MG, BMPX #### [place] [address] Exchange Architect: Lew Ugalde MD Basophils/100 WBC (Bld) 0 % Normal 0-2 [facility] Comment on above: Performed By: #### C DP, MG, BMPX #### [place] [address] Exchange Architect: Lew Ugalde MD Eosinophils (Bld) [#/Vol] 0.13 10*3/uL Normal 0.00-0.44 [facility] Comment on above: Performed By: #### C DP, MG, BMPX #### [place] [address] Exchange Architect: Lew Ugalde MD Eosinophils/100 WBC (Bld) 1 % Normal 1-4 [facility] Comment on above: Performed By: #### C DP, MG, BMPX #### [place] [address] Exchange Architect: Lew Ugalde MD Erythrocyte distribution width (RBC) [Ratio] 14.4 % Normal 11.8-14.4 [facility] Comment on above: Performed By: #### C DP, MG, BMPX #### [place] [address] Exchange Architect: Lew Ugalde MD Hematocrit (Bld) [Volume fraction] 27.6 % Low 36.3-47.1 [facility] Comment on above: Performed By: #### C DP, MG, BMPX #### [place] [address] Exchange Architect: Lew Ugalde MD Hemoglobin (Bld) [Mass/Vol] 9.1 g/dL Low 11.9-15.1 [facility] Comment on above: Performed By: #### C DP, MG, BMPX #### [place] [address] Exchange Architect: Lew Ugalde MD Immature granulocytes/100 WBC (Bld) 0 % Normal 0 [facility] Comment on above: Performed By: #### C DP, MG, BMPX #### [place] [address] Exchange Architect: Lew Ugalde MD Lymphocytes (Bld) [#/Vol] 1.33 10*3/uL Normal 1.10-3.70 [facility] Comment on above: Performed By: #### C DP, MG, BMPX #### [place] [address] Exchange Architect: Lew Ugalde MD Lymphocytes/100 WBC (Bld) 14 % Low 24-43 [facility] Comment on above: Performed By: #### C DP, MG, BMPX #### [place] [address] Exchange Architect: Lew Ugalde MD MCH (RBC) [Entitic mass] 32.9 pg Normal 25.2-33.5 [facility] Comment on above: Performed By: #### C DP, MG, BMPX #### [place] [address] Exchange Architect: Lew Ugalde MD MCHC (RBC) [Mass/Vol] 33.0 g/dL Normal 28.4-34.8 [facility] Comment on above: Performed By: #### C DP, MG, BMPX #### [address] [address] Exchange Architect: Lew Ugalde MD MCV (RBC) [Entitic vol] 99.6 fL Normal 82.6-102.9 M [facility] Comment on above: Performed By: #### C DP, MG, BMPX #### [place] [address] Exchange Architect: Lew Ugalde MD Monocytes (Bld) [#/Vol] 0.74 10*3/uL Normal 0.10-1.20 [facility] Comment on above: Performed By: #### C DP, MG, BMPX #### [address] [address] Exchange Architect: Lew Ugalde MD Monocytes/100 WBC (Bld) 8 % Normal 3-12 M [facility] Comment on above: Performed By: #### C DP, MG, BMPX #### [place] [address] Exchange Architect: Lew Ugalde MD Neutrophil (Seg) 77 % High 36-65 [facility] Comment on above: Performed By: #### C DP, MG, BMPX #### [address] [address] Exchange Architect: Lew Ugalde MD NRBC Automated 0.0 per 100 WBC Normal 0.0 [facility] Comment on above: Performed By: #### C DP, MG, BMPX #### [place] [address] Exchange Architect: Lew Ugalde MD Platelet mean volume (Bld) [Entitic vol] 9.7 fL Normal 8.1-13.5 [facility] Comment on above: Performed By: #### C DP, MG, BMPX #### [address] [place] [address] Exchange Architect: Lew Ugalde MD Platelets (Bld) [#/Vol] 208 10*3/uL Normal 138-453 [facility] Comment on above: Performed By: #### C DP, MG, BMPX #### [facility] [employer] [address] [place] [address] Exchange Architect: Lew Ugalde MD RBC (Bld) [#/Vol] 2.77 10*6/uL Low 3.95-5.11 [facility] Comment on above: Performed By: #### C DP, MG, BMPX #### [facility] [employer] [address] [place] [phone] Exchange Architect: Lew Ugalde MD WBC (Bld) [#/Vol] 9.4 10*3/uL Normal 3.5-11.3 [facility] Comment on above: Performed By: #### C DP, MG, BMPX #### [facility] [employer] [address] [place] [address] Exchange Architect: Lew Ugalde MD Calprotectin, Fecalon 2022 Calprotectin, Fecal 81 ug/g High <=49 [facility] Comment on above: Result Comment: (NOT E) REFERENCE INTERVAL: Calprotectin, Fecal by Immunoassay Less than 50 ug/g.........Normal 50-120 ug/g...............Borderline elevated, test should be re-evaluated in 4-6 weeks. 121 ug/g or greater.......Elevated Performed By: [employer] [address] [place] [id number] Sde: Vikram Solis MD, PhD CLIA Number: [id number] Performed By: #### F LDCT #### [address] [address] Exchange Architect: Lew Ugalde MD Cult,Urineon 10-24-2023 Cult,Urine Specimen Description .URINE Culture ENTEROCOCCUS FAECALIS >100,000 CFU/ML Organism is nonviable for susceptibility testing Report Status FINAL 10/24/2023 Normal [facility] Comment on above: Performed By: #### M G, PRCAL, CMPX, LACTIC, CDP #### [email or web address] [facility] [place] [address] Exchange Architect: Lew Ugalde MD HCV RNA,Quant,PCRon 10-24-20 23 HCV Quant [id number] IU/mL Normal [facility] Comment on above: Performed By: #### M G, PRCAL, CMPX, LACTIC, CDP #### [facility] [address] [place] [address] Exchange Architect: Lew Ugalde MD HCV RNA,Quant Detected Abnormal NOTDET [facility] Comment on above: Result Comment: INTERPRETIVE INFORMATION: HCV by Quantitative NAAT, Serum or Plasma Normal Range for this assay is Not Detected . The quantitative range of this assay is 15-30,000,000 IU/mL (1.17-7.48 log IU/mL). Lower limit of quantitation(LLoQ) is 15 IU/mL(1.17 log IU/mL). LLoQ values do not apply to diluted specimens. A result of Not Detected does not rule out the presence of inhibitors in the patient specimen or hepatitis C virus RNA concentrations below the level of detection of the test. Care should be taken when interpreting any single viral load determination. This test should not be used for blood donor screening, associated re-entry protocols, or for screening Human Cell, Tissues and Cellular Tissue-Based Products (HCT/P). Performed By: #### M G, PRCAL, CMPX, LACTIC, CDP #### [email or web address] [address] [place] [address] Exchange Architect: Lew Ugalde MD HCV,RNA Log 6.98 Log IU/mL [facility] Comment on above: Performed By: #### M G, PRCAL, CMPX, LACTIC, CDP #### [email or web address] [address] [place] [address] [phone] Exchange Architect: Lew Ugalde MD Hgb/Hcton 0 Hematocrit (Bld) [Volume fraction] 32.1 % Low 36.3-47.1 [facility] Comment on above: Performed By: #### C DP, MG, BMPX #### [email or web address] [facility] [place], [place] [phone] Exchange Architect: Lew Ugalde MD Hemoglobin (Bld) [Mass/Vol] 10.2 g/dL Low 11.9-15.1 [facility] Comment on above: Performed By: #### C DP, MG, BMPX #### [facility] [address] [place] [address] [phone] Exchange Architect: Lew Ugalde MD Basic Metab w/rfx MGon 10-234 Creatinine [Mass/Vol] 11.7 mg/dL Critically high 0.5-0.9 [facility] Comment on above: Result Comment: Prev ious Alert Value Reported Performed By: #### C DP, MG, BMPX #### [facility] [employer] [address] [place] [address] [phone] Exchange Architect: Lew Ugalde MD GFR/1.73 sq M.predicted among non-blacks MDRD (S/P/Bld) [Vol rate/Area] 3 mL/min/{1.73_m2} Low >60 [facility] Comment on above: Result Comment: These results are not intended for use in patients <18 years of age. eGFR results are calculated without a race factor using the 2020 CKD-EPI equation. Careful clinical correlation is recommended, particularly when comparing to results calculated using previous equations. The CKD-EPI equation is less accurate in patients with extremes of muscle mass, extra-renal metabolism of creatine, excessive creatine ingestion, or following therapy that affects renal tubular secretion. Performed By: #### C DP, MG, BMPX #### [facility] [address] [place] [address] [phone] Exchange Architect: Lew Ugalde MD Potassium [Moles/Vol] 3.3 mmol/L Low 3.7-5.3 [facility] Comment on above: Performed By: #### C DP, MG, BMPX #### [facility] [employer] [address] [place] [address] Exchange Architect: Lew Ugalde MD Anion gap [Moles/Vol] 13 mmol/L Normal 9-17 [facility] Comment on above: Performed By: #### C DP, MG, BMPX #### [facility] [employer] [address] [place] [address] Exchange Architect: Lew Ugalde MD Calcium [Mass/Vol] 8.5 mg/dL Low 8.6-10.4 [facility] Comment on above: Performed By: #### C DP, MG, BMPX #### [address] [address] Exchange Architect: Lew Ugalde MD Chloride [Moles/Vol] 101 mmol/L Normal 98-107 [facility] Comment on above: Performed By: #### C DP, MG, BMPX #### [address] [address] Exchange Architect: Lew Ugalde MD CO2 [Moles/Vol] 24 mmol/L Normal 20-31 [facility] Comment on above: Performed By: #### C DP, MG, BMPX #### [facility] [employer] [address] [place] [address] Exchange Architect: Lew Ugalde MD Glucose [Mass/Vol] 97 mg/dL Normal 70-99 [facility] Comment on above: Performed By: #### C DP, MG, BMPX #### [facility] [employer] [address] [place] [address] Exchange Architect: Lew Ugalde MD Sodium [Moles/Vol] 138 mmol/L Normal 135-144 [facility] Comment on above: Performed By: #### C DP, MG, BMPX #### [place] [address] Exchange Architect: Lew Ugalde MD Urea nitrogen [Mass/Vol] 38 mg/dL High 8-23 [facility] Comment on above: Performed By: #### C DP, MG, BMPX #### [place] [address] Exchange Architect: Lew Ugalde MD CBC with Diffon 10-23-2023 Abs. Basophil 0.04 k/uL Normal 0.00-0.20 [facility] Comment on above: Performed By: #### C DP, MG, BMPX #### [place] [address] Exchange Architect: Lew Ugalde MD Abs.Imm.Granulocyte 0.03 k/uL Normal 0.00-0.30 [facility] Comment on above: Performed By: #### C DP, MG, BMPX #### [place] [address] Exchange Architect: Lew Ugalde MD Abs.Neutrophil (Seg) 5.85 k/uL Normal 1.50-8.10 [facility] Comment on above: Performed By: #### C DP, MG, BMPX #### [place] [address] Exchange Architect: Lew Ugalde MD Basophils/100 WBC (Bld) 0 % Normal 0-2 M [facility] Comment on above: Performed By: #### C DP, MG, BMPX #### [place] [address] Exchange Architect: Lew Ugalde MD Eosinophils (Bld) [#/Vol] 0.29 10*3/uL Normal 0.00-0.44 [facility] Comment on above: Performed By: #### C DP, MG, BMPX #### [facility] [employer] [address] [place] [phone] Exchange Architect: Lew Ugalde MD Eosinophils/100 WBC (Bld) 3 % Normal 1-4 [facility] Comment on above: Performed By: #### C DP, MG, BMPX #### [facility] [employer] [address] [place] [phone] Exchange Architect: Lew Ugalde MD Erythrocyte distribution width (RBC) [Ratio] 14.4 % Normal 11.8-14.4 [facility] Comment on above: Performed By: #### C DP, MG, BMPX #### [facility] [employer] [address] [place] [address] Exchange Architect: Lew Ugalde MD Hematocrit (Bld) [Volume fraction] 27.9 % Low 36.3-47.1 [facility] Comment on above: Performed By: #### C DP, MG, BMPX #### [facility] [employer] [address] [place] [phone] Exchange Architect: Lew Ugalde MD Hemoglobin (Bld) [Mass/Vol] 9.0 g/dL Low 11.9-15.1 [facility] Comment on above: Performed By: #### C DP, MG, BMPX #### [facility] [employer] [address] [place] [address] Exchange Architect: Lew Ugalde MD Immature granulocytes/100 WBC (Bld) 0 % Normal 0 [facility] Comment on above: Performed By: #### C DP, MG, BMPX #### [facility] [employer] [address] [place] [address] Exchange Architect: Lew Ugalde MD Lymphocytes (Bld) [#/Vol] 2.37 10*3/uL Normal 1.10-3.70 [facility] Comment on above: Performed By: #### C DP, MG, BMPX #### [address] [address] Exchange Architect: Lew Ugalde MD Lymphocytes/100 WBC (Bld) 25 % Normal 24-43 [facility] Comment on above: Performed By: #### C DP, MG, BMPX #### [address] [address] Exchange Architect: Lew Ugalde MD MCH (RBC) [Entitic mass] 32.5 pg Normal 25.2-33.5 [facility] Comment on above: Performed By: #### C DP, MG, BMPX #### [place] [address] Exchange Architect: Lew Ugalde MD MCHC (RBC) [Mass/Vol] 32.3 g/dL Normal 28.4-34.8 [facility] Comment on above: Performed By: #### C DP, MG, BMPX #### [place] [address] Exchange Architect: Lew Ugalde MD MCV (RBC) [Entitic vol] 100.7 fL Normal 82.6-102.9 [facility] Comment on above: Performed By: #### C DP, MG, BMPX #### [place] [address] Exchange Architect: Lew Ugalde MD Monocytes (Bld) [#/Vol] 0.85 10*3/uL Normal 0.10-1.20 [facility] Comment on above: Performed By: #### C DP, MG, BMPX #### [place] [address] Exchange Architect: Lew Ugalde MD Monocytes/100 WBC (Bld) 9 % Normal 3-12 M [facility] Comment on above: Performed By: #### C DP, MG, BMPX #### [address] [place] [address] Exchange Architect: Lew Ugalde MD Neutrophil (Seg) 63 % Normal 36-65 [facility] Comment on above: Performed By: #### C DP, MG, BMPX #### [facility] [employer] [address] [place] [address] Exchange Architect: Lew Ugalde MD NRBC Automated 0.0 per 100 WBC Normal 0.0 [facility] Comment on above: Performed By: #### C DP, MG, BMPX #### [facility] [employer] [address] [place] [address] Exchange Architect: Lew Ugalde MD Platelet mean volume (Bld) [Entitic vol] 9.9 fL Normal 8.1-13.5 [facility] Comment on above: Performed By: #### C DP, MG, BMPX #### [facility] [employer] [address] [place] [address] Exchange Architect: Lew Ugalde MD Platelets (Bld) [#/Vol] 217 10*3/uL Normal 138-453 [facility] Comment on above: Performed By: #### C DP, MG, BMPX #### [facility] [employer] [address] [place] [phone] Exchange Architect: Lew Ugalde MD RBC (Bld) [#/Vol] 2.77 10*6/uL Low 3.95-5.11 [facility] Comment on above: Performed By: #### C DP, MG, BMPX #### [facility] [employer] [address] [place] [address] Exchange Architect: Lew Ugalde MD WBC (Bld) [#/Vol] 9.4 10*3/uL Normal 3.5-11.3 [facility] Comment on above: Performed By: #### C DP, MG, BMPX #### [facility] [employer] [address] [place] [address] [phone] Exchange Architect: Lew Ugalde MD Fluid Cell Count and Diffon 10-23-2023 Other Cells MONOCYTES Normal [facility] Comment on above: Result Comment: The reference range and other method performance specifications have not been established for this body fluid. The test result must be integrated into the clinical context for interpretation. Performed By: #### F LDCT #### [address] [phone] Exchange Architect: Lew Ugalde MD HCV RNA,Quant,PCRon 10-23-20 23 Source .PLASMA Normal [facility] Comment on above: Performed By: #### M G, PRCAL, CMPX, LACTIC, CDP #### [address] [phone] Exchange Architect: Lew Ugalde MD Magnesiumon 10-23-2023 Magnesium [Mass/Vol] 1.7 mg/dL Normal 1.6-2.6 [facility] Comment on above: Performed By: #### C DP, MG, BMPX #### [address] [phone] Exchange Architect: Lew Ugalde MD Surgical Pathology Reporton 10-23-2023 Surgical Pathology Report (NOTE) Path Number: [id number] -- Diagnosis -- SIGMOID COLON, BIOPSY: -HYPERPLASTIC POLYP. Carlene Chowdhury M.D. Electronically Signed Out gallo10/24/2023 Clinical Information Pre-Op Diagnosis: RECTAL BLEEDING Operative Findings: SIGMOID COLON POLYP Operation Performed: COLONOSCOPY DIAGNOSTIC kb Source of Specimen A: SIGMOID POLYP Gross Description ISA KAUR, SIGMOID COLON POLYP Received in formalin are two muñiz-white tissue fragments from 0.2 to 0.3 cm and are 0.5 x 0.2 x 0.1 cm in aggregate. Entirely 1cs. jj tm SLS/kb2:10/23/2023 Microscopic Description Microscopic examination performed. Processing Lab: [address] [id number] Interpretation Performed at [address], [place] [address] SURGICAL PATHOLOGY CONSULTATION Patient Name: ISA KAUR [facility] Rec: [id number] [facility] [address] [place] [phone] Normal [facility] Basic Metab w/rfx MGon 10-22 Creatinine [Mass/Vol] 12.6 mg/dL Critically high 0.5-0.9 [facility] Comment on above: Result Comment: Prev ious Alert Value Reported Performed By: #### M G, PRCAL, CMPX, LACTIC, CDP #### [address] [address] Exchange Architect: Lew Ugalde MD GFR/1.73 sq M.predicted among non-blacks MDRD (S/P/Bld) [Vol rate/Area] 3 mL/min/{1.73_m2} Low >60 [facility] Comment on above: Result Comment: These results are not intended for use in patients <18 years of age. eGFR results are calculated without a race factor using the 2020 CKD-EPI equation. Careful clinical correlation is recommended, particularly when comparing to results calculated using previous equations. The CKD-EPI equation is less accurate in patients with extremes of muscle mass, extra-renal metabolism of creatine, excessive creatine ingestion, or following therapy that affects renal tubular secretion. Performed By: #### M G, PRCAL, CMPX, LACTIC, CDP #### [facility] [employer] [address] [place] [phone] Exchange Architect: Lew Ugalde MD Anion gap [Moles/Vol] 11 mmol/L Normal 9-17 [facility] Comment on above: Performed By: #### M G, PRCAL, CMPX, LACTIC, CDP #### [facility] [employer] [address] [place] [address] Exchange Architect: Lew Ugalde MD Calcium [Mass/Vol] 8.6 mg/dL Normal 8.6-10.4 [facility] Comment on above: Performed By: #### M G, PRCAL, CMPX, LACTIC, CDP #### [facility] [address] [place] [address] Exchange Architect: Lew Ugalde MD Chloride [Moles/Vol] 104 mmol/L Normal 98-107 [facility] Comment on above: Performed By: #### M G, PRCAL, CMPX, LACTIC, CDP #### [facility] [address] [place] [address] Exchange Architect: Lew Ugalde MD CO2 [Moles/Vol] 24 mmol/L Normal 20-31 [facility] Comment on above: Performed By: #### M G, PRCAL, CMPX, LACTIC, CDP #### [facility] [employer] [address] [place] [address] Exchange Architect: Lew Ugalde MD Glucose [Mass/Vol] 106 mg/dL High 70-99 [facility] Comment on above: Performed By: #### M G, PRCAL, CMPX, LACTIC, CDP #### [facility] [employer] [address] [place] [phone] Exchange Architect: Lew Ugalde MD Potassium [Moles/Vol] 3.6 mmol/L Low 3.7-5.3 [facility] Comment on above: Performed By: #### M G, PRCAL, CMPX, LACTIC, CDP #### [facility] [employer] [address] [place] [phone] Exchange Architect: Lew Ugalde MD Sodium [Moles/Vol] 139 mmol/L Normal 135-144 [facility] Comment on above: Performed By: #### M G, PRCAL, CMPX, LACTIC, CDP #### [facility] [address] [place] [phone] Exchange Architect: Lew Ugalde MD Urea nitrogen [Mass/Vol] 48 mg/dL High 8-23 [facility] Comment on above: Performed By: #### M G, PRCAL, CMPX, LACTIC, CDP #### [address] [address] Exchange Architect: Lew Ugalde MD CBC with Diffon 10-22-2023 Abs. Basophil 0.06 k/uL Normal 0.00-0.20 [facility] Comment on above: Performed By: #### M G, PRCAL, CMPX, LACTIC, CDP #### [address] [address] Exchange Architect: Lew Ugalde MD Abs.Imm.Granulocyte <0.03 Normal 0.00-0.30 [facility] Comment on above: Performed By: #### M G, PRCAL, CMPX, LACTIC, CDP #### [place] [address] Exchange Architect: Lew Ugalde MD Abs.Neutrophil (Seg) 5.20 k/uL Normal 1.50-8.10 [facility] Comment on above: Performed By: #### M G, PRCAL, CMPX, LACTIC, CDP #### [address] [address] Exchange Architect: Lew Ugalde MD Basophils/100 WBC (Bld) 1 % Normal 0-2 M [facility] Comment on above: Performed By: #### M G, PRCAL, CMPX, LACTIC, CDP #### [address] [phone] Exchange Architect: Lew Ugalde MD Eosinophils (Bld) [#/Vol] 0.27 10*3/uL Normal 0.00-0.44 [facility] Comment on above: Performed By: #### M G, PRCAL, CMPX, LACTIC, CDP #### [address] [phone] Exchange Architect: Lew Ugalde MD Eosinophils/100 WBC (Bld) 3 % Normal 1-4 [facility] Comment on above: Performed By: #### M G, PRCAL, CMPX, LACTIC, CDP #### [facility] [employer] [address] [place] [phone] Exchange Architect: Lew Ugalde MD Erythrocyte distribution width (RBC) [Ratio] 15.0 % High 11.8-14.4 [facility] Comment on above: Performed By: #### M G, PRCAL, CMPX, LACTIC, CDP #### [facility] [employer] [address] [place] [phone] Exchange Architect: Lew Ugalde MD Hematocrit (Bld) [Volume fraction] 29.2 % Low 36.3-47.1 [facility] Comment on above: Performed By: #### M G, PRCAL, CMPX, LACTIC, CDP #### [facility] [employer] [address] [place] [phone] Exchange Architect: Lew Ugalde MD Hemoglobin (Bld) [Mass/Vol] 9.5 g/dL Low 11.9-15.1 [facility] Comment on above: Performed By: #### M G, PRCAL, CMPX, LACTIC, CDP #### [facility] [employer] [address] [place] [phone] Exchange Architect: Lew Ugalde MD Immature granulocytes/100 WBC (Bld) 0 % Normal 0 [facility] Comment on above: Performed By: #### M G, PRCAL, CMPX, LACTIC, CDP #### [facility] [employer] [address] [place] [phone] Exchange Architect: Lew Ugalde MD Lymphocytes (Bld) [#/Vol] 2.45 10*3/uL Normal 1.10-3.70 [facility] Comment on above: Performed By: #### M G, PRCAL, CMPX, LACTIC, CDP #### [facility] [employer] [address] [place] [address] Exchange Architect: Lew Ugalde MD Lymphocytes/100 WBC (Bld) 28 % Normal 24-43 [facility] Comment on above: Performed By: #### M G, PRCAL, CMPX, LACTIC, CDP #### [address] [address] Exchange Architect: Lew Ugalde MD MCH (RBC) [Entitic mass] 32.5 pg Normal 25.2-33.5 [facility] Comment on above: Performed By: #### M G, PRCAL, CMPX, LACTIC, CDP #### [place] [address] Exchange Architect: Lew Ugalde MD MCHC (RBC) [Mass/Vol] 32.5 g/dL Normal 28.4-34.8 [facility] [facility] Comment on above: Performed By: #### Luis A G, PRCAL, CMPX, LACTIC, CDP #### [address] [address] Exchange Architect: Lew Ugalde MD MCV (RBC) [Entitic vol] 100.0 fL Normal 82.6-102.9 [facility] Comment on above: Performed By: #### M G, PRCAL, CMPX, LACTIC, CDP #### [place] [address] Exchange Architect: Lew Ugalde MD Monocytes (Bld) [#/Vol] 0.66 10*3/uL Normal 0.10-1.20 [facility] Comment on above: Performed By: #### M G, PRCAL, CMPX, LACTIC, CDP #### [address] [address] Exchange Architect: Lew Ugalde MD Monocytes/100 WBC (Bld) 8 % Normal 3-12 M [facility] Comment on above: Performed By: #### M G, PRCAL, CMPX, LACTIC, CDP #### [address] [address] Exchange Architect: Lew Ugalde MD Neutrophil (Seg) 60 % Normal 36-65 [facility] Comment on above: Performed By: #### M G, PRCAL, CMPX, LACTIC, CDP #### [address] [address] Exchange Architect: Lew Ugalde MD NRBC Automated 0.0 per 100 WBC Normal 0.0 [facility] Comment on above: Performed By: #### M G, PRCAL, CMPX, LACTIC, CDP #### [address] [address] Exchange Architect: Lew Ugalde MD Platelet mean volume (Bld) [Entitic vol] 10.4 fL Normal 8.1-13.5 [facility] Comment on above: Performed By: #### M G, PRCAL, CMPX, LACTIC, CDP #### [address] [address] Exchange Architect: Lew Ugalde MD Platelets (Bld) [#/Vol] 286 10*3/uL Normal 138-453 [facility] Comment on above: Performed By: #### M G, PRCAL, CMPX, LACTIC, CDP #### [address] [address] Exchange Architect: Lew Ugalde MD RBC (Bld) [#/Vol] 2.92 10*6/uL Low 3.95-5.11 [facility] Comment on above: Performed By: #### M G, PRCAL, CMPX, LACTIC, CDP #### [address] [address] Exchange Architect: Lew Ugalde MD RBC morphology finding Nom (Bld) ANISOCYTOSIS PRESENT Normal [facility] Comment on above: Performed By: #### M G, PRCAL, CMPX, LACTIC, CDP #### [facility] [employer] [address] [place] [address] Exchange Architect: Lew Ugalde MD WBC (Bld) [#/Vol] 8.7 10*3/uL Normal 3.5-11.3 [facility] Comment on above: Performed By: #### M G, PRCAL, CMPX, LACTIC, CDP #### [facility] [employer] [address] [place] [address] Exchange Architect: Lew Ugalde MD Fecal Lactoferrinon 10-22-20 23 Fecal Lactoferrin POSITIVE for fecal lactoferrin, a marker for fecal leukocytes and an indicator Abnormal NFLACT [facility] Comment on above: Result Comment: of i ntestinal inflammation. Performed By: #### F LDCT #### [address] [address] Exchange Architect: Lew Ugalde MD Stool PCR Batteryon 10-22-20 23 Campylobacter sp PCR NEGATIVE: No Campylobacter spp. (jejuni or coli) DNA Detected Normal CAMNEG [facility] Comment on above: Performed By: #### F LDCT #### [facility] [employer] [address] [place] [address] Exchange Architect: Lew Ugalde MD E coli enterotox PCR NEGATIVE: No Enterotoxigenic E. coli (ETEC) Heat-labile and heat-stable (LT/ST) Normal EECNEG [facility] Comment on above: Result Comment: DNA Detected Performed By: #### F LDCT #### [facility] [employer] [address] [place] [address] Exchange Architect: Lew Ugalde MD Plesiomonas sp PCR Negative Normal PLENEG [facility] Comment on above: Performed By: #### F LDCT #### [facility] [employer] [address] [place] [address] Exchange Architect: Lew Ugalde MD Salmonella sp PCR Negative Normal SALNEG [facility] Comment on above: Performed By: #### F LDCT #### [address] [address] Exchange Architect: Lew Ugalde MD Shigatoxin gene PCR Negative Normal STXNEG [facility] Comment on above: Performed By: #### F LDCT #### [address] [address] Exchange Architect: Lew Ugalde MD Shigella sp PCR Negative Normal SHINEG [facility] Comment on above: Performed By: #### F LDCT #### [address] [address] Exchange Architect: Lew Ugalde MD Vibrio sp PCR NEGATIVE: No Vibrio (V. vulnificus, V, parahaemolyticus and V. cholerae) DNA Normal VIBNEG [facility] Comment on above: Result Comment: Dete cted Performed By: #### F LDCT #### [address] [address] Exchange Architect: Lew Ugalde MD Yersinia gene PCR Negative Normal YERNEG [facility] Comment on above: Performed By: #### F LDCT #### [address] [address] Exchange Architect: Lew Ugalde MD Basic Metab w/rfx MGon 10-21 Creatinine [Mass/Vol] 12.5 mg/dL Critically high 0.5-0.9 [facility] Comment on above: Result Comment: Prev ious Alert Value Reported Performed By: #### C DP, MG, BMPX #### [address] [address] Exchange Architect: Lew Ugalde MD GFR/1.73 sq M.predicted among non-blacks MDRD (S/P/Bld) [Vol rate/Area] 3 mL/min/{1.73_m2} Low >60 [facility] Comment on above: Result Comment: These results are not intended for use in patients <18 years of age. eGFR results are calculated without a race factor using the 2020 CKD-EPI equation. Careful clinical correlation is recommended, particularly when comparing to results calculated using previous equations. The CKD-EPI equation is less accurate in patients with extremes of muscle mass, extra-renal metabolism of creatine, excessive creatine ingestion, or following therapy that affects renal tubular secretion. Performed By: #### C DP, MG, BMPX #### [facility] [address] [place] [address] Exchange Architect: Lew Ugalde MD Potassium [Moles/Vol] 3.3 mmol/L Low 3.7-5.3 [facility] Comment on above: Performed By: #### C DP, MG, BMPX #### [address] [address] Exchange Architect: Lew Ugalde MD Anion gap [Moles/Vol] 13 mmol/L Normal 9-17 [facility] Comment on above: Performed By: #### C DP, MG, BMPX #### [facility] [employer] [address] [place] [address] Exchange Architect: Lew Ugalde MD Calcium [Mass/Vol] 8.4 mg/dL Low 8.6-10.4 [facility] Comment on above: Performed By: #### C DP, MG, BMPX #### [facility] [employer] [address] [place] [address] Exchange Architect: Lew Ugalde MD Chloride [Moles/Vol] 102 mmol/L Normal 98-107 [facility] Comment on above: Performed By: #### C DP, MG, BMPX #### [facility] [address] [place] [address] Exchange Architect: Lew Ugalde MD CO2 [Moles/Vol] 23 mmol/L Normal 20-31 [facility] Comment on above: Performed By: #### C DP, MG, BMPX #### [facility] [address] [place] [address] Exchange Architect: Lew Ugalde MD Glucose [Mass/Vol] 77 mg/dL Normal 70-99 [facility] Comment on above: Performed By: #### C DP, MG, BMPX #### [facility] [employer] [address] [place] [address] Exchange Architect: Lew Ugalde MD Sodium [Moles/Vol] 138 mmol/L Normal 135-144 [facility] Comment on above: Performed By: #### C DP, MG, BMPX #### [facility] [address] [place] [address] Exchange Architect: Lew Ugalde MD Urea nitrogen [Mass/Vol] 53 mg/dL High 8-23 [facility] Comment on above: Performed By: #### C DP, MG, BMPX #### [facility] [address] [place] [address] Exchange Architect: Lew Ugalde MD Brain Natri. Peptideon 10-21 Natriuretic peptide B (Bld) [Mass/Vol] 2676 pg/mL High <300 [facility] Comment on above: Result Comment: An age-independent cutoff point of 300 pg/ml has a 98% negative predictive value excluding acute heart failure. Performed By: #### M G, PRCAL, CMPX, LACTIC, CDP #### [facility] [address] [place] [address] Exchange Architect: Lew Ugalde MD C diff Ag + Toxinon 10-21-20 C diff Ag + Toxin Negative Normal NEG [facility] Comment on above: Result Comment: No C . difficile antigen and Toxin Detected. Performed By: #### M G, PRCAL, CMPX, LACTIC, CDP #### [facility] [employer] [address] [place] [address] Exchange Architect: Lew Ugalde MD Specimen Description .FECES Normal [facility] Comment on above: Performed By: #### M G, PRCAL, CMPX, LACTIC, CDP #### [address] [address] Exchange Architect: Lew Ugalde MD CBC with Diffon 10-21-2023 Abs. Basophil 0.06 k/uL Normal 0.00-0.20 [facility] Comment on above: Performed By: #### C DP, MG, BMPX #### [place] [address] Exchange Architect: Lew Ugalde MD Abs.Imm.Granulocyte 0.04 k/uL Normal 0.00-0.30 [facility] Comment on above: Performed By: #### C DP, MG, BMPX #### [place] [address] Exchange Architect: Lew Ugalde MD Abs.Neutrophil (Seg) 5.99 k/uL Normal 1.50-8.10 [facility] Comment on above: Performed By: #### C DP, MG, BMPX #### [place] [address] Exchange Architect: Lew Ugalde MD Basophils/100 WBC (Bld) 1 % Normal 0-2 M [facility] Comment on above: Performed By: #### C DP, MG, BMPX #### [place] [address] Exchange Architect: Lew Ugalde MD Eosinophils (Bld) [#/Vol] 0.29 10*3/uL Normal 0.00-0.44 [facility] Comment on above: Performed By: #### C DP, MG, BMPX #### [address] [address] Exchange Architect: Lew Ugalde MD Eosinophils/100 WBC (Bld) 3 % Normal 1-4 [facility] Comment on above: Performed By: #### C DP, MG, BMPX #### [address] [address] Exchange Architect: Lew Ugalde MD Erythrocyte distribution width (RBC) [Ratio] 14.7 % High 11.8-14.4 [facility] Comment on above: Performed By: #### C DP, MG, BMPX #### [address] [address] Exchange Architect: Lew Ugalde MD Hematocrit (Bld) [Volume fraction] 27.6 % Low 36.3-47.1 [facility] Comment on above: Performed By: #### C DP, MG, BMPX #### [place] [address] Exchange Architect: Lew Ugalde MD Hemoglobin (Bld) [Mass/Vol] 9.0 g/dL Low 11.9-15.1 [facility] Comment on above: Performed By: #### C DP, MG, BMPX #### [address] [address] Exchange Architect: Lew Ugalde MD Immature granulocytes/100 WBC (Bld) 0 % Normal 0 [facility] Comment on above: Performed By: #### C DP, MG, BMPX #### [place] [address] Exchange Architect: Lew Ugalde MD Lymphocytes (Bld) [#/Vol] 2.37 10*3/uL Normal 1.10-3.70 [facility] Comment on above: Performed By: #### C DP, MG, BMPX #### [facility] [employer] [address] [place] [address] Exchange Architect: Lew Ugalde MD Lymphocytes/100 WBC (Bld) 25 % Normal 24-43 [facility] Comment on above: Performed By: #### C DP, MG, BMPX #### [address] [address] Exchange Architect: Lew Ugalde MD MCH (RBC) [Entitic mass] 32.5 pg Normal 25.2-33.5 [facility] Comment on above: Performed By: #### C DP, MG, BMPX #### [address] [address] Exchange Architect: Lew Ugalde MD MCHC (RBC) [Mass/Vol] 32.6 g/dL Normal 28.4-34.8 [facility] Comment on above: Performed By: #### C DP, MG, BMPX #### [address] [address] Exchange Architect: Lew Ugalde MD MCV (RBC) [Entitic vol] 99.6 fL Normal 82.6-102.9 [facility] Comment on above: Performed By: #### C DP, MG, BMPX #### [address] [address] Exchange Architect: Lew Ugalde MD Monocytes (Bld) [#/Vol] 0.86 10*3/uL Normal 0.10-1.20 [facility] Comment on above: Performed By: #### C DP, MG, BMPX #### [address] [address] Exchange Architect: Lew Ugalde MD Monocytes/100 WBC (Bld) 9 % Normal 3-12 M [facility] Comment on above: Performed By: #### C DP, MG, BMPX #### [address] [address] Exchange Architect: Lew Ugalde MD Neutrophil (Seg) 62 % Normal 36-65 [facility] Comment on above: Performed By: #### C DP, MG, BMPX #### [address] [address] Exchange Architect: Lew Ugalde MD NRBC Automated 0.0 per 100 WBC Normal 0.0 [facility] Comment on above: Performed By: #### C DP, MG, BMPX #### [place] [address] Exchange Architect: Lew Ugalde MD Platelet mean volume (Bld) [Entitic vol] 9.8 fL Normal 8.1-13.5 [facility] Comment on above: Performed By: #### C DP, MG, BMPX #### [place] [address] Exchange Architect: Lew Ugalde MD Platelets (Bld) [#/Vol] 232 10*3/uL Normal 138-453 [facility] Comment on above: Performed By: #### C DP, MG, BMPX #### [place] [address] Exchange Architect: Lew Ugalde MD RBC (Bld) [#/Vol] 2.77 10*6/uL Low 3.95-5.11 [facility] Comment on above: Performed By: #### C DP, MG, BMPX #### [place] [address] Exchange Architect: Lew Ugalde MD RBC morphology finding Nom (Bld) ANISOCYTOSIS PRESENT Normal [facility] Comment on above: Performed By: #### C DP, MG, BMPX #### [address] [address] Exchange Architect: Lew Ugalde MD WBC (Bld) [#/Vol] 9.6 10*3/uL Normal 3.5-11.3 [facility] Comment on above: Performed By: #### C DP, MG, BMPX #### [address] [address] Exchange Architect: Lew Ugalde MD Creatine Kinaseon 10-21-2023 CK [Catalytic activity/Vol] 74 U/L Normal 26-192 [facility] Comment on above: Performed By: #### M G, PRCAL, CMPX, LACTIC, CDP #### [address] [address] Exchange Architect: Lew Ugalde MD Fluid Cell Count and Diffon 10-21-2023 Lymphocytes/100 WBC (Bld) 40 % Normal [facility] Comment on above: Result Comment: The reference range and other method performance specifications have not been established for this body fluid. The test result must be integrated into the clinical context for interpretation. Performed By: #### F LDCT #### [address] [address] Exchange Architect: Lew Ugalde MD Neutrophils/100 WBC (Bld) 24 % Normal [facility] Comment on above: Result Comment: The reference range and other method performance specifications have not been established for this body fluid. The test result must be integrated into the clinical context for interpretation. Performed By: #### F LDCT #### [address] [address] Exchange Architect: Lew Ugalde MD RBC (Bld) [#/Vol] 10*6/uL Normal [facility] Comment on above: Result Comment: The reference range and other method performance specifications have not been established for this body fluid. The test result must be integrated into the clinical context for interpretation. Performed By: #### F LDCT #### [address] [address] Exchange Architect: Lew Ugalde MD WBC (Bld) [#/Vol] 0.004 10*3/uL Normal [facility] Comment on above: Result Comment: The reference range and other method performance specifications have not been established for this body fluid. The test result must be integrated into the clinical context for interpretation. Performed By: #### F LDCT #### [address] [address] Exchange Architect: Lew Ugaled MD Type of Specimen PERITONEAL DIALYSIS FLUID Normal [facility] Comment on above: Result Comment: SRINIVAS ECTED ON 10/21 AT 0201: PREVIOUSLY REPORTED .BODY FLUID Performed By: #### F LDCT #### [address] [address] Exchange Architect: Lew Ugalde MD Lactic Acidon 10-21-2023 Lactic Acid,Whole Bl 2.1 mmol/L Normal 0.7-2.1 [facility] Comment on above: Performed By: #### M G, PRCAL, CMPX, LACTIC, CDP #### [address] [address] Exchange Architect: Lew Ugalde MD Magnesiumon 10-21-2023 Magnesium [Mass/Vol] 1.9 mg/dL Normal 1.6-2.6 [facility] Comment on above: Performed By: #### C DP, MG, BMPX #### [facility] [employer] [address] [place] [address] Exchange Architect: Lew Ugalde MD Occult Blood, Fecalon 2022 Occult Blood 1 Positive Abnormal NEG [facility] Comment on above: Performed By: #### M G, PRCAL, CMPX, LACTIC, CDP #### [facility] [employer] [address] [place] [address] Exchange Architect: Lew Ugalde MD Specimen 1 Date [id number] Normal [facility] Comment on above: Performed By: #### M G, PRCAL, CMPX, LACTIC, CDP #### [facility] [employer] [address] [place] [address] Exchange Architect: Lew Ugalde MD Specimen 1 Time 1204 Normal [facility] Comment on above: Performed By: #### M G, PRCAL, CMPX, LACTIC, CDP #### [facility] [employer] [address] [place] [address] Exchange Architect: Lew Ugalde MD Phosphorus, Inorg.on 023 Phosphorus, Inorg. 4.3 mg/dL Normal 2.6-4.5 [facility] Comment on above: Performed By: #### M G, PRCAL, CMPX, LACTIC, CDP #### [facility] [employer] [address] [place] [address] Exchange Architect: Lew Ugalde MD Stool PCR Batteryon 10-21-20 23 Specimen Description .FECES Normal [facility] Comment on above: Performed By: #### F LDCT #### [address] [address] Exchange Architect: Lew Ugalde MD TSH w/reflex to FT4on 2022 Thyroid Stim. Horm. 1.24 uIU/mL Normal 0.30-5.00 [facility] Comment on above: Performed By: #### M G, PRCAL, CMPX, LACTIC, CDP #### [facility] [employer] [address] [place] [address] Exchange Architect: Lew Ugalde MD UA w/Reflex Cultureon 2022 Bilirubin, SemiQt,Ur Negative Normal NEG [facility] Comment on above: Performed By: #### M G, PRCAL, CMPX, LACTIC, CDP #### [facility] [employer] [address] [place] [address] Exchange Architect: Lew Ugalde MD Blood, Urine SMALL Abnormal NEG [facility] Comment on above: Performed By: #### M G, PRCAL, CMPX, LACTIC, CDP #### [facility] [employer] [address] [place] [address] Exchange Architect: Lew Ugalde MD Clarity (U) Turbid Abnormal CLEAR [facility] Comment on above: Performed By: #### M G, PRCAL, CMPX, LACTIC, CDP #### [facility] [employer] [address] [place] [address] Exchange Architect: Lew Ugalde MD Color (U) Dark Yellow Abnormal YEL [facility] Comment on above: Performed By: #### M G, PRCAL, CMPX, LACTIC, CDP #### [facility] [address] [place] [address] Exchange Architect: Lew Ugalde MD Glucose Ql (U) Negative Normal NEG [facility] Comment on above: Performed By: #### M G, PRCAL, CMPX, LACTIC, CDP #### [address] [address] Exchange Architect: Lew Ugalde MD Ketones Ql (U) TRACE Abnormal NEG [facility] Comment on above: Performed By: #### M G, PRCAL, CMPX, LACTIC, CDP #### [address] [address] Exchange Architect: Lew Ugalde MD Leukocyte esterase Test strip Ql (U) LARGE Abnormal NEG [facility] Comment on above: Performed By: #### M G, PRCAL, CMPX, LACTIC, CDP #### [facility] [employer] [address] [place] [address] Exchange Architect: Lew Ugalde MD Nitrite,Ur Negative Normal NEG [facility] Comment on above: Performed By: #### M G, PRCAL, CMPX, LACTIC, CDP #### [facility] [employer] [address] [place] [address] Exchange Architect: Lew Ugalde MD PH,Ur 5.0 Normal 5.0-8.0 [facility] Comment on above: Performed By: #### M G, PRCAL, CMPX, LACTIC, CDP #### [facility] [employer] [address] [place] [address] Exchange Architect: Lew Ugalde MD Protein Ql (U) 2+ mg/dL Abnormal NEG [facility] Comment on above: Performed By: #### M G, PRCAL, CMPX, LACTIC, CDP #### [facility] [employer] [address] [place] [address] Exchange Architect: Lew Ugalde MD Spec. Duvall,Ur 1.019 Normal 1.005-1.030 [facility] Comment on above: Performed By: #### M G, PRCAL, CMPX, LACTIC, CDP #### [facility] [employer] [address] [place] [address] Exchange Architect: Lew Ugalde MD Urobilinogen,Ur Normal Normal 0.0-1.0 [facility] Comment on above: Performed By: #### M G, PRCAL, CMPX, LACTIC, CDP #### [facility] [employer] [address] [place] [address] Exchange Architect: Lew Ugalde MD Urinalysis,Microon 3 Bacteria MANY Abnormal NONE [facility] Comment on above: Performed By: #### M G, PRCAL, CMPX, LACTIC, CDP #### [address] [address] Exchange Architect: Lew Ugalde MD Casts 5 TO 10 HYALINE Normal 0-8 [facility] Comment on above: Result Comment: Refe rence range defined for non-centrifuged specimen. Performed By: #### M G, PRCAL, CMPX, LACTIC, CDP #### [facility] [employer] [address] [place] [address] Exchange Architect: Lew Ugalde MD Epithelial cells LM Ql (Urine sed) 20 TO 50 Normal 0-5 [facility] Comment on above: Performed By: #### M G, PRCAL, CMPX, LACTIC, CDP #### [facility] [address] [place] [address] Exchange Architect: Lew Ugalde MD Urine RBC's 2 TO 5 Normal 0-4 [facility] Comment on above: Result Comment: Refe rence range defined for non-centrifuged specimen. Performed By: #### M G, PRCAL, CMPX, LACTIC, CDP #### [facility] [address] [place] [address] Exchange Architect: Lew Ugalde MD Urine WBC's TOO NUMEROUS TO COUNT Normal 0-5 [facility] Comment on above: Performed By: #### M G, PRCAL, CMPX, LACTIC, CDP #### [facility] [address] [place] [address] Exchange Architect: Lew Ugalde MD APTTon 10-20-2023 aPTT Coag (Bld) [Time] 22.3 s Low 23.0-36.5 [facility] Comment on above: Result Comment: IV Heparin Therapy Range: 66.0-92.0 sec Performed By: #### F LDCT #### [facility] [employer] [address] [place] [address] Exchange Architect: Lew Ugalde MD C-Reactive Proteinon 023 CRP [Mass/Vol] mg/L Normal 0.0-5.0 [facility] Comment on above: Performed By: #### M G, PRCAL, CMPX, LACTIC, CDP #### [facility] [address] [place] [address] Exchange Architect: Lew Ugalde MD CBC with Diffon 10-20-2023 Abs. Basophil 0.05 k/uL Normal 0.00-0.20 [facility] Comment on above: Performed By: #### M G, PRCAL, CMPX, LACTIC, CDP #### [facility] [employer] [address] [place] [address] [phone] Exchange Architect: Lew Ugalde MD Abs.Imm.Granulocyte 0.05 k/uL Normal 0.00-0.30 [facility] Comment on above: Performed By: #### M G, PRCAL, CMPX, LACTIC, CDP #### [address] [address] Exchange Architect: Lew Ugalde MD Abs.Neutrophil (Seg) 7.53 k/uL Normal 1.50-8.10 [facility] Comment on above: Performed By: #### M G, PRCAL, CMPX, LACTIC, CDP #### [place] [address] Exchange Architect: Lew Ugalde MD Basophils/100 WBC (Bld) 1 % Normal 0-2 [facility] Comment on above: Performed By: #### M G, PRCAL, CMPX, LACTIC, CDP #### [place] [address] Exchange Architect: Lew Ugalde MD Eosinophils (Bld) [#/Vol] 0.25 10*3/uL Normal 0.00-0.44 [facility] Comment on above: Performed By: #### M G, PRCAL, CMPX, LACTIC, CDP #### [address] [address] Exchange Architect: Lew Ugalde MD Eosinophils/100 WBC (Bld) 2 % Normal 1-4 [facility] Comment on above: Performed By: #### M G, PRCAL, CMPX, LACTIC, CDP #### [place] [address] Exchange Architect: Lew Ugalde MD Erythrocyte distribution width (RBC) [Ratio] 14.7 % High 11.8-14.4 [facility] Comment on above: Performed By: #### M G, PRCAL, CMPX, LACTIC, CDP #### [address] [place] [address] Exchange Architect: Lew Ugalde MD Hematocrit (Bld) [Volume fraction] 30.7 % Low 36.3-47.1 [facility] Comment on above: Performed By: #### M G, PRCAL, CMPX, LACTIC, CDP #### [address] [address] Exchange Architect: Lew Ugalde MD Hemoglobin (Bld) [Mass/Vol] 10.0 g/dL Low 11.9-15.1 [facility] Comment on above: Performed By: #### M G, PRCAL, CMPX, LACTIC, CDP #### [facility] [employer] [address] [place] [phone] Exchange Architect: Lew Ugalde MD Immature granulocytes/100 WBC (Bld) 1 % High 0 [facility] Comment on above: Performed By: #### M G, PRCAL, CMPX, LACTIC, CDP #### [address] [address] Exchange Architect: Lew Ugalde MD Lymphocytes (Bld) [#/Vol] 2.06 10*3/uL Normal 1.10-3.70 [facility] Comment on above: Performed By: #### M G, PRCAL, CMPX, LACTIC, CDP #### [address] [address] Exchange Architect: Lew Ugalde MD Lymphocytes/100 WBC (Bld) 19 % Low 24-43 [facility] Comment on above: Performed By: #### M G, PRCAL, CMPX, LACTIC, CDP #### [facility] [employer] [address] [place] [phone] Exchange Architect: Lew Ugalde MD MCH (RBC) [Entitic mass] 32.6 pg Normal 25.2-33.5 [facility] Comment on above: Performed By: #### M G, PRCAL, CMPX, LACTIC, CDP #### [address] [address] Exchange Architect: Lew Ugalde MD MCHC (RBC) [Mass/Vol] 32.6 g/dL Normal 28.4-34.8 [facility] Comment on above: Performed By: #### M G, PRCAL, CMPX, LACTIC, CDP #### [address] [address] Exchange Architect: Lew Ugalde MD MCV (RBC) [Entitic vol] 100.0 fL Normal 82.6-102.9 [facility] Comment on above: Performed By: #### M G, PRCAL, CMPX, LACTIC, CDP #### [address] [address] Exchange Architect: Lew Ugalde MD Monocytes (Bld) [#/Vol] 0.75 10*3/uL Normal 0.10-1.20 [facility] Comment on above: Performed By: #### M G, PRCAL, CMPX, LACTIC, CDP #### [address] [address] Exchange Architect: Lew Ugalde MD Monocytes/100 WBC (Bld) 7 % Normal 3-12 [facility] Comment on above: Performed By: #### M G, PRCAL, CMPX, LACTIC, CDP #### [address] [address] Exchange Architect: Lew Ugalde MD Neutrophil (Seg) 70 % High 36-65 [facility] Comment on above: Performed By: #### M G, PRCAL, CMPX, LACTIC, CDP #### [address] [address] Exchange Architect: Lew Ugalde MD NRBC Automated 0.2 per 100 WBC High 0.0 [facility] Comment on above: Performed By: #### M G, PRCAL, CMPX, LACTIC, CDP #### [address] [address] Exchange Architect: Lew Ugalde MD Platelet mean volume (Bld) [Entitic vol] 9.8 fL Normal 8.1-13.5 [facility] Comment on above: Performed By: #### M G, PRCAL, CMPX, LACTIC, CDP #### [address] [address] Exchange Architect: Lew Ugalde MD Platelets (Bld) [#/Vol] 273 10*3/uL Normal 138-453 [facility] Comment on above: Performed By: #### M G, PRCAL, CMPX, LACTIC, CDP #### [address] [address] Exchange Architect: Lew Ugalde MD RBC (Bld) [#/Vol] 3.07 10*6/uL Low 3.95-5.11 [facility] Comment on above: Performed By: #### M G, PRCAL, CMPX, LACTIC, CDP #### [address] [address] Exchange Architect: Lew Ugalde MD RBC morphology finding Nom (Bld) ANISOCYTOSIS PRESENT Normal [facility] Comment on above: Performed By: #### M G, PRCAL, CMPX, LACTIC, CDP #### [address] [address] Exchange Architect: Lew Ugalde MD WBC (Bld) [#/Vol] 10.7 10*3/uL Normal 3.5-11.3 [facility] Comment on above: Performed By: #### M G, PRCAL, CMPX, LACTIC, CDP #### [address] [address] Exchange Architect: Lew Ugalde MD CT ABDOMEN PELVIS WO CONTRKESHA Ton 10-20-2023 CT ABDOMEN PELVIS WO CONTRAST EXAMINATION: CT OF THE ABDOMEN AND PELVIS WITHOUT CONTRAST 10/20/2023 9:26 am TECHNIQUE: CT of the abdomen and pelvis was performed without the administration of intravenous contrast. Multiplanar reformatted images are provided for review. Automated exposure control, iterative reconstruction, and/or weight based adjustment of the mA/kV was utilized to reduce the radiation dose to as low as reasonably achievable. COMPARISON: None. HISTORY: ORDERING SYSTEM PROVIDED HISTORY: epigastric pain, hx of AVM, peritoneal dialysis TECHNOLOGIST PROVIDED HISTORY: epigastric pain, hx of AVM, peritoneal dialysis Decision Support Exception - unselect if not a suspected or confirmed emergency medical condition->Emergency Medical Condition (MA) Reason for Exam: epigastric pain hx of AVM peritoneal dialysis FINDINGS: Lower Chest: Lung bases are clear. Coronary artery disease Organs: Liver is normal in size and density. No focal masses identified. No evidence of intrahepatic ductal dilatation. Spleen is normal size. The gallbladder is surgically absent. Both adrenal glands are normal. Pancreas is normal in appearance. . Small right kidney. Bilateral renal cysts. Punctate bilateral renal stones.. The kidneys are otherwise without evidence of hydronephrosis .. GI/Bowel: The visualized bowel and mesentery show no mass lesions. No evidence of bowel obstruction. Pelvis: No intrapelvic mass is identified. Bladder and rectum are intact. Peritoneum/Retroperit oneum: Large amount of free fluid in the abdomen and pelvis. Peritoneal dialysis catheter.. No lymphadenopathy. No evidence of pneumoperitoneum. Bones/Soft Tissues: Small fat containing umbilical hernia. Vascular calcifications are seen compatible with atherosclerotic disease.. 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 No acute bony abnormalities. IMPRESSION: Nonobstructing bilateral renal stones Atrophic right kidney Bilateral renal cysts Large amount of free fluid in the abdomen and pelvis. Peritoneal dialysis catheter.. RECOMMENDATIONS: Based on MIPS measure 405, incidental abd lesions in this patient population do not warrant F/U W/O a documented medical reason.. Interpreted by: Carlos Garcia MD Signed by: Carlos Garcia MD 10/20/23 Final result Normal [facility] Comp Metabolic Pr/rfx MGon 1 12-21-2022 Creatinine [Mass/Vol] 11.2 mg/dL Critically high 0.5-0.9 [facility] Comment on above: Performed By: #### F LDCT #### [address] [address] Exchange Architect: Lew Ugalde MD GFR/1.73 sq M.predicted among non-blacks MDRD (S/P/Bld) [Vol rate/Area] 3 mL/min/{1.73_m2} Low >60 [facility] Comment on above: Result Comment: These results are not intended for use in patients <18 years of age. eGFR results are calculated without a race factor using the 2020 CKD-EPI equation. Careful clinical correlation is recommended, particularly when comparing to results calculated using previous equations. The CKD-EPI equation is less accurate in patients with extremes of muscle mass, extra-renal metabolism of creatine, excessive creatine ingestion, or following therapy that affects renal tubular secretion. Performed By: #### F LDCT #### [place] [address] Exchange Architect: Lew Ugalde MD Potassium [Moles/Vol] 3.1 mmol/L Low 3.7-5.3 [facility] Comment on above: Performed By: #### F LDCT #### [address] [address] Exchange Architect: Lew Ugalde MD Albumin [Mass/Vol] 3.0 g/dL Low 3.5-5.2 [facility] Comment on above: Performed By: #### F LDCT #### [address] [address] Exchange Architect: Lew Ugalde MD Albumin/Glob Ratio 0.8 Low 1.0-2.5 [facility] Comment on above: Performed By: #### F LDCT #### [address] [address] Exchange Architect: Lew Ugalde MD Alkaline Phos 167 U/L High 35-104 [facility] Comment on above: Performed By: #### F LDCT #### [address] [address] Exchange Architect: Lew Ugalde MD ALT [Catalytic activity/Vol] 31 U/L Normal 5-33 [facility] Comment on above: Performed By: #### F LDCT #### [address] [address] Exchange Architect: Lew Ugalde MD Anion gap [Moles/Vol] 16 mmol/L Normal 9-17 [facility] Comment on above: Performed By: #### F LDCT #### [address] [address] Exchange Architect: Lew Ugalde MD AST [Catalytic activity/Vol] 35 U/L High <32 [facility] Comment on above: Performed By: #### F LDCT #### [address] [address] Exchange Architect: Lew Ugalde MD Bilirubin [Mass/Vol] 0.2 mg/dL Low 0.3-1.2 [facility] Comment on above: Performed By: #### F LDCT #### [address] [address] Exchange Architect: Lew Ugalde MD Calcium [Mass/Vol] 8.9 mg/dL Normal 8.6-10.4 [facility] Comment on above: Performed By: #### F LDCT #### [address] [address] Exchange Architect: Lew Ugalde MD Chloride [Moles/Vol] 99 mmol/L Normal 98-107 [facility] Comment on above: Performed By: #### F LDCT #### [address] [address] Exchange Architect: Lew Ugalde MD CO2 [Moles/Vol] 24 mmol/L Normal 20-31 [facility] Comment on above: Performed By: #### F LDCT #### [address] [address] Exchange Architect: Lew Ugalde MD Glucose [Mass/Vol] 85 mg/dL Normal 70-99 [facility] Comment on above: Performed By: #### F LDCT #### [address] [address] Exchange Architect: Lew Ugalde MD Protein [Mass/Vol] 7.0 g/dL Normal 6.4-8.3 [facility] Comment on above: Performed By: #### F LDCT #### [address] [address] Exchange Architect: Lew Ugalde MD Sodium [Moles/Vol] 139 mmol/L Normal 135-144 [facility] Comment on above: Performed By: #### F LDCT #### [address] [phone] Exchange Architect: Lew Ugalde MD Urea nitrogen [Mass/Vol] 50 mg/dL High 8-23 [facility] Comment on above: Performed By: #### F LDCT #### [address] [address] Exchange Architect: Lew Ugalde MD Lipaseon 10-20-2023 Lipase [Catalytic activity/Vol] 104 U/L High 13-60 [facility] Comment on above: Performed By: #### F LDCT #### [address] [address] Exchange Architect: Lew Ugalde MD Magnesiumon 10-20-2023 Magnesium [Mass/Vol] 2.1 mg/dL Normal 1.6-2.6 [facility] Comment on above: Performed By: #### F LDCT #### [facility] [employer] [address] [place] [address] [phone] Exchange Architect: Lew Ugalde MD PTon 10-20-2023 INR Coag (PPP) [Relative time] 0.9 {INR} Normal [facility] Comment on above: Result Comment: Therapeutic Range: Moderate Anticoagulant Intensity: INR = 2.0-3.0 High Anticoagulant Intensity: INR = 2.5-3.5 Performed By: #### M G, PRCAL, CMPX, LACTIC, CDP #### [facility] [address] [place] [address] [phone] Exchange Architect: Lew Ugalde MD PT Coag (PPP) [Time] 12.3 s Normal 11.7-14.9 [facility] Comment on above: Performed By: #### M G, PRCAL, CMPX, LACTIC, CDP #### [facility] [employer] [address] [place] [address] [phone] Exchange Architect: Lew Ugalde MD Procalcitoninon 10-20-2023 Procalcitonin 0.38 ng/mL High <0.09 [facility] Comment on above: Result Comment: Suspected Sepsis: <0.50 ng/mL Low likelihood of sepsis. 0.50-2.00 ng/mL Increased likelihood of sepsis. Antibiotics encouraged. >2.00 ng/mL High risk of sepsis/shock. Antibiotics strongly encouraged. Suspected Lower Resp Tract Infections: <0.24 ng/mL Low likelihood of bacterial infection. >0.24 ng/mL Increased likelihood of bacterial infection. Antibiotics encouraged. With successful antibiotic therapy, PCT levels should decrease rapidly. (Half-life of 24 to 36 hours.) Procalcitonin values from samples collected within the first 6 hours of systemic infection may still be low. Retesting may be indicated. Values from day 1 and day 4 can be entered into the Change in Procalcitonin Calculator ([email or web address]) to determine the patient's Mortality Risk Prognosis In healthy neonates, plasma Procalcitonin (PCT) concentrations increase gradually after , reaching peak values at about 24 hours of age then decrease to normal values below 0.5 ng/mL by 48-72 hours of age. Performed By: #### M G, PRCAL, CMPX, LACTIC, CDP #### [email or web address] [address] [place], [place] [phone] Exchange Architect: Lew Ugalde MD Troponinon 10-20-2023 Troponin, High Sens 65 ng/L Critically high 0-14 [facility] Comment on above: Result Comment: High Sensitivity Troponin values cannot be compared with other Troponin methodologies. Previous Alert Value Reported Performed By: #### M G, PRCAL, CMPX, LACTIC, CDP #### [facility] [address] [place], [place] [phone] Exchange Architect: Lew Ugalde MD Troponin, High Sens 69 ng/L Critically high 0-14 [facility] Comment on above: Result Comment: High Sensitivity Troponin values cannot be compared with other Troponin methodologies. Performed By: #### F LDCT #### [facility] [address] [place] [address] Exchange Architect: Lew Ugalde MD US ABDOMEN LIMITEDon 023 US ABDOMEN LIMITED EXAMINATION: RIGHT UPPER QUADRANT ULTRASOUND 10/20/2023 3:27 pm COMPARISON: None. HISTORY: ORDERING SYSTEM PROVIDED HISTORY: epigastric pain, elevated alk phos, lipase TECHNOLOGIST PROVIDED HISTORY: epigastric pain, elevated alk phos, lipase Specify organ?->LIVER FINDINGS: LIVER: The liver demonstrates normal echogenicity without evidence of intrahepatic biliary ductal dilatation. BILIARY SYSTEM: Gallbladder is surgically absent. Common bile duct is within normal limits measuring 4 mm. RIGHT KIDNEY: The right kidney is atrophic PANCREAS: Visualized portions of the pancreas are unremarkable. OTHER: There is evidence of right upper quadrant ascites. IMPRESSION: Moderate ascites Atrophic right kidney Interpreted by: Carlos Garcia MD Signed by: Carlos Garcia MD 10/20/23 Final result Normal [facility] XR CHEST PORTABLEon 10-20-20 XR CHEST PORTABLE EXAMINATION: ONE XRAY VIEW OF THE CHEST 10/20/2023 12:57 pm COMPARISON: None. HISTORY: ORDERING SYSTEM PROVIDED HISTORY: cardiac w/u, epigastric pain TECHNOLOGIST PROVIDED HISTORY: cardiac w/u, epigastric pain FINDINGS: Medical devices: Rounded densities overlies the lower cervical spine, may represent orthopedic hardware or overlying artifacts. Mediastinum/Heart: The mediastinal contours are normal. The heart appears normal in size. Lungs: Opacification of the left lower lung and patchy opacities in the right lung base, likely atelectasis however pneumonia is not excluded. Pleura: Small left pleural effusion. No pneumothorax. IMPRESSION: 1. Opacification of the left lower lung and patchy opacities in the right lung base, likely atelectasis however pneumonia is not excluded. 2. Small left pleural effusion. Interpreted by: Christa Zendejas MD Signed by: Christa Zendejas MD 10/20/23 Final result Normal [facility] Basic Metab w/rfx MGon 09-07 Creatinine [Mass/Vol] 9.3 mg/dL Critically high 0.5-0.9 [facility] Comment on above: Result Comment: Prev ious Alert Value Reported Performed By: #### M G, PRCAL, CMPX, LACTIC, CDP #### [facility] [employer] [facility] [place] [address] Exchange Architect: Lew Ugalde MD GFR/1.73 sq M.predicted among non-blacks MDRD (S/P/Bld) [Vol rate/Area] 4 mL/min/{1.73_m2} Low >60 [facility] Comment on above: Result Comment: These results are not intended for use in patients <18 years of age. eGFR results are calculated without a race factor using the 2020 CKD-EPI equation. Careful clinical correlation is recommended, particularly when comparing to results calculated using previous equations. The CKD-EPI equation is less accurate in patients with extremes of muscle mass, extra-renal metabolism of creatine, excessive creatine ingestion, or following therapy that affects renal tubular secretion. Performed By: #### M G, PRCAL, CMPX, LACTIC, CDP #### [email or web address] [address] [place] [address] Exchange Architect: Lew Ugalde MD Anion gap [Moles/Vol] 9 mmol/L Normal 9-17 [facility] Comment on above: Performed By: #### M G, PRCAL, CMPX, LACTIC, CDP #### [facility] [employer] [address] [place] [phone] Exchange Architect: Lew Ugalde MD Calcium [Mass/Vol] 8.3 mg/dL Low 8.6-10.4 [facility] Comment on above: Performed By: #### M G, PRCAL, CMPX, LACTIC, CDP #### [facility] [employer] [address] [place] [phone] Exchange Architect: Lew Ugalde MD Chloride [Moles/Vol] 104 mmol/L Normal 98-107 [facility] Comment on above: Performed By: #### M G, PRCAL, CMPX, LACTIC, CDP #### [facility] [employer] [address] [place] [phone] Exchange Architect: Lew Ugalde MD CO2 [Moles/Vol] 26 mmol/L Normal 20-31 [facility] Comment on above: Performed By: #### M G, PRCAL, CMPX, LACTIC, CDP #### [address] [address] Exchange Architect: Lew Ugalde MD Glucose [Mass/Vol] 77 mg/dL Normal 70-99 [facility] Comment on above: Performed By: #### M G, PRCAL, CMPX, LACTIC, CDP #### [facility] [employer] [address] [place] [phone] Exchange Architect: Lew Ugalde MD Potassium [Moles/Vol] 4.0 mmol/L Normal 3.7-5.3 [facility] Comment on above: Performed By: #### M G, PRCAL, CMPX, LACTIC, CDP #### [facility] [employer] [address] [place] [phone] Exchange Architect: Lew Ugalde MD Sodium [Moles/Vol] 139 mmol/L Normal 135-144 [facility] Comment on above: Performed By: #### M G, PRCAL, CMPX, LACTIC, CDP #### [facility] [employer] [address] [place] [phone] Exchange Architect: Lew Ugalde MD Urea nitrogen [Mass/Vol] 34 mg/dL High 8- [facility] Comment on above: Performed By: #### M G, PRCAL, CMPX, LACTIC, CDP #### [address] [address] Exchange Architect: Lew Ugalde MD CBC with Diffon 09-07-2023 Abs. Basophil 0.04 k/uL Normal 0.00-0.20 [facility] Comment on above: Performed By: #### M G, PRCAL, CMPX, LACTIC, CDP #### [address] [address] Exchange Architect: Lew Ugalde MD Abs.Imm.Granulocyte 0.04 k/uL Normal 0.00-0.30 [facility] Comment on above: Performed By: #### M G, PRCAL, CMPX, LACTIC, CDP #### [facility] [employer] [address] [place] [phone] Exchange Architect: Lew Ugalde MD Abs.Neutrophil (Seg) 5.25 k/uL Normal 1.50-8.10 [facility] Comment on above: Performed By: #### M G, PRCAL, CMPX, LACTIC, CDP #### [address] [address] Exchange Architect: Lew Ugalde MD Basophils/100 WBC (Bld) 1 % Normal 0-2 [facility] Comment on above: Performed By: #### M G, PRCAL, CMPX, LACTIC, CDP #### [address] [address] Exchange Architect: Lew Ugalde MD Eosinophils (Bld) [#/Vol] 0.31 10*3/uL Normal 0.00-0.44 [facility] Comment on above: Performed By: #### M G, PRCAL, CMPX, LACTIC, CDP #### [facility] [employer] [address] [place] [phone] Exchange Architect: Lew Ugalde MD Eosinophils/100 WBC (Bld) 4 % Normal 1-4 [facility] Comment on above: Performed By: #### M G, PRCAL, CMPX, LACTIC, CDP #### [facility] [employer] [address] [place] [phone] Exchange Architect: Lew Ugalde MD Erythrocyte distribution width (RBC) [Ratio] 16.0 % High 11.8-14.4 [facility] Comment on above: Performed By: #### M G, PRCAL, CMPX, LACTIC, CDP #### [address] [address] Exchange Architect: Lew Ugalde MD Hematocrit (Bld) [Volume fraction] 26.4 % Low 36.3-47.1 [facility] Comment on above: Performed By: #### M G, PRCAL, CMPX, LACTIC, CDP #### [facility] [employer] [address] [place] [phone] Exchange Architect: Lew Ugalde MD Hemoglobin (Bld) [Mass/Vol] 8.4 g/dL Low 11.9-15.1 [facility] Comment on above: Performed By: #### M G, PRCAL, CMPX, LACTIC, CDP #### [facility] [employer] [address] [place] [phone] Exchange Architect: Lew Ugalde MD Immature granulocytes/100 WBC (Bld) 1 % High 0 [facility] Comment on above: Performed By: #### M G, PRCAL, CMPX, LACTIC, CDP #### [facility] [employer] [address] [place] [phone] Exchange Architect: Lew Ugalde MD Lymphocytes (Bld) [#/Vol] 1.89 10*3/uL Normal 1.10-3.70 [facility] Comment on above: Performed By: #### M G, PRCAL, CMPX, LACTIC, CDP #### [address] [address] Exchange Architect: Lew Ugalde MD Lymphocytes/100 WBC (Bld) 23 % Low 24-43 [facility] Comment on above: Performed By: #### M G, PRCAL, CMPX, LACTIC, CDP #### [address] [address] Exchange Architect: Lew Ugalde MD MCH (RBC) [Entitic mass] 32.2 pg Normal 25.2-33.5 [facility] Comment on above: Performed By: #### Luis A G, PRCAL, CMPX, LACTIC, CDP #### [address] [address] Exchange Architect: Lew Ugalde MD MCHC (RBC) [Mass/Vol] 31.8 g/dL Normal 28.4-34.8 [facility] Comment on above: Performed By: #### M G, PRCAL, CMPX, LACTIC, CDP #### [address] [address] Exchange Architect: Lew Ugalde MD MCV (RBC) [Entitic vol] 101.1 fL Normal 82.6-102.9 [facility] Comment on above: Performed By: #### M G, PRCAL, CMPX, LACTIC, CDP #### [address] [address] Exchange Architect: Lew Ugalde MD Monocytes (Bld) [#/Vol] 0.62 10*3/uL Normal 0.10-1.20 [facility] Comment on above: Performed By: #### M G, PRCAL, CMPX, LACTIC, CDP #### [address] [phone] Exchange Architect: Lew Ugalde MD Monocytes/100 WBC (Bld) 8 % Normal 3-12 M [facility] Comment on above: Performed By: #### M G, PRCAL, CMPX, LACTIC, CDP #### [address] [address] Exchange Architect: Lew Ugalde MD Neutrophil (Seg) 63 % Normal 36-65 [facility] Comment on above: Performed By: #### M G, PRCAL, CMPX, LACTIC, CDP #### [address] [address] Exchange Architect: Lew Ugalde MD NRBC Automated 0.2 per 100 WBC High 0.0 [facility] Comment on above: Performed By: #### M G, PRCAL, CMPX, LACTIC, CDP #### [address] [address] Exchange Architect: Lew Ugalde MD Platelet mean volume (Bld) [Entitic vol] 9.2 fL Normal 8.1-13.5 [facility] Comment on above: Performed By: #### M G, PRCAL, CMPX, LACTIC, CDP #### [address] [address] Exchange Architect: Lew Ugalde MD Platelets (Bld) [#/Vol] 305 10*3/uL Normal 138-453 [facility] Comment on above: Performed By: #### M G, PRCAL, CMPX, LACTIC, CDP #### [address] [address] Exchange Architect: Lew Ugalde MD RBC (Bld) [#/Vol] 2.61 10*6/uL Low 3.95-5.11 [facility] Comment on above: Performed By: #### M G, PRCAL, CMPX, LACTIC, CDP #### [email or web address] [address] [place] [address] Exchange Architect: Lew Ugalde MD RBC morphology finding Nom (Bld) ANISOCYTOSIS PRESENT Normal [facility] Comment on above: Performed By: #### M G, PRCAL, CMPX, LACTIC, CDP #### [email or web address] [address] [place] [address] Exchange Architect: Lew Ugalde MD WBC (Bld) [#/Vol] 8.2 10*3/uL Normal 3.5-11.3 [facility] Comment on above: Performed By: #### M G, PRCAL, CMPX, LACTIC, CDP #### [email or web address] [address] [place] [address] Exchange Architect: Lew Ugalde MD Stool PCR [facility] 09-07-20 Campylobacter sp PCR NEGATIVE: No Campylobacter spp. (jejuni or coli) DNA Detected Normal CAMNEG [facility] Comment on above: Performed By: #### M G, PRCAL, CMPX, LACTIC, CDP #### [email or web address] [address] [place] [address] Exchange Architect: Lew Ugalde MD E coli enterotox PCR NEGATIVE: No Enterotoxigenic E. coli (ETEC) Heat-labile and heat-stable (LT/ST) Normal EECNEG [facility] Comment on above: Result Comment: DNA Detected Performed By: #### M G, PRCAL, CMPX, LACTIC, CDP #### [email or web address] [address] [place] [address] Exchange Architect: Lew Ugalde MD Plesiomonas sp PCR Negative Normal PLENEG [facility] Comment on above: Performed By: #### M G, PRCAL, CMPX, LACTIC, CDP #### [email or web address] [address] [place] [address] Exchange Architect: Lew Ugalde MD Salmonella sp PCR Negative Normal SALNEG [facility] Comment on above: Performed By: #### M G, PRCAL, CMPX, LACTIC, CDP #### [facility] [employer] [address] [place] [address] Exchange Architect: Lew Ugalde MD Shigatoxin gene PCR Negative Normal STXNEG [facility] Comment on above: Performed By: #### M G, PRCAL, CMPX, LACTIC, CDP #### [facility] [employer] [address] [place] [address] Exchange Architect: Lew Ugalde MD Shigella sp PCR Negative Normal SHINEG [facility] Comment on above: Performed By: #### M G, PRCAL, CMPX, LACTIC, CDP #### [facility] [employer] [address] [place] [address] Exchange Architect: Lew Ugalde MD Vibrio sp PCR NEGATIVE: No Vibrio (V. vulnificus, V, parahaemolyticus and V. cholerae) DNA Normal VIBNEG [facility] Comment on above: Result Comment: Dete cted Performed By: #### M G, PRCAL, CMPX, LACTIC, CDP #### [facility] [employer] [address] [place] [address] Exchange Architect: Lew Ugalde MD Yersinia gene PCR Negative Normal YERNEG [facility] Comment on above: Performed By: #### M G, PRCAL, CMPX, LACTIC, CDP #### [facility] [employer] [address] [place] [address] Exchange Architect: Lew Ugalde MD Basic Metabolic Profon 09-06 Creatinine [Mass/Vol] 9.4 mg/dL Critically high 0.5-0.9 [facility] Comment on above: Result Comment: Prev ious Alert Value Reported Performed By: #### C DP, MG, BMPX #### [facility] [employer] [address] [place] [address] Exchange Architect: Lew Ugalde MD GFR/1.73 sq M.predicted among non-blacks MDRD (S/P/Bld) [Vol rate/Area] 4 mL/min/{1.73_m2} Low >60 [facility] Comment on above: Result Comment: These results are not intended for use in patients <18 years of age. eGFR results are calculated without a race factor using the 2020 CKD-EPI equation. Careful clinical correlation is recommended, particularly when comparing to results calculated using previous equations. The CKD-EPI equation is less accurate in patients with extremes of muscle mass, extra-renal metabolism of creatine, excessive creatine ingestion, or following therapy that affects renal tubular secretion. Performed By: #### C DP, MG, BMPX #### [address] [address] Exchange Architect: Lew Ugalde MD Anion gap [Moles/Vol] 9 mmol/L Normal 9-17 [facility] Comment on above: Performed By: #### C DP, MG, BMPX #### [place] [address] Exchange Architect: Lew Ugalde MD Calcium [Mass/Vol] 8.5 mg/dL Low 8.6-10.4 [facility] Comment on above: Performed By: #### C DP, MG, BMPX #### [address] [address] Exchange Architect: Lew Ugalde MD Chloride [Moles/Vol] 101 mmol/L Normal 98-107 [facility] Comment on above: Performed By: #### C DP, MG, BMPX #### [facility] [employer] [address] [place] [address] Exchange Architect: Lew Ugalde MD CO2 [Moles/Vol] 26 mmol/L Normal 20-31 [facility] Comment on above: Performed By: #### C DP, MG, BMPX #### [facility] [employer] [address] [place] [address] Exchange Architect: Lew Ugalde MD Glucose [Mass/Vol] 81 mg/dL Normal 70-99 [facility] Comment on above: Performed By: #### C DP, MG, BMPX #### [address] [address] Exchange Architect: Lew Ugalde MD Potassium [Moles/Vol] 4.7 mmol/L Normal 3.7-5.3 [facility] Comment on above: Performed By: #### C DP, MG, BMPX #### [facility] [employer] [address] [place] [address] Exchange Architect: Lew Ugalde MD Sodium [Moles/Vol] 136 mmol/L Normal 135-144 [facility] Comment on above: Performed By: #### C DP, MG, BMPX #### [address] [address] Exchange Architect: Lew Ugalde MD Urea nitrogen [Mass/Vol] 40 mg/dL High 8-23 [facility] Comment on above: Performed By: #### C DP, MG, BMPX #### [facility] [employer] [address] [place] [address] Exchange Architect: Lew Ugalde MD CBC with Diffon 09-06-2023 Abs. Basophil 0.06 k/uL Normal 0.00-0.20 [facility] Comment on above: Performed By: #### C DP, MG, BMPX #### [facility] [employer] [address] [place] [address] Exchange Architect: Lew Ugalde MD Abs.Imm.Granulocyte 0.03 k/uL Normal 0.00-0.30 [facility] Comment on above: Performed By: #### C DP, MG, BMPX #### [facility] [employer] [address] [place] [address] Exchange Architect: Lew Ugalde MD Abs.Neutrophil (Seg) 5.61 k/uL Normal 1.50-8.10 [facility] Comment on above: Performed By: #### C DP, MG, BMPX #### [address] [address] Exchange Architect: Lew Ugalde MD Basophils/100 WBC (Bld) 1 % Normal 0-2 M [facility] Comment on above: Performed By: #### C DP, MG, BMPX #### [place] [address] Exchange Architect: Lew Ugalde MD Eosinophils (Bld) [#/Vol] 0.35 10*3/uL Normal 0.00-0.44 [facility] Comment on above: Performed By: #### C DP, MG, BMPX #### [place] [address] Exchange Architect: Lew Ugalde MD Eosinophils/100 WBC (Bld) 4 % Normal 1-4 [facility] Comment on above: Performed By: #### C DP, MG, BMPX #### [place] [address] Exchange Architect: Lew Ugalde MD Erythrocyte distribution width (RBC) [Ratio] 16.2 % High 11.8-14.4 [facility] Comment on above: Performed By: #### C DP, MG, BMPX #### [place] [address] Exchange Architect: Lew Ugalde MD Hematocrit (Bld) [Volume fraction] 25.7 % Low 36.3-47.1 [facility] Comment on above: Performed By: #### C DP, MG, BMPX #### [facility] [employer] [address] [place] [address] Exchange Architect: Lew Ugalde MD Hemoglobin (Bld) [Mass/Vol] 8.4 g/dL Low 11.9-15.1 [facility] Comment on above: Performed By: #### C DP, MG, BMPX #### [address] [address] Exchange Architect: Lew Ugalde MD Immature granulocytes/100 WBC (Bld) 0 % Normal 0 [facility] Comment on above: Performed By: #### C DP, MG, BMPX #### [address] [address] Exchange Architect: Lew Ugalde MD Lymphocytes (Bld) [#/Vol] 2.46 10*3/uL Normal 1.10-3.70 [facility] Comment on above: Performed By: #### C DP, MG, BMPX #### [address] [address] Exchange Architect: Lew Ugalde MD Lymphocytes/100 WBC (Bld) 27 % Normal 24-43 [facility] Comment on above: Performed By: #### C DP, MG, BMPX #### [address] [address] Exchange Architect: Lew Ugalde MD MCH (RBC) [Entitic mass] 32.7 pg Normal 25.2-33.5 [facility] Comment on above: Performed By: #### C DP, MG, BMPX #### [address] [address] Exchange Architect: Lew Ugalde MD MCHC (RBC) [Mass/Vol] 32.7 g/dL Normal 28.4-34.8 [facility] Comment on above: Performed By: #### C DP, MG, BMPX #### [address] [address] Exchange Architect: Lew Ugalde MD MCV (RBC) [Entitic vol] 100.0 fL Normal 82.6-102.9 M [facility] Comment on above: Performed By: #### C DP, MG, BMPX #### [address] [address] Exchange Architect: Lew Ugalde MD Monocytes (Bld) [#/Vol] 0.59 10*3/uL Normal 0.10-1.20 [facility] Comment on above: Performed By: #### C DP, MG, BMPX #### [address] [address] Exchange Architect: Lew Ugalde MD Monocytes/100 WBC (Bld) 7 % Normal 3-12 M [facility] Comment on above: Performed By: #### C DP, MG, BMPX #### [place] [address] Exchange Architect: Lew Ugalde MD Neutrophil (Seg) 61 % Normal 36-65 [facility] Comment on above: Performed By: #### C DP, MG, BMPX #### [address] [address] Exchange Architect: Lew Ugalde MD NRBC Automated 0.2 per 100 WBC High 0.0 [facility] Comment on above: Performed By: #### C DP, MG, BMPX #### [place] [address] Exchange Architect: Lew Ugalde MD Platelet mean volume (Bld) [Entitic vol] 9.4 fL Normal 8.1-13.5 [facility] Comment on above: Performed By: #### C DP, MG, BMPX #### [address] [address] Exchange Architect: Lew Ugalde MD Platelets (Bld) [#/Vol] 293 10*3/uL Normal 138-453 [facility] Comment on above: Performed By: #### C DP, MG, BMPX #### [address] [address] Exchange Architect: Lew Ugalde MD RBC (Bld) [#/Vol] 2.57 10*6/uL Low 3.95-5.11 [facility] Comment on above: Performed By: #### C DP, MG, BMPX #### [facility] [employer] [address] [place] [address] Exchange Architect: Lew Ugalde MD RBC morphology finding Nom (Bld) ANISOCYTOSIS PRESENT Normal [facility] Comment on above: Performed By: #### C DP, MG, BMPX #### [address] [address] Exchange Architect: Lew Ugalde MD WBC (Bld) [#/Vol] 9.1 10*3/uL Normal 3.5-11.3 [facility] Comment on above: Performed By: #### C DP, MG, BMPX #### [address] [address] Exchange Architect: Lew Ugalde MD Hgb/Hcton 09-06-2023 Hematocrit (Bld) [Volume fraction] 26.0 % Low 36.3-47.1 [facility] Comment on above: Performed By: #### C DP, MG, BMPX #### [facility] [employer] [address] [place] [address] Exchange Architect: Lew Ugalde MD Hemoglobin (Bld) [Mass/Vol] 8.7 g/dL Low 11.9-15.1 [facility] Comment on above: Performed By: #### C DP, MG, BMPX #### [facility] [employer] [address] [place] [address] Exchange Architect: Lew Ugalde MD APTTon 09-05-2023 aPTT Coag (Bld) [Time] 26.0 s Normal 23.0-36.5 [facility] Comment on above: Result Comment: IV Heparin Therapy Range: 66.0-92.0 sec Performed By: #### C DP, MG, BMPX #### [place] [address] Exchange Architect: Lew Ugalde MD Basic Metabolic Profon 09-05 Creatinine [Mass/Vol] 9.0 mg/dL Critically high 0.5-0.9 [facility] Comment on above: Result Comment: Prev ious Alert Value Reported Performed By: #### C DP, MG, BMPX #### [place] [address] Exchange Architect: Lew Ugalde MD GFR/1.73 sq M.predicted among non-blacks MDRD (S/P/Bld) [Vol rate/Area] 4 mL/min/{1.73_m2} Low >60 [facility] Comment on above: Result Comment: These results are not intended for use in patients <18 years of age. eGFR results are calculated without a race factor using the 2020 CKD-EPI equation. Careful clinical correlation is recommended, particularly when comparing to results calculated using previous equations. The CKD-EPI equation is less accurate in patients with extremes of muscle mass, extra-renal metabolism of creatine, excessive creatine ingestion, or following therapy that affects renal tubular secretion. Performed By: #### C DP, MG, BMPX #### [place] [address] Exchange Architect: Lew Ugalde MD Anion gap [Moles/Vol] 10 mmol/L Normal 9-17 [facility] Comment on above: Performed By: #### C DP, MG, BMPX #### [place] [address] Exchange Architect: Lew Ugalde MD Calcium [Mass/Vol] 8.2 mg/dL Low 8.6-10.4 [facility] Comment on above: Performed By: #### C DP, MG, BMPX #### [facility] [employer] [address] [place] [address] Exchange Architect: Lew Ugalde MD Chloride [Moles/Vol] 101 mmol/L Normal 98-107 [facility] Comment on above: Performed By: #### C DP, MG, BMPX #### [facility] [employer] [address] [place] [address] Exchange Architect: Lew Ugalde MD CO2 [Moles/Vol] 24 mmol/L Normal 20-31 [facility] Comment on above: Performed By: #### C DP, MG, BMPX #### [facility] [employer] [address] [place] [address] Exchange Architect: Lew Ugalde MD Glucose [Mass/Vol] 81 mg/dL Normal 70-99 [facility] Comment on above: Performed By: #### C DP, MG, BMPX #### [address] [address] Exchange Architect: Lew Ugalde MD Potassium [Moles/Vol] 4.8 mmol/L Normal 3.7-5.3 [facility] Comment on above: Performed By: #### C DP, MG, BMPX #### [address] [address] Exchange Architect: Lew Ugalde MD Sodium [Moles/Vol] 135 mmol/L Normal 135-144 [facility] Comment on above: Performed By: #### C DP, MG, BMPX #### [facility] [employer] [address] [place] [address] Exchange Architect: Lew Ugalde MD Urea nitrogen [Mass/Vol] 46 mg/dL High 8-23 [facility] Comment on above: Performed By: #### C DP, MG, BMPX #### [facility] [employer] [address] [place] [address] Exchange Architect: Lew Uaglde MD C diff Ag + Toxinon 09-05-20 23 C diff Ag + Toxin INDETERMINATE: Refle x testing to molecular method Abnormal NEG [facility] Comment on above: Performed By: #### F LDCT #### [address] [address] Exchange Architect: Lew Ugalde MD C difficile tox, PCRon 09-05 C difficile tox, PCR POSITIVE: C diffici le tcdB nucleic acid detected by RT-PCR. Abnormal CDTNEG [facility] Comment on above: Performed By: #### F LDCT #### [address] [address] Exchange Architect: Lew Ugalde MD Specimen Description .FECES Normal [facility] Comment on above: Performed By: #### F LDCT #### [address] [address] Exchange Architect: Lew Ugalde MD CBC with Diffon 09-05-2023 Abs. Basophil 0.03 k/uL Normal 0.00-0.20 [facility] Comment on above: Performed By: #### C DP MG, BMPX #### [address] [address] Exchange Architect: Lew Ugalde MD Abs.Imm.Granulocyte 0.05 k/uL Normal 0.00-0.30 [facility] Comment on above: Performed By: #### C DP, MG, BMPX #### [address] [address] Exchange Architect: Lew Ugalde MD Abs.Neutrophil (Seg) 7.64 k/uL Normal 1.50-8.10 [facility] Comment on above: Performed By: #### C DP MG, BMPX #### [address] [address] Exchange Architect: Lew Ugalde MD Basophils/100 WBC (Bld) 0 % Normal 0-2 M [facility] Comment on above: Performed By: #### C DP, MG, BMPX #### [address] [address] Exchange Architect: Lew Ugalde MD Eosinophils (Bld) [#/Vol] 0.31 10*3/uL Normal 0.00-0.44 [facility] Comment on above: Performed By: #### C DP, MG, BMPX #### [facility] [employer] [address] [place] [address] Exchange Architect: Lew Ugalde MD Eosinophils/100 WBC (Bld) 3 % Normal 1-4 [facility] Comment on above: Performed By: #### C DP, MG, BMPX #### [place] [address] Exchange Architect: Lew Ugalde MD Erythrocyte distribution width (RBC) [Ratio] 16.9 % High 11.8-14.4 [facility] Comment on above: Performed By: #### C DP, MG, BMPX #### [place] [address] Exchange Architect: Lew Ugalde MD Hematocrit (Bld) [Volume fraction] 21.4 % Low 36.3-47.1 [facility] Comment on above: Performed By: #### C DP, MG, BMPX #### [facility] [employer] [address] [place] [address] Exchange Architect: Lew Ugalde MD Hemoglobin (Bld) [Mass/Vol] 6.8 g/dL Critically low 11.9-15.1 [facility] Comment on above: Performed By: #### C DP, MG, BMPX #### [facility] [employer] [address] [place] [address] Exchange Architect: Lew Ugalde MD Immature granulocytes/100 WBC (Bld) 1 % High 0 [facility] Comment on above: Performed By: #### C DP, MG, BMPX #### [address] [address] Exchange Architect: Lew Ugalde MD Lymphocytes (Bld) [#/Vol] 2.12 10*3/uL Normal 1.10-3.70 [facility] Comment on above: Performed By: #### C DP, MG, BMPX #### [address] [address] Exchange Architect: Lew Ugalde MD Lymphocytes/100 WBC (Bld) 20 % Low 24-43 [facility] Comment on above: Performed By: #### C DP, MG, BMPX #### [address] [address] Exchange Architect: Lew Ugalde MD MCH (RBC) [Entitic mass] 32.7 pg Normal 25.2-33.5 [facility] Comment on above: Performed By: #### C DP, MG, BMPX #### [address] [address] Exchange Architect: Lew Ugalde MD MCHC (RBC) [Mass/Vol] 31.8 g/dL Normal 28.4-34.8 [facility] Comment on above: Performed By: #### C DP, MG, BMPX #### [address] [address] Exchange Architect: Lew Ugalde MD MCV (RBC) [Entitic vol] 102.9 fL Normal 82.6-102.9 M [facility] Comment on above: Performed By: #### C DP, MG, BMPX #### [address] [address] Exchange Architect: Lew Ugalde MD Monocytes (Bld) [#/Vol] 0.69 10*3/uL Normal 0.10-1.20 [facility] Comment on above: Performed By: #### C DP, MG, BMPX #### [address] [address] Exchange Architect: Lew Ugalde MD Monocytes/100 WBC (Bld) 6 % Normal 3-12 M [facility] Comment on above: Performed By: #### C DP, MG, BMPX #### [address] [address] Exchange Architect: Lew Ugalde MD Neutrophil (Seg) 70 % High 36-65 [facility] Comment on above: Performed By: #### C DP, MG, BMPX #### [address] [address] Exchange Architect: Lew Ugalde MD NRBC Automated 0.0 per 100 WBC Normal 0.0 [facility] Comment on above: Performed By: #### C DP, MG, BMPX #### [address] [address] Exchange Architect: Lew Ugalde MD Platelet mean volume (Bld) [Entitic vol] 9.6 fL Normal 8.1-13.5 [facility] Comment on above: Performed By: #### C DP, MG, BMPX #### [address] [address] Exchange Architect: Lew Ugalde MD Platelets (Bld) [#/Vol] 281 10*3/uL Normal 138-453 [facility] Comment on above: Performed By: #### C DP, MG, BMPX #### [address] [address] Exchange Architect: Lew Ugalde MD RBC (Bld) [#/Vol] 2.08 10*6/uL Low 3.95-5.11 [facility] Comment on above: Performed By: #### C DP, MG, BMPX #### [facility] [address] [place] [address] Exchange Architect: Lew Ugalde MD RBC morphology finding Nom (Bld) ANISOCYTOSIS PRESENT Normal [facility] Comment on above: Performed By: #### C DP, MG, BMPX #### [facility] [employer] [address] [place] [address] Exchange Architect: Lew Ugalde MD WBC (Bld) [#/Vol] 10.8 10*3/uL Normal 3.5-11.3 [facility] Comment on above: Performed By: #### C DP, MG, BMPX #### [facility] [employer] [address] [place] [address] Exchange Architect: Lew Ugalde MD Ferritinon 09-05-2023 Ferritin [Mass/Vol] 714 ng/mL High 13-150 [facility] Comment on above: Performed By: #### C DP, MG, BMPX #### [facility] [employer] [address] [place] [address] Exchange Architect: Lew Ugalde MD Hgb/Hcton 09-05-2023 Hematocrit (Bld) [Volume fraction] 21.6 % Low 36.3-47.1 [facility] Comment on above: Performed By: #### M G, PRCAL, CMPX, LACTIC, CDP #### [facility] [employer] [address] [place] [address] Exchange Architect: Lew Ugalde MD Hemoglobin (Bld) [Mass/Vol] 6.9 g/dL Critically low 11.9-15.1 [facility] Comment on above: Performed By: #### M G, PRCAL, CMPX, LACTIC, CDP #### [facility] [employer] [address] [place] [address] Exchange Architect: Lew Ugalde MD Hematocrit (Bld) [Volume fraction] 23.2 % Low 36.3-47.1 [facility] Comment on above: Performed By: #### M G, PRCAL, CMPX, LACTIC, CDP #### [facility] [address] [place], [place] [phone] Exchange Architect: Lew Ugalde MD Hemoglobin (Bld) [Mass/Vol] 7.4 g/dL Low 11.9-15.1 [facility] Comment on above: Performed By: #### M G, PRCAL, CMPX, LACTIC, CDP #### [facility] [address] [place], [place] [phone] Exchange Architect: Lew Ugalde MD NM GI BLOOD LOSSon MD GI BLOOD LOSS EXAMINATION: NUCLEAR MEDICINE GASTRIC BLEEDING STUDY 09/05/2023 TECHNIQUE: Following the intravenous injection of 16 mCi of 99 mTc-labeled RBC's, a flow study and standard images of the abdomen was obtained over a total period of 60 minutes COMPARISON: None HISTORY: ORDERING SYSTEM PROVIDED HISTORY: Drop in Hgb, hematochezia with clots TECHNOLOGIST PROVIDED HISTORY: Pt is C-diff positive Drop in Hgb, hematochezia with clots Reason for Exam: Drop in Hgb, hematochezia with clots, Pt is C-diff positive FINDINGS: Activity is seen within the blood pool, including the great vessels, heart, liver, and spleen. A small amount of activity accumulates in the bladder over the course of the study. There is diffuse abnormal accumulation of radiotracer in the stomach suggesting active gastric bleed. Activity is more significant over the distal body of the stomach/antral area. IMPRESSION: Abnormal radiotracer uptake in the stomach with punctate area of more increased activity over the distal body of the stomach/antral area suspicious for the site of active bleeding. RECOMMENDATIONS: If the patient shows hemodynamic signs of an active bleed in the next 20 hours, additional images can be acquired. Interpreted by: Karey Abel MD Wall, Mary J, MD Signed by: Karey Abel MD 09/05/23 Final result Normal [facility] PTon 09-05-2023 INR Coag (PPP) [Relative time] 1.0 {INR} Normal [facility] Comment on above: Result Comment: Therapeutic Range: Moderate Anticoagulant Intensity: INR = 2.0-3.0 High Anticoagulant Intensity: INR = 2.5-3.5 Performed By: #### C DP, MG, BMPX #### [facility] [address] [place] [address] [phone] Exchange Architect: Lew Ugalde MD PT Coag (PPP) [Time] 13.1 s Normal 11.7-14.9 [facility] Comment on above: Performed By: #### C DP, MG, BMPX #### [facility] [employer] [address] [place] [address] [phone] Exchange Architect: Lew Ugalde MD Type + Screenon 09-05-2023 Type + Screen Sample Expiration 09/08/2023,2359 Arm Band Number [id number] ABO/Rh(D) B POSITIVE Antibody Screen NEGATIVE Unit Number [id number] Blood Component Type Leukocyte Reduced Red Cell Unit Division 00 Status of Unit TRANSFUSED Transfusion Status OK TO TRANSFUSE Crossmatch Result COMPATIBLE Normal [facility] Comment on above: Performed By: #### C DP, MG, BMPX #### [facility] [employer] [address] [place] [address] [phone] Exchange Architect: Lew Ugalde MD Basic Metabolic Profon 09-04 Creatinine [Mass/Vol] 8.9 mg/dL Critically high 0.5-0.9 [facility] Comment on above: Performed By: #### M G, PRCAL, CMPX, LACTIC, CDP #### [facility] [employer] [address] [place] [address] [phone] Exchange Architect: Lew Ugalde MD GFR/1.73 sq M.predicted among non-blacks MDRD (S/P/Bld) [Vol rate/Area] 4 mL/min/{1.73_m2} Low >60 [facility] Comment on above: Result Comment: These results are not intended for use in patients <18 years of age. eGFR results are calculated without a race factor using the 2020 CKD-EPI equation. Careful clinical correlation is recommended, particularly when comparing to results calculated using previous equations. The CKD-EPI equation is less accurate in patients with extremes of muscle mass, extra-renal metabolism of creatine, excessive creatine ingestion, or following therapy that affects renal tubular secretion. Performed By: #### M G, PRCAL, CMPX, LACTIC, CDP #### [address] [address] Exchange Architect: Lew Ugalde MD Anion gap [Moles/Vol] 12 mmol/L Normal 9-17 [facility] Comment on above: Performed By: #### M G, PRCAL, CMPX, LACTIC, CDP #### [address] [address] Exchange Architect: Lew Ugalde MD Calcium [Mass/Vol] 8.8 mg/dL Normal 8.6-10.4 [facility] Comment on above: Performed By: #### M G, PRCAL, CMPX, LACTIC, CDP #### [address] [address] Exchange Architect: Lew Ugalde MD Chloride [Moles/Vol] 102 mmol/L Normal 98-107 [facility] Comment on above: Performed By: #### M G, PRCAL, CMPX, LACTIC, CDP #### [address] [address] Exchange Architect: Lew Ugalde MD CO2 [Moles/Vol] 22 mmol/L Normal 20-31 [facility] Comment on above: Performed By: #### M G, PRCAL, CMPX, LACTIC, CDP #### [address] [address] Exchange Architect: Lew Ugalde MD Glucose [Mass/Vol] 86 mg/dL Normal 70-99 [facility] Comment on above: Performed By: #### M G, PRCAL, CMPX, LACTIC, CDP #### [address] [phone] Exchange Architect: Lew Ugalde MD Potassium [Moles/Vol] 4.9 mmol/L Normal 3.7-5.3 [facility] Comment on above: Performed By: #### M G, PRCAL, CMPX, LACTIC, CDP #### [address] [address] Exchange Architect: Lew Ugalde MD Sodium [Moles/Vol] 136 mmol/L Normal 135-144 [facility] Comment on above: Performed By: #### M G, PRCAL, CMPX, LACTIC, CDP #### [address] [address] Exchange Architect: Lew Ugalde MD Urea nitrogen [Mass/Vol] 52 mg/dL High 8-23 [facility] Comment on above: Performed By: #### M G, PRCAL, CMPX, LACTIC, CDP #### [address] [address] Exchange Architect: Lew Ugalde MD C diff Ag + Toxinon 09-04-20 Specimen Description .FECES Normal [facility] Comment on above: Performed By: #### F LDCT #### [address] [address] Exchange Architect: Lew Ugalde MD CBC with Diffon 09-04-2023 Abs. Basophil 0.05 k/uL Normal 0.00-0.20 [facility] Comment on above: Performed By: #### M G, PRCAL, CMPX, LACTIC, CDP #### [address] [phone] Exchange Architect: Lew Ugalde MD Abs.Imm.Granulocyte 0.05 k/uL Normal 0.00-0.30 [facility] Comment on above: Performed By: #### M G, PRCAL, CMPX, LACTIC, CDP #### [address] [address] Exchange Architect: Lew Ugalde MD Abs.Neutrophil (Seg) 8.01 k/uL Normal 1.50-8.10 [facility] Comment on above: Performed By: #### M G, PRCAL, CMPX, LACTIC, CDP #### [address] [address] Exchange Architect: Lew Ugalde MD Basophils/100 WBC (Bld) 0 % Normal 0-2 [facility] Comment on above: Performed By: #### M G, PRCAL, CMPX, LACTIC, CDP #### [place] [address] Exchange Architect: Lew Ugalde MD Eosinophils (Bld) [#/Vol] 0.34 10*3/uL Normal 0.00-0.44 [facility] Comment on above: Performed By: #### M G, PRCAL, CMPX, LACTIC, CDP #### [address] [address] Exchange Architect: Lew Ugalde MD Eosinophils/100 WBC (Bld) 3 % Normal 1-4 [facility] Comment on above: Performed By: #### M G, PRCAL, CMPX, LACTIC, CDP #### [place] [address] Exchange Architect: Lew Ugalde MD Erythrocyte distribution width (RBC) [Ratio] 17.0 % High 11.8-14.4 [facility] Comment on above: Performed By: #### M G, PRCAL, CMPX, LACTIC, CDP #### [address] [address] Exchange Architect: Lew Ugalde MD Hematocrit (Bld) [Volume fraction] 26.0 % Low 36.3-47.1 [facility] Comment on above: Performed By: #### M G, PRCAL, CMPX, LACTIC, CDP #### [address] [address] Exchange Architect: Lew Ugalde MD Hemoglobin (Bld) [Mass/Vol] 8.2 g/dL Low 11.9-15.1 [facility] Comment on above: Performed By: #### M G, PRCAL, CMPX, LACTIC, CDP #### [address] [address] Exchange Architect: Lew Ugalde MD Immature granulocytes/100 WBC (Bld) 0 % Normal 0 [facility] Comment on above: Performed By: #### M G, PRCAL, CMPX, LACTIC, CDP #### [address] [address] Exchange Architect: Lew Ugalde MD Lymphocytes (Bld) [#/Vol] 2.26 10*3/uL Normal 1.10-3.70 [facility] Comment on above: Performed By: #### M G, PRCAL, CMPX, LACTIC, CDP #### [facility] [employer] [address] [place] [phone] Exchange Architect: Lew Ugalde MD Lymphocytes/100 WBC (Bld) 20 % Low 24-43 [facility] Comment on above: Performed By: #### M G, PRCAL, CMPX, LACTIC, CDP #### [facility] [employer] [address] [place] [phone] Exchange Architect: Lew Ugalde MD MCH (RBC) [Entitic mass] 33.1 pg Normal 25.2-33.5 [facility] Comment on above: Performed By: #### M G, PRCAL, CMPX, LACTIC, CDP #### [facility] [employer] [address] [place] [phone] Exchange Architect: Lew Ugalde MD MCHC (RBC) [Mass/Vol] 31.5 g/dL Normal 28.4-34.8 [facility] Comment on above: Performed By: #### M G, PRCAL, CMPX, LACTIC, CDP #### [address] [address] Exchange Architect: Lew Ugalde MD MCV (RBC) [Entitic vol] 104.8 fL High 82.6-102.9 [facility] Comment on above: Performed By: #### M G, PRCAL, CMPX, LACTIC, CDP #### [address] [address] Exchange Architect: Lew Ugalde MD Monocytes (Bld) [#/Vol] 0.80 10*3/uL Normal 0.10-1.20 [facility] Comment on above: Performed By: #### M G, PRCAL, CMPX, LACTIC, CDP #### [address] [address] Exchange Architect: Lew Ugalde MD Monocytes/100 WBC (Bld) 7 % Normal 3-12 [facility] Comment on above: Performed By: #### M G, PRCAL, CMPX, LACTIC, CDP #### [address] [address] Exchange Architect: Lew Ugalde MD Neutrophil (Seg) 70 % High 36-65 [facility] Comment on above: Performed By: #### M G, PRCAL, CMPX, LACTIC, CDP #### [address] [address] Exchange Architect: Lew Ugalde MD NRBC Automated 0.0 per 100 WBC Normal 0.0 [facility] Comment on above: Performed By: #### M G, PRCAL, CMPX, LACTIC, CDP #### [address] [address] Exchange Architect: Lew Ugalde MD Platelet mean volume (Bld) [Entitic vol] 9.4 fL Normal 8.1-13.5 [facility] Comment on above: Performed By: #### M G, PRCAL, CMPX, LACTIC, CDP #### [address] [address] Exchange Architect: Lew Ugalde MD Platelets (Bld) [#/Vol] 305 10*3/uL Normal 138-453 [facility] Comment on above: Performed By: #### M G, PRCAL, CMPX, LACTIC, CDP #### [address] [address] Exchange Architect: Lew Ugalde MD RBC (Bld) [#/Vol] 2.48 10*6/uL Low 3.95-5.11 [facility] Comment on above: Performed By: #### M G, PRCAL, CMPX, LACTIC, CDP #### [address] [address] Exchange Architect: Lew Ugalde MD RBC morphology finding Nom (Bld) ANISOCYTOSIS PRESENT Normal [facility] Comment on above: Result Comment: MACR OCYTOSIS PRESENT Performed By: #### M G, PRCAL, CMPX, LACTIC, CDP #### [address] [address] Exchange Architect: Lew Ugalde MD WBC (Bld) [#/Vol] 11.5 10*3/uL High 3.5-11.3 [facility] Comment on above: Performed By: #### M G, PRCAL, CMPX, LACTIC, CDP #### [address] [address] Exchange Architect: Lew Ugalde MD Hgb/Hcton 09-04-2023 Hematocrit (Bld) [Volume fraction] 24.2 % Low 36.3-47.1 [facility] Comment on above: Performed By: #### C DP, MG, BMPX #### [address] [address] Exchange Architect: Lew Ugalde MD Hemoglobin (Bld) [Mass/Vol] 8.0 g/dL Low 11.9-15.1 [facility] Comment on above: Performed By: #### C DP, MG, BMPX #### [address] [address] Exchange Architect: Lew Ugalde MD Iron Binding Cap.on 09-04-20 23 % Fe Saturation 20 % Normal 20-55 [facility] Comment on above: Performed By: #### M G, PRCAL, CMPX, LACTIC, CDP #### [address] [address] Exchange Architect: Lew Ugalde MD Iron [Mass/Vol] 52 ug/dL Normal 37-145 [facility] Comment on above: Performed By: #### M G, PRCAL, CMPX, LACTIC, CDP #### [address] [address] Exchange Architect: Lew Ugalde MD Total Fe Binding Cap 262 ug/dL Normal 250-450 [facility] Comment on above: Performed By: #### M G, PRCAL, CMPX, LACTIC, CDP #### [address] [address] Exchange Architect: Lew Ugalde MD Unbound Fe Bind Cap 210 ug/dL Normal 112-347 [facility] Comment on above: Performed By: #### M G, PRCAL, CMPX, LACTIC, CDP #### [address] [address] Exchange Architect: Lew Ugalde MD Stool PCR [place] 09-04-20 23 Specimen Description .FECES Normal [facility] Comment on above: Performed By: #### M G, PRCAL, CMPX, LACTIC, CDP #### [email or web address] [address] [place] [address] Exchange Architect: Lew Ugalde MD Basic Metabolic Panelon 10-13 Anion gap [Moles/Vol] 15.1 mmol/L High 6.0-15.[address] [facility] Comment on above: Performed By: #### B MP #### [facility] [address] Calcium [Mass/Vol] 8.5 mg/dL Normal 8.2-10.2 [facility] Comment on above: Performed By: #### B MP #### [facility] [address] Chloride [Moles/Vol] 99 mmol/L Normal 95-114 [facility] Comment on above: Performed By: #### B MP #### [facility] [address] CO2 [Moles/Vol] 24.2 mmol/L Normal 22.0-30.0 [facility] Comment on above: Performed By: #### B MP #### [facility] [address] [place] [address] [place] Creatinine [Mass/Vol] 6.33 mg/dL High 0.44-1.03 [facility] Comment on above: Performed By: #### B MP #### [facility] [address] [place] [address] [place] Creatinine Clr Calc Pharmacy 8.51 [facility] Comment on above: Result Comment: PERF ORMED BY: [place] [address] PATHOLOGIST FRONTEND ENGINEER MELINDA HILLS M.D. Performed By: #### B MP #### [place] [address] [place] Estimated GFR ( Leigh Ann 8 [facility] Comment on above: Result Comment: GFR estimated reference range: According to KDOQI guidelines, <60 ml/min/1.73m2 is sufficient to diagnose a patient with chronic kidney disease. Performed By: #### B MP #### [facility] [address] [place] [address] [place] Estimated GFR (Non- Am 7 Normal [facility] Comment on above: Performed By: #### B MP #### [facility] [address] Glucose [Mass/Vol] 88 mg/dL Normal 70-100 [facility] Comment on above: Result Comment: Harlan Glucose Reference Range is dependent on time and content of last meal. Glucose of more than 200 mg/dL in a nonstressed, ambulatory subject supports the diagnosis of Diabetes Mellitus. ADA recommended reference range Performed By: #### B MP #### [facility] [address] Potassium [Moles/Vol] 3.3 mmol/L Low 3.5-5.1 [facility] Comment on above: Performed By: #### B MP #### [facility] [address] Sodium [Moles/Vol] 135 mmol/L Low 136-146 [facility] Comment on above: Performed By: #### B MP #### [facility] [address] [place] [address] [place] Urea nitrogen [Mass/Vol] 60 mg/dL High 9-23 [facility] Comment on above: Performed By: #### B MP #### [place] [address] [place] Creatinine and Glomerular fi ltration rate.predicted panel (S/P/Bld)Ordered By: Humza Shearer on 10-27-2022 Creatinine [Mass/Vol] 6.33 mg/dL 0.44-1.03 [facility] Estimated glomerular filtrat ion rate (GFR) non- AmericanOrdered By: Humza Shearer on 10-27-2022 GFR/1.73 sq M.predicted among non-blacks MDRD (S/P/Bld) [Vol rate/Area] 7 mL/Min [facility] Bc 10-27-2022 L - -------- Specimen: [id number] Received: 10/27/22 Status: KATHARINA Kingsley Num: [id number] Spec Type: Surgical Subm Dr: Humza Shearer MD Tissues: A Gastric Biopsy (GASTRIC BX) B Colon Biopsy (RANDOM COLON) Procedures: HE/4, Gross/Micro L4/2, H PYLORI -------- Age/ Patient Sex Location Account Attending Physician -------- Isa Kaur 67/F [id number] Humza Shearer MD -------- SPEC NUM: [id number] RECD: 10/27/22 STATUS: KATHARINA KINGSLEY NUM: [id number] ALAN: 10/27/22- [facility] DR: Humza Shearer MD ENTERED: 10/27/22 [facility] DR: SPEC TYPE: Surgical DEPT: S ORDERED: HE/4, Gross/Micro L4/2, H PYLORI ORDERED: HE/4, Gross/Micro L4/2, H PYLORI Supplemental Report Addendum 1 Entered: 10/31/22 A. Immunohistochemical stain for helicobacter pylori is negative. Addendum Signed (signature on file) Miracle Rodriguez MD 10/31/221328 -------- Pathological Diagnosis A. Stomach, biopsy: - Mild chronic inactive gastritis in the background of reactive gastropathic changes. - No intestinal metaplasia or dysplasia seen. - Result of Helicobacter pylori IHC will follow in a supplemental report. B. Colon, random, biopsy: - Benign colonic mucosa with a lymphoid aggregate. - No microscopic colitis, active colitis, granuloma, architectural distortion or dysplasia seen. -------- Specimen: [id number] Received: 10/27/22 Status: KATHARINA Kingsley Num: [id number] Spec Type: Surgical Subm Dr: Humza Shearer MD Tissues: A Gastric Biopsy (GASTRIC BX) B Colon Biopsy (RANDOM COLON) Procedures: HE/4, Gross/Micro L4/2, H PYLORI -------- Patient: Isa Kaur [id number] (Continued) -------- Specimen: [id number] Received: 10/27/22 (Continued) Signed (signature on file) Willy Lipscomb MD 10/28/22 1251 -------- Specimen: [id number] Received: 10/27/22 Status: KATHARINA Kingsley Num: [id number] Spec Type: Surgical Subm Dr: Humza Shearer MD Tissues: A Gastric Biopsy (GASTRIC BX) B Colon Biopsy (RANDOM COLON) Procedures: HE/Silvano, Gross/Micro L4/2, H PYLORI -------- Patient: Isa Kaur [id number] (Continued) -------- Specimen: [id number] Received: 10/27/22 (Continued) Clinical Information Abdominal pain, weight loss, diarrhea, rule out H. pylori for IHC, rule out microscopic colitis Gross Description A. Received in formalin labeled with the patient's name, number and gastritis biopsy, rule out H. pylori for IHSS is one fragment of soft muñiz tissue measuring 0.5 x 0.3 x 0.2 cm. Entirely submitted in one cassette labeled A1. B. Received in formalin labeled with the patient's name, number and random colon rule out microcolitis are three fragments of soft muiñz tissue averaging 0.2 cm. Entirely submitted in one cassette labeled B1. Microscopic Description A. Two glass slides with H E stained material have been examined. The microscopic findings support the above pathologic diagnosis. B. Two glass slides with H E stained material have been examined. The microscopic findings support the above pathologic diagnosis. CPT Codes 37347?2 -------- -------- Specimen: [id number] Received: 10/27/22 Status: KATHARINA Kingsley Num: [id number] Spec Type: Surgical Subm Dr: Humza Shearer MD Tissues: A Gastric Biopsy (GASTRIC BX) B Colon Biopsy (RANDOM COLON) Procedures: HE/4, Gross/Micro L4/2, H PYLORI -------- Patient: Isa Kaur [id number] (Continued) -------- Signed (signature on file) Willy Lipscomb MD 10/28/22 1251 Normal [facility] No Panel InformationOrdered By: Humza Shearer on 10-27-2022 Estimated GFR () 8 mL/Min [facility] Comment on above: GFR estimated refere nce range: According to KDOQI guidelines, <60 ml/min/1.73m2 is sufficient to diagnose a patient with chronic kidney disease. Pharmacy Creatinine Clearance (Chem 8.51 [facility] Serum or plasma anion gap de terminationOrdered By: Humza Shearer on 10-27-2022 Anion gap [Moles/Vol] 15.1 mmol/L 6.0-15.[address] [facility] Serum or plasma calcium grady urement (mass/volume)Ordered By: Humza Shearer on 10-27-2022 Calcium [Mass/Vol] 8.5 mg/dL 8.2-10.2 [facility] Serum or plasma chloride cesia surement (moles/volume)Ordered By: Humza Shearer on 10-27-2022 Chloride [Moles/Vol] 99 mmol/L 95-114 [facility] Serum or plasma glucose grady urement (mass/volume)Ordered By: Humza Shearer on 10-27-2022 Glucose [Mass/Vol] 88 mg/dL 70-100 [facility] Comment on above: ADA recommended refe rence rangeRandom Glucose Reference Range is dependent on time and content of last meal. Glucose of more than 200 mg/dL in a nonstressed, ambulatory subject supports the diagnosis of Diabetes Mellitus. Serum or plasma potassium me asurement (moles/volume)Ordered By: Humza Shearer on 10-27-2022 Potassium [Moles/Vol] 3.3 mmol/L 3.5-5.1 [facility] Serum or plasma sodium measu rement (moles/volume)Ordered By: Humza Shearer on 10-27-2022 Sodium [Moles/Vol] 135 mmol/L 136-146 [facility] Serum or plasma total carbon dioxide measurement (moles/volume)Ordered By: Humza Shearer on 10-27-2022 CO2 [Moles/Vol] 24.2 mmol/L 22.0-30.0 [facility] Serum or plasma urea nitroge n measurement (mass/volume)Ordered By: Humza Shearer on 10-27-2022 Urea nitrogen [Mass/Vol] 60 mg/dL 9-23 [facility] COVID-19 Antigenon 2 COVID-19 Antigen Healthcare Worker?: N Reference Range: Negative Negative results, from patients with symptom onset beyond five days, should be treated as presumptive and confirmation with a molecular assay, if necessary, for patient management, may be performed. Negative results do not rule out COVID-19 and should not be used as the sole basis for treatment or patient management decisions, including infection control decisions. Negative results should be considered in the context of a patient's recent exposures, history and the presence of clinical signs and symptoms consistent with COVID-19. The Brenda SARS Antigen MARILIA does not differentiate between SARS-CoV and SARS-CoV-2. This test was developed and its performance characteristic determined by [facility] and validated at [facility]. This test has not been FDA cleared or approved. This test has been authorized by FDA under an Emergency Use Authorization (EUA). This test has been validated in accordance with the FDA's Guidance Document (Policy for Diagnostics Testing in Laboratories Certified to Perform High Complexity Testing under CLIA prior to Emergency Use Authorization for Coronavirus Disease-2019 during the Public Health Emergency) issued on February 13, 2020. This test is only authorized for the duration of time the declaration that circumstances exist justifying the authorization of the emergency use of in vitro diagnostic tests for detection of SARS-CoV-2 virus and/or diagnosis of COVID-19 infection under section 564(b)(1) of the Act, 21 U.S.C. 360bbb-3(b)(1), unless the authorization is terminated or revoked sooner. SARS-CoV+SARS-CoV-2 (COVID-19) Ag [Presence] in Respiratory specimen by Rapid immunoassay Negative for SARS Antigen by MARILIA PERFORMED BY: [place] [address] PATHOLOGIST FRONTEND ENGINEER MELINDA HILLS M.D. Normal [facility] Comment on above: Performed By: #### C OVID-19 BRENDA, SOFIANEG #### [address] COVID-19 SOFIAOrdered By: Anne Marie Shearer on 10-25-2022 SARS-CoV+SARS-CoV-2 (COVID-19) Ag IA.rapid Ql (Resp) Negative Negative [facility] Comment on above: This is a duplicate Brenda SARS Antigen (MARILIA) result to be used for statistical tracking purpose only. No Panel InformationOrdered By: Humza Shearer on 10-25-2022 SARS Antigen (LFIA) [facility] Brenda Ag Negativeon 10-25-20 Brenda Ag Negative Negative Normal Negative [facility] Comment on above: Result Comment: This is a duplicate Brenda SARS Antigen (MARILIA) result to be used for statistical tracking purpose only. PERFORMED BY: [place] [address] PATHOLOGIST FRONTEND ENGINEER MELINDA HILLS M.D. Performed By: #### C OVID-19 BRENDA, SOFIANEG #### [facility] [address] [place], [place] [id number] [facility] COVID-19 Antigenon 2 COVID-19 Antigen Healthcare Worker?: N Reference Range: Negative Negative results, from patients with symptom onset beyond five days, should be treated as presumptive and confirmation with a molecular assay, if necessary, for patient management, may be performed. Negative results do not rule out COVID-19 and should not be used as the sole basis for treatment or patient management decisions, including infection control decisions. Negative results should be considered in the context of a patient's recent exposures, history and the presence of clinical signs and symptoms consistent with COVID-19. The Brenda SARS Antigen MARILIA does not differentiate between SARS-CoV and SARS-CoV-2. This test was developed and its performance characteristic determined by [employer] and validated at [facility]. This test has not been FDA cleared or approved. This test has been authorized by FDA under an Emergency Use Authorization (EUA). This test has been validated in accordance with the FDA's Guidance Document (Policy for Diagnostics Testing in Laboratories Certified to Perform High Complexity Testing under CLIA prior to Emergency Use Authorization for Coronavirus Disease-2019 during the Public Health Emergency) issued on February 13, 2020. This test is only authorized for the duration of time the declaration that circumstances exist justifying the authorization of the emergency use of in vitro diagnostic tests for detection of SARS-CoV-2 virus and/or diagnosis of COVID-19 infection under section 564(b)(1) of the Act, 21 U.S.C. 360bbb-3(b)(1), unless the authorization is terminated or revoked sooner. SARS-CoV+SARS-CoV-2 (COVID-19) Ag [Presence] in Respiratory specimen by Rapid immunoassay Negative for SARS Antigen by MARILIA PERFORMED BY: [place] [address] PATHOLOGIST FRONTEND ENGINEER MELINDA HILLS M.D. [facility] Comment on above: Performed By: #### C OVID-19 BRENDA, SOFIANEG #### [place] [id number] [facility] COVID-19 SOFIAOrdered By: Anne Marie taurus Janki on 10-10-2022 SARS-CoV+SARS-CoV-2 (COVID-19) Ag IA.rapid Ql (Resp) Negative Negative [facility] Comment on above: This is a duplicate Brenda SARS Antigen (MARILIA) result to be used for statistical tracking purpose only. No Panel InformationOrdered By: Humza Shearer on 10-10-2022 SARS Antigen (LFIA) [facility] Brenda Ag Negativeon 10-10-20 22 Brenda Ag Negative Negative Normal Negative [facility] Comment on above: Result Comment: This is a duplicate Brenda SARS Antigen (MARILIA) result to be used for statistical tracking purpose only. PERFORMED BY: [facility] [address] [place] [address] PATHOLOGIST FRONTEND ENGINEER MELINDA HILLS M.D. Performed By: #### C OVID-19 BRENDA, SOFIANEG #### [address] CSPINE WO CONon 1 CT CSPINE WO CON EXAMINATION: CT CSPINE WO CON HISTORY: Neck pain COMPARISON: No relevant comparison available. TECHNIQUE: Axial, Coronal, and Sagittal images were created without IV contrast. Dose reduction techniques were achieved by using automated exposure control and/or adjustment of mA and/or kV according to patient size and/or use of iterative reconstruction technique. FINDINGS: VERTEBRAL BODIES: Normal alignment with no acute fracture. 1 to 2 mm anterolisthesis of C4 in relation to C5. Minimal degenerative spondylosis and facet osteoarthropathy. Calcification of the posterior longitudinal ligament. FACET JOINTS: No disruption or abnormal widening. CERVICAL DISCS: Intervertebral spacers C5-C6 and C6-C7 CENTRAL CANAL: No spinal stenosis or evidence of hemorrhage. PARASPINAL AREA: No visible mass. IMPRESSION: Intervertebral spacers C5-C6 and C6-C7 No acute abnormality Electronically authenticated by: CARLENE GARCIA Date: 2021-05-07 13:57 Normal [facility] XR LSPINE 2_3 VIEWSon 2019 XR LSPINE 2_3 VIEWS Lumbar spine 3 views Clinical: Back pain. COMPARISON: 10/16/2013. Lumbar vertebral body heights are well-maintained. There is partial sacralization of the L5 level on the left. Disc spaces are unremarkable. Minimal spurring is noted involving the lumbar vertebral bodies. No fracture or subluxation is noted. Diffuse calcifications are noted involving the abdominal aorta. IMPRESSION: 1. No acute bony antimony lumbar spine. 2. Early spondylosis of the spine. 3. Partial sacralization of the L5 level on the left. Electronically authenticated by: CARLENE SAHU Date: 2020-08-02 12:07 Normal [facility] Vital Signs Date Time Vital Sign Value Performing Clinician Faci lity 03-11-2024 15:40-0400 Body temperature 97 [degF] Jet Moon MD Work Phone: [facility] 03-11-2024 15:40-0400 Diastolic blood pressure 50 mm[Hg] Jet Moon MD Work Phone: [facility] 03-11-2024 15:40-0400 Heart rate 78 /min Jet Moon MD [email or web address] 03-11-2024 15:40-0400 Respiratory rate 24 /min Jet Moon MD Work Phone: [facility] 03-11-2024 15:40-0400 SaO2% (BldA) [Mass fraction] 98 % Jet Moon MD Work Phone: [facility] 03-11-2024 15:40-0400 Systolic blood pressure 95 mm[Hg] Jet Moon MD [email or web address] 03-11-2024 14:01-0400 Body height 162.6 cm Jet Moon MD Work Phone: [facility] 03-11-2024 14:01-0400 Body mass index (BMI) [Ratio] 24.88 kg/m2 Jet Moon MD Work Phone: [facility] 03-11-2024 14:01-0400 Body weight 65.77 kg Jet Moon MD Work Phone: [facility] 10-27-2022 08:25-0500 Diastolic blood pressure 77 mm[Hg] MD Wesley Don Work Phone: [facility] 10-27-2022 08:25-0500 Heart rate 64 /min MD Wesley Don Work Phone: [facility] 10-27-2022 08:25-0500 Respiratory rate 18 /min MD Wesley Don Work Phone: [facility] 10-27-2022 08:25-0500 SaO2% (BldA) [Mass fraction] 98 % MD Wesley Don Work Phone: [facility] 10-27-2022 08:25-0500 Systolic blood pressure 129 mm[Hg] MD Wesley Don Work Phone: [facility] 10-27-2022 06:37-0500 Body height 162.56 cm MD Wesley Don Work Phone: [facility] 10-27-2022 06:37-0500 Body temperature 98.1 [degF] MD Wesley Don Work Phone: [facility] 10-27-2022 06:37-0500 Body weight 72.12 kg MD Wesley Don Work Phone: [facility] Encounters Encounter Date Encounter Type Care Provider Facility Start: 04-04-2024 End: 04-04-2024 ambulatory WESLEY DON Not Available Start: 03-25-2024 End: 03-25-2024 ambulatory WESLEY rios Start: 03-22-2024 End: 03-24-2024 Evaluation and management of inpatient LONI S [facility] Start: 03-22-2024 End: 03-23-2024 Emergency department patient visit TERESA TRIPP [facility] Start: 03-11-2024 End: 03-11-2024 [facility] Start: 03-11-2024 End: 03-11-2024 Subsequent hospital visit by physician Jet Moon MD Work Phone: [facility] Comment on above: Chronic diarrhea Start: 02-27-2024 End: 03-03-2024 ambulatory WESLEY RASHI [facility] Start: 02-26-2024 End: 02-26-2024 Emergency department patient visit WESLEY DON [facility] Start: 02-01-2024 Telephone encounter [facility] Comment on above: Referral - Kidney Tx p Start: 01-26-2024 End: 01-29-2024 ambulatory WESLEY MARKHAM [facility] Start: 01-26-2024 [facility] above: Referral - Kidney Tx p Start: 01-19-2024 End: 01-22-2024 ambulatory [facility] Start: 01-19-2024 End: 01-21-2024 Subsequent hospital visit by physician Jet Moon MD Work Phone: [facility] Comment on above: Chronic hepatitis C without hepatic coma (HCC) Start: 01-09-2024 End: 01-14-2024 ambulatory [address]ES[address] [facility] Start: 10-31-2023 End: 11-01-2023 ambulatory WESLEY DON Not Available Start: 10-20-2023 End: 10-24-2023 Evaluation and management of inpatient JEWEL A ALEJANDRO [facility] Start: 09-04-2023 End: 09-07-2023 Evaluation and management of inpatient BARBARA HASKINS [facility] Start: 10-27-2022 Telephone encounter [facility] Start: 10-27-2022 End: 10-27-2022 ambulatory Wesley Don Facility:[facility] Start: 10-27-2022 End: 10-27-2022 Admission to same day surgery center MD Wesley Don Work Phone: [facility] Start: 10-27-2022 End: 10-27-2022 ambulatory MD Wesley Don Work Phone: [facility] Work Phone: Start: 10-25-2022 End: 10-25-2022 ambulatory Humza Shearer Facility:[facility] Start: 10-25-2022 End: 10-25-2022 ambulatory MD Wesley Don Work Phone: [facility] Work Phone: Start: 10-25-2022 End: 10-25-2022 Patient encounter procedure MD Wesley Don Work Phone: [facility] Start: 10-10-2022 End: 10-10-2022 ambulatory Humza Shearer Facility:[facility] Start: 10-10-2022 End: 10-10-2022 Patient encounter procedure MD Wesley Don Work Phone: [facility] Start: 05-07-2021 End: 05-07-[address] NADEEN WILSON Facility:[facility] Start: 08-02-2020 End: 08-02-[address] WESLEY DON Facility:[facility] Procedures Date Procedure Procedure Detail Performing Clinician Start: 01-19-2024 Ultrasound elastography parenchyma Jennifer Moon MD Work Phone: Start: 01-19-2024 Us abdominal real time w/image limited Jet Moon MD Work Phone: Start: 10-23-2023 Colonoscopy Jet Moon MD Work Phone: Start: 10-27-2022 Esophagogastroduodenoscopy MD Wesley arriaga Work Phone: SARS Antigen (LFIA) MD Wesley Don Work Phone: SARS Antigen (LFIA) MD Wesley Don Work Phone: Plan of Treatment Date Care Activity Detail Author Start: 10-23-2033 Screening for malignant neoplasm of colon [facility] Start: 10-21-2024 Screening for malignant neoplasm of colon FIT/FOBT: Average risk [facility] Start: 06-13-2024 Influenza vaccination Flu vaccine (Season Ended) [facility] Start: 04-04-2024 End: 04-04-2024 Patient encounter procedure 04/04/2024 12:30 PM EDT Office Visit [facility] [address] [id number] [place] [address] [place] [address] 3 month f/u; f/u US, labs, colonoscopy [facility] Comment on above: 3 month f/u; f/u US, labs, colonoscopy Start: 03-11-2024 End: 03-11-2024 Colonoscopy flx dx w/collj spec when pfrmd COLONOSCOPY DIAGNOSTIC Chronic diarrhea 03/11/2024 2:41 PM EDT [facility] Start: 01-26-2024 End: 01-26-2024 Patient encounter procedure 01/26/2024 3:[address] [facility] CT Scan [address] [place], [place] [id number] [place] [address] [place] [address] EPIC/ PT [facility] CT Scan Comment on above: EPIC/ PT Start: 01-23-2024 End: 01-23-2024 Admission to same day surgery center 01/23/2024 2:15 PM EDT - 01/23/2024 2:45 PM EDT Surgery [facility] [address] [place] [address] [place] [address] [place] [address] COLONOSCOPY DIAGNOSTIC [facility] Comment on above: COLONOSCOPY DIAGNOSTIC Start: 01-23-2024 End: 01-23-2024 Colonoscopy flx dx w/collj spec when pfrmd COLONOSCOPY DIAGNOSTIC Chronic diarrhea 01/23/2024 2:15 PM EDT [facility] Start: 01-23-2024 Subsequent hospital visit by physician 01/23/2024 2:15 PM EDT Hospital Encounter [facility] [address] [place] [address] [place] [address] [place] [address] [facility] Start: 11-13-2023 Advance Directive Discussion Advance Directive Discussion [facility] Start: 11-13-2023 Annual Wellness Visit (Medicare Advantage) Annual Wellness Visit (Medicare Advantage) [facility] Start: 11-13-2023 Depression Assessment Depression Assessment [facility] Start: 07-14-2023 Covid-19 Vaccine () Covid-19 Vaccine () [facility] Start: 07-14-2023 Influenza vaccination Influenza Vaccine (#1) [facility] Start: 06-13-2023 Influenza vaccination Flu vaccine (#1) [facility] Start: 10-27-2022 [facility] Start: 2021 Pneumococcal Vaccine: 65+ (1 of 1 - PCV) Pneumococcal Vaccine: 65+ (1 of 1 - PCV) [facility] Start: 2021 Screening for osteoporosis Bone Density Screening [facility] Start: 2016 Respiratory Syncytial Virus (RSV) or age 60 yrs+ (1 - 1-dose 60+ series) Respiratory Syncytial Virus (RSV) or age 60 yrs+ (1 - 1-dose 60+ series) [facility] Start: 2016 RSV Vaccine (1 - 1-dose 60+ series) RSV Vaccine (1 - 1-dose 60+ series) [facility] Start: 2011 Screening for osteoporosis DEXA (modify frequency per FRAX score) [facility] Start: 2006 Screening for malignant neoplasm of breast Breast cancer screen [email or web address] Start: 2006 Screening for malignant neoplasm of lung Low dose CT lung screening &/or counseling [facility] Start: 2006 Shingles vaccine (1 of 2) Shingles vaccine (1 of 2) [facility] Start: 2006 Shingrix Vaccine (1 of 2) Shingrix Vaccine (1 of 2) [facility] Start: 2001 Diabetes Screening Diabetes Screening [facility] Start: 2001 Lipid panel Lipid Screening [facility] Start: 2001 Screening for malignant neoplasm of colon [facility] Start: 1996 Lipid panel Lipids [facility] Start: 1996 Screening for malignant neoplasm of breast Mammogram Screening [facility] Start: 1976 Hepatitis B vaccine (1 of 3 - Risk Dialysis 4-dose series) Hepatitis B vaccine (1 of 3 - Risk Dialysis 4-dose series) [facility] Start: 1975 DTaP/Tdap/Td vaccine (1 - Tdap) DTaP/Tdap/Td vaccine (1 - Tdap) [facility] Start: 1975 Hepatitis A vaccine (1 of 2 - Risk 2-dose series) Hepatitis A vaccine (1 of 2 - Risk 2-dose series) [facility] Start: 1975 Urine microalbumin profile DTaP,Tdap,Td Vaccine (1 - Tdap) [facility] Start: 1968 Depression Screen Depression Screen [facility] Start: 1962 Pneumococcal 65+ years Vaccine (1 - PCV) Pneumococcal 65+ years Vaccine (1 - PCV) [facility] Start: 1962 Pneumococcal 65+ years Vaccine (1 of 2 - PCV) Pneumococcal 65+ years Vaccine (1 of 2 - PCV) [facility] Start: 1956 COVID-19 Vaccine (#1) COVID-19 Vaccine (#1) [facility] Oxygen therapy [Minimum Data Set] Initiate Oxygen Therapy Protocol Respiratory Care Routine As Needed until discontinued starting 03/11/2024 [facility] Work Phone: Comment on above: As Needed until discontinued starting Patient Education Hemorrhoids Gastritis [facility] Work Phone: Surgical Pathology Surgical Path ology Lab Routine Chronic diarrhea Release Upon Ordering for 1 Occurrences starting 03/11/2024 [facility] Comment on above: Release Upon Ordering for 1 Occurrences starting 03/11/2024 Payers Date Payer Category Payer Private Health Insurance [id number] 2022 Self-pay [id number] 2018 Medicaid MEDICAID [facility] MEDICAID [id number] 2018-Present [phone] [address] [place] [address] Medicaid [id number] 2018 Medicare MEDICARE MEDICAR E A AND B [id number] 2018-Present [phone] [address] [address] [place] [address] Medicare [id number] 1959 Medicaid [id number] 1959 Medicare [id number] 1959 Unknown [id number] 1956 Unknown [id number] 2.16.840.1.026430.3.579.2.5 93 1956 Unknown [id number] 2.16.840.1.202722.3.579.2.5 93 1956 Unknown [id number] 2.16.840.1.564667.3.579.2.1 73 1956 Unknown [id number] 2.16.840.1.595300.3.579.2.1 76 1956 Unknown [id number] 2.16.840.1.657514.3.579.2.1 76 1956 Unknown [id number] 2.16.840.1.057078.3.579.2.1 76 1956 Unknown [id number] 2.16.840.1.968645.3.579.2.1 76 1956 Unknown [id number] 2.16.840.1.032546.3.579.2.1 76 1956 Unknown [id number] 2.16.840.1.696322.3.579.2.1 76 1956 Unknown [id number] 2.16.840.1.370682.3.579.2.1 286 1956 Unknown [id number] 2.16.840.1.697477.3.579.2.1 75 1956 Unknown [id number] 2.16.840.1.347557.3.579.2.1 75 1956 Unknown [id number] 2.16.840.1.042365.3.579.2.1 75 1956 Unknown [id number] 2.16.840.1.235694.3.579.2.1 286 1956 Unknown [id number] 2.16.840.1.681102.3.579.2.1 286 1956 Unknown [id number] 2.16.840.1.049601.3.579.2.1 286 1956 Unknown [id number] 2.16.840.1.252579.3.579.2.1 286 1956 Unknown [id number] 2.16.840.1.044630.3.579.2.1 259 1956 Unknown [id number] 2.16.840.1.930270.3.579.2.1 259 Medicare [id number] 2.16.840.1.540142.19 Unknown [id number] 2.16.840.1.218351.3.579.2.5 31 Unknown [id number] 2.16.840.1.489804.3.579.2.5 31 Unknown [id number] 2.16.840.1.554198.3.579.2.5 31 Social History Date Type Detail Facility Start: 08-26-2020 End: 10-27-2022 Tobacco smoking status NHIS Smoker (finding) [facility] Start: 1955 Sex Assigned At Female F [facility] Start: 10-20-2023 End: 03-11-2024 Sex Assigned At [employer] Start: 08-29-2011 End: 01-10-2024 Tobacco smoking status NHIS Smokes tobacco daily [employer] History of tobacco use Cigarette Smoker [facility] Start: 10-20-2023 End: 01-10-2024 Cigarettes smoked current (pack per day) - Reported 0.5 [employer] Start: 01-10-2024 End: 03-11-2024 Alcohol intake Current non-drinker of alcohol (finding) [employer] Has the Seanodes, Xenith, or Getui threatened to shut off services in your home in past 12Mo Yes [employer] How often to you hav e a drink containing alcohol? Never [employer] Average Number of Drinks Not on file [employer] (I/We) worried sultana er (my/our) food would run out before (I/we) got money to buy more. Never true [employer] Start: 1955 Sex Assigned At Not on file [facility] Start: 08-29-2011 Tobacco use and exposure Smokeless tobacco non-user [facility] Work Phone: Medical Equipment Procedure Code Equipment Code Equipment Origin al Text Equipment Identifier Dates Cervical total d isc replacement prosthesis, sterile [id number] FDA Start: 08-25-2020 Cervical total d isc replacement prosthesis, sterile [id number] FDA Start: 08-25-2020 Goals Date Patient Goal Desired Activity /State Clinical Notes 10-27-2022 to 03-11-2024 Discharge InstructionsTelephone Encounter - Maracic, Catie - 02/01/2024 3:48 PM EDTTelephone Encounter - Catie Rabago - 01/26/2024 11:43 AM EDT Note Date & Type Note Facility 03-11-2024 Hospital Discharge instructions Ignacio Luz RN - 03/11/2024 3:35 PM EDT Images from the original note were not included. Sedation or General Anesthesia, Adult Care After Refer to this sheet in the next 24 hours. These instructions provide you with information on caring for yourself after your procedure. Your caregiver may also give you more specific instructions. Your treatment has been planned according to current medical practices, but problems sometimes occur. Call your caregiver if you have any problems or questions after your procedure. HOME CARE INSTRUCTIONS Do not participate in any activities that require you to be alert or coordinated. Do not: Drive. Swim. Ride a bicycle. Operate heavy machinery. Cook. Use power tools. Climb ladders. Work at heights. Take a bath. Do not drink alcohol. Do not make any important decisions or sign legal documents. Stay with an adult. The first meal following your procedure should be light and small. Avoid solid foods if you feel sick to your stomach (nauseous) or if you throw up (vomit). Drink enough fluids to keep your urine clear or pale yellow. Only take your usual medicines or new medicines if your caregiver approves them. Only take emcu-lto-evefbkn or prescription medicines for pain, discomfort, or fever as directed by your caregiver. Keep all follow-up appointments as directed by your caregiver. SEEK IMMEDIATE MEDICAL CARE IF: You are not feeling normal or behaving normally after 24 hours. You have persistent nausea and vomiting. You are unable to drink fluids or eat food. You have difficulty urinating. You have difficulty breathing or speaking. You have blue or zuniga skin. There is difficulty waking or you cannot be woken up. You have heavy bleeding, redness, or a lot of swelling where the sedative or anesthesia entered your skin (intravenous site). You have a rash. MAKE SURE YOU: Understand these instructions. Will watch your condition. Will get help right away if you are not doing well or get worse. Document Released: 10/30/2006 Document Revised: 04/30/2013 Document Reviewed: 02/27/2013 ExitCare Patient Information 2012 [employer]. Colonoscopy: What to Expect at Home Your Recovery After you have a colonoscopy, you will stay at the clinic for 1 to 2 hours until the medicines wear off. Then you can go home, but you will need to arrange for a ride. Your doctor will tell you when you can eat and do your other usual activities. Your doctor will talk to you about when you will need your next colonoscopy. The results of your test and your risk for colorectal cancer will help your doctor decide how often you need to be checked. After the test, you may be bloated or have gas pains. You may need to pass gas. If a biopsy was done or a polyp was removed, you may have streaks of blood in your stool (feces) for a few days. This care sheet gives you a general idea about how long it will take for you to recover. But each person recovers at a different pace. Follow the steps below to get better as quickly as possible. How can you care for yourself at home? Activity Rest as much as you need to after you go home. You should be able to go back to your usual activities the day after the test. Diet Follow your doctor s directions for eating. Drink plenty of fluids (unless your doctor has told you not to) to replace the fluids that were lost during the colon prep. Do not drink alcohol. Medicines If polyps were removed or a biopsy was done during the test, your doctor may tell you not to take aspirin or other anti-inflammatory medicines, such as ibuprofen (Advil, Motrin) and naproxen (Aleve), for a few days. Other instructions For your safety, you should not drive or operate machinery until the medicine effects are gone and you can think clearly. Your doctor may tell you not to drive or operate machinery until the day after your test. Do not sign legal documents or make major decisions until the medicine effects are gone and you can think clearly. The anesthesia medicine can make it hard for you to fully understand what you are agreeing to. Follow-up care is a doherty part of your treatment and safety. Be sure to make and go to all appointments, and call your doctor if you are having problems. It's also a good idea to know your test results and keep a list of the medicines you take. Call your Doctor if you have any of the following: Passing blood rectally or vomiting blood (it may be red or black). Persistent nausea or vomiting. Severe abdominal or chest pain, not relieved by passing gas. Fever of 100 or more, chills or excessive sweating. Redness or swelling at the IV site. If you experience shortness of breath or severe chest pain, call 911. Where can you learn more? Go to [email or web address] and sign in to your [email or web address] account. Enter E264 in the Search Health Information box to learn more about Colonoscopy: What to Expect at Home. If you do not have an account, please click on the Sign Up Now link. [employer]. Care instructions adapted under license by [employer]. This care instruction is for use with your licensed healthcare professional. If you have questions about a medical condition or this instruction, always ask your healthcare professional. [employer] disclaims any warranty or liability for your use of this information. Content Version: 9.9.897657; Last Revised: January 02, 2013 Colon Polypectomy (Colon Polyp Removal) Definition A colon polypectomy is the removal of polyps from the inside lining of the colon (large intestine). A polyp is a mass of tissue. Some types of polyps have the potential to develop into cancer. Most polyps can be removed during a colonoscopy or sigmoidoscopy . A Colon Polyp 2011 [employer] Reasons for Procedure The purpose of the surgery is to remove a polyp. It is done for cancer prevention. In rare cases, larger polyps can cause troublesome symptoms, such as rectal bleeding, abdominal pain, and bowel irregularities. A polyp removal will relieve these symptoms. Possible Complications Complications are rare, but no procedure is completely free of risk. If you are planning to have a polypectomy, your doctor will review a list of possible complications, which may include: Damage to the colon wall Bleeding Infection Adverse reaction to the sedative Factors that may increase the risk of complications include: Type, size, and location of the polyp Patient factors, such as blood-clotting disorders, substance abuse, or other diseases (eg, obesity , diabetes ) What to Expect Prior to Procedure Your doctor will likely do the following: Physical exam and health history Review of medicines Test your stool for hidden blood (called occult blood ) X-rays an exam that uses small amounts of radiation to make a picture of the inside of the body Barium enema x-ray exam that uses contrast to help better see the colon Diagnostic colonoscopy or sigmoidoscopyexamination of the inside of the intestine with an endoscope Your colon must be completely cleaned before the procedure. Any stool left in the intestine will block the view. This preparation may start several days before the procedure. Follow your doctor's instructions, which may include any of the following cleansing methods: Enemas fluid introduced into the rectum to stimulate a bowel movement Laxativesmedicines that cause you to have soft bowel movements A clear-liquid diet Oral cathartic medicinesa large container of fluid to drink, which stimulates a bowel movement Leading up to your procedure: Talk to your doctor about your medicines. You may be asked to stop taking some medicines up to one week before the procedure, like: Anti-inflammatory drugs (eg, aspirin) Blood thinners, like clopidogrel (Plavix) or warfarin (Coumadin) Iron supplements or vitamins containing iron. The night before, eat a light meal. Do not eat or drink anything after midnight. Wear comfortable clothing. If you have diabetes, ask your doctor if you need to adjust your insulin dose. Arrange for a ride home after the procedure. Anesthesia You will receive a sedative. This will help you relax. You will be drowsy but awake. Description of the Procedure You will be asked to lie on your side or on your back. A scope, a long flexible tube with a camera on the end, will be inserted through the anus. It will be slowly pushed through the rectum to the colon. The scope will also add air to open the colon. Using the scope, the doctor will locate the polyp. The polyp will be snipped off with a wire snare from the scope. In some cases, the polyp may be destroyed with an electric current. The electric current is also used to close the wound and stop bleeding. The polyps will then be removed for lab testing. When the doctor is finished, the scope will be slowly removed. For larger polyps, a laparoscopic surgical procedure may be needed. Special surgical tools will be inserted through small incisions in the abdomen. The tools will be used to locate and remove the polyp. How Long Will It Take? 30-60 minutes Will It Hurt? The special cleaning solution, laxatives, and/or enemas often cause discomfort. During and following the procedure, there is little or no pain. You may feel pressure, bloating, and/or cramping because of the air passed into the colon. This discomfort will go away with the passing of gas. Your doctor may prescribe pain medicine. If not, you can take non-prescription pain relievers for discomfort. Post-procedure Care At the [facility] The polyps will be sent to a lab for testing. At Home Expect a complete recovery within two weeks. To ensure a smooth recovery, be sure to follow your doctor's instructions , which may include: The sedative will make you drowsy. Do not drive, operate machinery, or make important decisions the day of the procedure. Return to your normal diet the same or next day. Avoid tea, coffee, cola drinks, alcohol, and spicy foods for at least 2-3 days following surgery. These can irritate the digestive system. To speed healing, resume normal activities as soon as you feel able. Most people feel well enough by the next day. Ask your doctor when you can participate in any rigorous exercise. Ask your doctor about when it is safe to shower, bathe, or soak in water. You will be scheduled for a follow-up colonoscopy in the future. It will be important to check for recurrence of polyps. Your doctor will discuss the results with you either the day of surgery or the following day. Call Your Doctor After arriving home, contact your doctor if any of the following occurs: Signs of infection, including fever and chills Redness, swelling, increasing pain, excessive bleeding, or discharge from the rectum (Up to cup of blood per day can be expected for up to 3-4 days following your polypectomy.) Black, tarry stools Severe abdominal pain Hard, swollen abdomen Inability to pass gas or stool Cough , shortness of breath, chest pain, or severe nausea or vomiting New, unexplained symptoms In case of emergency, CALL 911 . Last Reviewed: October 2010 Francesca Saul MD Updated: 02/17/2011 Hemorrhoids: Care Instructions Overview Hemorrhoids are swollen veins that develop in the anal canal. Bleeding during bowel movements, itching, and rectal pain are the most common symptoms. Hemorrhoids can be uncomfortable at times, but rarely are they a serious problem. Most of the time, you can treat them with simple changes to your diet and bowel habits. These changes include eating more fiber and not straining to pass stools. Most hemorrhoids don't need surgery or other treatment unless they are very large and painful or bleed a lot. Follow-up care is a doherty part of your treatment and safety. Be sure to make and go to all appointments, and call your doctor if you are having problems. It's also a good idea to know your test results and keep a list of the medicines you take. How can you care for yourself at home? Sit in a few inches of warm water (sitz bath) 3 times a day and after bowel movements. The warm water helps with pain and itching. Put ice on your anal area several times a day for 10 minutes at a time. Put a thin cloth between the ice and your skin. Follow this by placing a warm, wet towel on the area for another 10 to 20 minutes. Take pain medicines exactly as directed. If the doctor gave you a prescription medicine for pain, take it as prescribed. If you are not taking a prescription pain medicine, ask your doctor if you can take an mkyn-uxm-yxzgvir medicine. Keep the anal area clean, but be gentle. Use water and a fragrance-free soap, or use baby wipes or medicated pads such as Tucks. Wear cotton underwear and loose clothing to decrease moisture in the anal area. Eat more fiber. Include foods such as whole-grain breads and cereals, raw vegetables, raw and dried fruits, and beans. Drink plenty of fluids. If you have kidney, heart, or liver disease and have to limit fluids, talk with your doctor before you increase the amount of fluids you drink. Use a stool softener that contains bran or psyllium. You can save money by buying bran or psyllium (available in bulk at most health food stores) and sprinkling it on foods or stirring it into fruit juice. Or you can use a product such as Metamucil or Hydrocil. Practice healthy bowel habits. Go to the bathroom as soon as you have the urge. Avoid straining to pass stools. Relax and give yourself time to let things happen naturally. Do not hold your breath while passing stools. Do not read while sitting on the toilet. Get off the toilet as soon as you have finished. Take your medicines exactly as prescribed. Call your doctor if you think you are having a problem with your medicine. When should you call for help? Call 911 anytime you think you may need emergency care. For example, call if: You pass maroon or very bloody stools. Call your doctor now or seek immediate medical care if: You have increased pain. You have increased bleeding. Watch closely for changes in your health, and be sure to contact your doctor if: Your symptoms have not improved after 3 or 4 days. Where can you learn more? Go to https://www.[employer].net/patientEd and enter F228 to learn more about Hemorrhoids: Care Instructions. Current as of: August 31, 2023 Content Version: 14.0 [employer]. Care instructions adapted under license by [employer]. If you have questions about a medical condition or this instruction, always ask your healthcare professional. [employer] disclaims any warranty or liability for your use of this information. High-Fiber Diet What Is Fiber? Dietary fiber is a form of carbohydrate found in plants that cannot be digested by humans. All plants contain fiber, including fruits, vegetables, grains, and legumes. Fiber is often classified into two categories: soluble and insoluble. Soluble fiber draws water into the bowel and can help slow digestion. Examples of foods that are high in soluble fiber include oatmeal, oat bran, barley, legumes (eg, beans and peas), apples, and strawberries. Insoluble fiber speeds digestion and can add bulk to the stool. Examples of foods that are high in insoluble fiber include whole-wheat products, wheat bran, cauliflower, green beans, and potatoes. Why Follow a High-Fiber Diet? A high-fiber diet is often recommended to prevent and treat constipation , hemorrhoids , diverticulitis , and irritable bowel syndrome . Eating a high-fiber diet can also help improve your cholesterol levels, lower your risk of coronary heart disease , reduce your risk of type 2 diabetes , and lower your weight. For people with type 1 or 2 diabetes, a high-fiber diet can also help stabilize blood sugar levels. How Much Fiber Should I Eat? A high-fiber diet should contain 20-35 grams of fiber a day. This is actually the amount recommended for the general adult population; however, most Americans eat only 15 grams of fiber per day. Digestion of Fiber Eating a higher fiber diet than usual can take some getting used to by your body's digestive system. To avoid the side effects of sudden increases in dietary fiber (eg, gas, cramping, bloating, and diarrhea), increase fiber gradually and be sure to drink plenty of fluids every day. Tips for Increasing Fiber Intake Whenever possible, choose whole grains over refined grains (eg, brown rice instead of white rice, whole-wheat bread instead of white bread). Include a variety of grains in your diet, such as wheat, rye, barley, oats, quinoa, and bulgur. Eat more vegetarian-based meals. Here are some ideas: black hutchinson burgers, eggplant lasagna, and veggie tofu stir-aguirre. Choose high-fiber snacks, such as fruits, popcorn, whole-grain crackers, and nuts. Make whole-grain cereal or whole-grain toast part of your daily breakfast regime. When eating out, whether ordering a sandwich or dinner, ask for extra vegetables. When baking, replace part of the white flour with whole-wheat flour. Whole-wheat flour is particularly easy to incorporate into a recipe. High-Fiber Diet Eating Guide Food Category Foods Recommended Notes Grains Whole-grain breads, muffins, bagels, or lindy bread [place] bread Whole-wheat crackers or crisp breads Whole-grain or bran cereals Oatmeal, oat bran, or grits Wheat germ Whole-wheat pasta and brown rice Read the ingredients list on food labels. Look for products that list whole as the first ingredient (eg, whole-wheat, whole oats). Choose cereals with at least 2 grams of fiber per serving. Vegetables All vegetables, especially asparagus, [place] sprouts, broccoli, [place] sprouts, cabbage, carrots, cauliflower, celery, corn, greens, green beans, green pepper, onions, peas, potatoes (with skin), snow peas, spinach, squash, sweet potatoes, tomatoes, zucchini For maximum fiber intake, eat the peels of fruits and vegetablesjust be sure to wash them well first. Fruits All fruits, especially apples, berries, grapefruits, mangoes, nectarines, oranges, peaches, pears, dried fruits (figs, dates, prunes, raisins) Choose raw fruits and vegetables over juice, cooked, or cannedraw fruit has more fiber. Dried fruit is also a good source of fiber. Milk With the exception of yogurt containing inulin (a type of fiber), dairy foods provide little fiber. Add more fiber by topping your yogurt or cottage cheese with fresh fruit, whole grain or bran cereals, nuts, or seeds. Meats and Beans All beans and peas, especially Garbanzo beans, kidney beans, lentils, [place] beans, split peas, and levine beans All nuts and seeds, especially almonds, peanuts, [place] nuts, cashews, peanut butter, walnuts, sesame and sunflower seeds All meat, poultry, fish, and eggs Increase fiber in meat dishes by adding levine beans, kidney beans, black-eyed peas, bran, or oatmeal. If you are following a low-fat diet, use nuts and seeds only in moderation. Fats and Oils All in moderation Fats and oils do not provide fiber Snacks, Sweets, and Condiments Fruit Nuts Popcorn, whole-wheat pretzels, or trail mix made with dried fruits, nuts, and seeds Cakes, breads, and cookies made with oatmeal or whole-wheat flour Most snack foods do not provide much fiber. Choose snacks with at least 2 grams of fiber per serving. Last Reviewed: January 2011 Jennifer Bronson MS, MPH, RD Updated: 02/08/2011 documented in this encounter [facility] 02-01-2024 Miscellaneous Notes Second call regarding kidney transplant eval. Unable to reach patient by phone, left voicemail for pt to call back. documented in this encounter [facility] 01-26-2024 Miscellaneous Notes First call regarding kidney transplant referral. Unable to reach patient by phone, left voicemail for patient to call our office to start intake process. documented in this encounter [facility] 10-27-2022 Procedure note [facility] Evaluation note No assessment information adry madrid [facility] Work Phone: Evaluation note No Information [facility] Other Evaluation note Diagnosis Chronic hepatitis C without hepatic coma (HCC) Chronic diarrhea Diarrhea [facility] Diagnosis Chronic diarrhea Diarrhea documented in this encounter [facility] HEALTHHistory and physical note Author Humza Shearer [facility] October 27, 2022 7:42am Note Date/Time October 27, 2022 7:42am [facility] [address] [place] [address] Gastroenterology H&P Signed Patient: Isa Kaur MR#: [id number] : 1955 Acct:[id number] Age/Sex: 67 / F Adm Date: 2 Loc: Room: Type: [facility] Attending Dr: Humza Shearer MD Copies to: MD Wesley Barr MD~ Date of Service: 10/27/2022 HISTORY & PHYSICAL: Patient's history with special attention to the cardiovascular, pulmonary systems and the current problem was reviewed with the patient immediately prior to the procedure. Present medications and doses reviewed in the EMR. Allergies and pertinent laboratory tests were also reviewedat this time in the EMR. The physical examination, as below, was then performed. Indication, assessment and HPI: 67-year-old female presents for EGD and colonoscopy to evaluate abdominal pain, loose stools, weight loss Family history of GI malignancy? No PHYSICAL EXAMINATION Mouth and Pharynx : Moist mucus membranes, normal dentition Cardiac: Regular rate, regular rhythm Pulmonary: Clear to auscultation bilaterally, no wheezing Neurological: Alert and oriented x3, no focal deficits noted Abdomen: Abdomen soft, non-tender REVIEW OF SYSTEMS Constitutional: Denies malaise, fevers Cardiovascular: Denies chest pain, palpitations Respiratory: Denies shortness of breath, wheezing Gastrointestinal: Per HPI Genitourinary: Denies dysuria, polyuria Musculoskeletal: Denies joint swelling, joint stiffness Neurological: Denies numbness, tingling Integumentary: Denies rashes, skin lesions Endocrine: Denies fatigue, weight loss Written informed consent obtained from the patient. Risks (including but not limited to perforation, infection, bloating, bleeding, need for emergent surgeryand loss of life), benefits and alternatives explained and questions answered. The patient verbalized understanding. Based on history patient is an appropriate candidate for the procedure. Humza Shearer MD Documented By: Humza Shearer MD 10/27/22741 Signed By: <Electronically signed by Humza Shearer MD> 10/27/22741 [facility] Work Phone: History general Narrative - Reported* Type Description Date Medical History depression Medical History psychosis Medical History anxiety Medical History chronic sleep disorder Medical History fibromyalgia Medical History hyperlipidemia Medical History esrd Medical History hypertension Surgical History cholecystectomy Surgical History Gallbladder Surgical History hysterectomy Surgical History tubal ligation Surgical History Dialysis Surgical History fistula Hospitalization History SEE ABOVE videoNEXT Other Hospital Discharge instructions Additional Instructions DISCHARGE INSTRUCTIONS FOR UPPER ENDOSCOPY WHAT TO EXPECT: - You may feel full, gassy or cramping after your procedure. In some cases, this may be from a few hours to a day. Walking may help relieve the discomfort. - Your throat may feel sore today from the scope that the doctor passed through your throat to visualize your stomach. Take a throat lozenge or suck on ice to ease the discomfort. - You may notice some streaks of blood in your sputum if the doctor has taken a biopsy. - You should begin to recover from anesthesia within 1 hour of the procedure, however may feel groggy for the next 24 hours. DO's AND DON'Ts: - Call your doctor right away if you have a hard abdomen, severe pain, vomiting or if you cough up large amounts of blood. - Call your doctor if you develop any rashes, hives or difficulty breathing. - If you take 81 mg aspirin for your heart it is safe to resume this medication. - If you take other blood thinner medications your doctor will instruct you when these can safely be resumed. - Do NOT drive for 24 hours. - Do NOT operate machinery such as power tools, lawn mowers, snow blowers, sewing machines, etc. for 24 hours. - Avoid alcoholic beverages and drugs for allergies, nerves, or sleep. - Do NOT stay alone. Do NOT leave your child unattended. - Do NOT make important personal or business decisions or sign any legal documents. - Eat solid foods and drink liquids in smaller amounts than usual until normal appetite returns. If you should experience an upset stomach, liquids high in sugar content (soda, Vincent-Aid, non-acid juices) are recommended. - Do NOT smoke. - Do take it easy today. You need not stay in bed, but avoid strenuous activities such as jogging or working out. DISCHARGE INSTRUCTIONS FOR COLONOSCOPY WHAT TO EXPECT: - You may feel full, gassy or cramping after your procedure. In some cases, this may be from a few hours to a day. Walking may help relieve the discomfort. - If you have polyp(s) removed you may note some minor bloody discharge after your first bowel movements. - You should begin to recover from anesthesia within 1 hour of the procedure, however may feel groggy for the next 24 hours. DO's AND DON'Ts: - Call your doctor right away if you have a hard abdomen, sever pain, are passing lots of bright red blood or clots. - Call your doctor if you develop any rashes, hives or difficulty breathing. - Let your doctor know if you have not had a bowel movement by 3 days after your procedure. - If you take 81 mg aspirin for your heart it is safe to resume this medication. - If you take other blood thinner medications your doctor will instruct you when these can safely be resumed. - Do NOT drive for 24 hours. - Do NOT operate machinery such as power tools, lawn mowers, snow blowers, sewing machines, etc. for 24 hours. - Avoid alcoholic beverages and drugs for allergies, nerves, or sleep. - Do NOT stay alone. Do NOT leave your child unattended. - Do NOT make important personal or business decisions or sign any legal documents. - Eat solid foods and drink liquids in smaller amounts than usual until normal appetite returns. If you should experience an upset stomach, liquids high in sugar content (soda, Vincent-Aid, non-acid juices) are recommended. - You can resume normal activities tomorrow. FOLLOW UP & RECOMMENDATIONS: - Dr. Shearer's office will arrange follow-up for you - Take your pantoprazole 40 mg every day 30 minutes before your first meal of the day - Notify the doctor if you have any problems. - Repeat colonoscopy in 10 years. - Follow up with PCP. - Office number [phone].[facility] Work Phone: Summary Purpose Family History No Family History Records Found Relationship Condition Age at Onset Recorded Date/T kwadwo daughter Crohn's disease Unknown sister Congestive heart failure Unknown Diabetes mellitus Unknown Hypertension Unknown Heart disease Unknown brother Diabetes mellitus Unknown Not Specified Diabetes mellitus Unknown father Heart disease Unknown Advance Directives No Advanced Directives Records Found Advance Directive Response Recorded Date/ Time Advance Directives No May 07 10:57am Latest Code Status on File Code Status Date Activated Date Inactivated Comments Full Code 10/20/2023 9:05 PM 10/24/2023 8:16 PM Code Status History Code Status Date Activated Date Inactivated Comments Full Code 09/04/2023 10:44 AM 09/07/2023 8:41 PM Chief Complaint and Reason for Visit Chief Complaint Nausea, Weight Loss, Diarrhea nausea, weight loss, diarrhea Chief Complaint Nausea, Weight Loss, Diarrhea nausea, weight loss, diarrhea nausea, weight loss, diarrhea Reason for Referral Specialty Diagnoses / Procedures Referred By Contac t Referred To Contact Radiology Diagnoses Chronic hepatitis C without hepatic coma (HCC) Procedures US ORGAN ELASTOGRAPHY Jet Moon MD [address] [place] [address] Referral ID Status Reason Start Date Expiration Date V isits Requested Visits Authorized [id number] Pending Review 12/28/2023 12/27/2024 1 1 Additional Source Comments INFORMATION SOURCE (unrecogn ized section and content) DATE CREATED AUTHOR 05/13/2021 [facility] DATE CREATED AUTHOR AUTHOR'S ORGANIZ ATION 11/08/2022 [facility] DATE CREATED AUTHOR AUTHOR'S ORGANIZ ATION 01/28/2024 [facility] DATE CREATED AUTHOR AUTHOR'S ORGANIZ ATION 02/03/2024 [facility] DATE CREATED AUTHOR AUTHOR'S ORGANIZ ATION 03/15/2024 [facility] DATE CREATED AUTHOR AUTHOR'S ORGANIZ ATION 03/27/2024 [facility] DATE CREATED AUTHOR AUTHOR'S ORGANIZ ATION 03/30/2024 [facility] DATE CREATED AUTHOR AUTHOR'S ORGANIZ ATION 03/31/2024 [facility] DATE CREATED AUTHOR AUTHOR'S ORGANIZ ATION 04/06/2024 [facility] [employer] Care Teams (unrecognized sec tion and content) Team Status: Inactive Member Role Status Dates Wesley Don MD Primary Care Provider Active Humza Shearer MD Attending Provider Active Team Status: Active Member Role Status Dates Wesley Don MD Primary Care Provider Active [employer] Relationship Specialty Start Date End Date Wesley Don MD PCP - General Family Medicine 02/01/17 [employer] Relationship Specialty Start Date End Date Wesley Don [address] [place] [address] PCP - General Family Medicine 08/22/18 Liz Carroll MD [address] [place] [address] Referring Nephrology 08/22/18 [employer] Relationship Specialty Start Date End Date Wesley Don [address] [place] [address] PCP - General Family Medicine 08/22/18 Liz Carroll MD [address] [place] [address] Referring Nephrology 08/22/18 [employer] Relationship Specialty Start Date End Date Wesley Don MD PCP - General Family Medicine 02/01/17 Goals (unrecognized section and content) Goals may be documented in a n alternate sectionNo Information REASON FOR VISIT (unrecogniz ed section and content) Specialty Diagnoses / Procedures Referred By Contac t Referred To Contact Radiology Diagnoses Chronic hepatitis C without hepatic coma (HCC) Procedures US ORGAN ELASTOGRAPHY Jet Moon MD [address] [facility] [address] [place] [address] Referral ID Status Reason Start Date Expiration Date V isits Requested Visits Authorized [id number] Pending Review 12/28/2023 12/27/2024 1 1 Reason Comments Referral - Kidney Txp Specialty Diagnoses / Procedures Referred By Contac t Referred To Contact Diagnoses Chronic diarrhea Chronic diarrhea [K52.9] Procedures LA COLONOSCOPY FLX DX W/COLLJ SPEC WHEN PFRMD LA COLSC FLX W/RMVL OF TUMOR POLYP LESION SNARE TQ LA COLONOSCOPY W/BIOPSY SINGLE/MULTIPLE [place] [address] [place] [address] [facility] [address] [place] [address] Referral ID Status Reason Start Date Expiration Date Visits Re quested Visits Authorized [id number] 1 1 Source Comments (unrecognize d section and content) In the event this informatio n is protected by the Federal Confidentiality of Alcohol and Drug Abuse Patient Records regulations: The Federal rules restrict any use of the information to criminally investigate or prosecute any alcohol or drug abuse patient.[facility] the event this information is protected by the Federal Confidentiality of Alcohol and Drug Abuse Patient Records regulations: The Federal rules restrict any use of the information to criminally investigate or prosecute any alcohol or drug abuse patient.[facility] the event this information is protected by the Federal Confidentiality of Alcohol and Drug Abuse Patient Records regulations: The Federal rules restrict any use of the information to criminally investigate or prosecute any alcohol or drug abuse patient.[facility] Ordered Prescriptions (unrec ognized section and content) Prescription Sig Dispensed Refills Start Date End Da te methylcellulose (CITRUCEL) oral powder Take 2 g by mouth in the morning and at bedtime Take by mouth daily. 454 g 0 03/11/2024 06/09/2024 Scheduled Active and Recently Administ ered Medications (unrecognized section and content) Medication Order 03/09/2024 03/10/2024 03/11/2024 sodium chloride flush 0.9 % injection 5-40 mL 5-40 mL, IntraVENous, EVERY 12 HOURS SCHEDULED (2 times per day), First dose on Mon03/11/24 at 2100, Until Discontinued, For Line Patency: Peripheral IV = 5 mL; Midline or Central Line = 10 mL/lumen. If following IV push medication, administer flush at same rate as the IV push. Flush volume is determined by type of infusion therapy being given. For non-viscous solutions use: Peripheral IV = 5 mL Midline or Central Line = 10 mL/lumen For viscous solutions (i.e. blood components, parenteral nutrition, contrast media, or after obtaining blood sample) use: Peripheral IV = 10 mL Midline or Central Line = 20 mL/lumen, Pre-op (day of surgery) 2100 (Due) Continuous Medication Order 03/09/2024 03/10/2024 03/11/2024 0.9 % sodium chloride infusion IntraVENous, at 100 mL/hr, CONTINUOUS, Starting on Mon03/11/24 at 1400, Pre-op (day of surgery) 1424 (New Bag - Prov ider: Carissa Branch RN)1441 (NoRateChange - Provider: KRISSY Judge CRNA)1515 (Paused - Provider: KRISSY Judge CRNA - Comment: Switch to gravity)1516 (Restarted - Provider: KRISSY Judge CRNA)1540 (Stopped - Provider: Ignacio Luz RN) PRN Medication Order 03/09/2024 03/10/2024 03/11/2024 0.9 % sodium chloride infusion IntraVENous, at 5-250 mL/hr, PRN, if patient receiving piggyback infusions and maintenance fluids are not ordered OR KVO fluids to protect IV site / prevent frequent line interruptions/ long duration, Starting on Mon03/11/24 at 1331, For piggyback infusion, administer at same rate as piggyback for a total of 25 mL. Enter 25 mL into dose field and piggyback rate into rate field of order. If piggyback is infusing at a rate less than 100 mL/hr, enter 25 mL into dose field and 100 mL/hr into rate field of order. For KVO fluids, enter rate of 20 mL/hr or less into rate field of order., Pre-op (day of surgery) lidocaine PF 1 % injection 1 mL 1 mL, IntraDERmal, ONCE PRN, 1 dose, Starting on Mon03/11/24 at 1331, Until Tu03/12/24 at 1331, IV start, Pre-op (day of surgery) sodium chloride flush 0.9 % injection 5-40 mL 5-40 mL, IntraVENous, PRN, Starting on Mon03/11/24 at 1331, Until Discontinued, Line Care, After every IV line use, For Line Patency: Peripheral IV = 5 mL; Midline or Central Line = 10 mL/lumen. If following IV push medication, administer flush at same rate as the IV push. Flush volume is determined by type of infusion therapy being given. For non-viscous solutions use: Peripheral IV = 5 mL Midline or Central Line = 10 mL/lumen For viscous solutions (i.e. blood components, parenteral nutrition, contrast media, or after obtaining blood sample) use: Peripheral IV = 10 mL Midline or Central Line = 20 mL/lumen, Pre-op (day of surgery) FOR RECORDS PERTAINING TO PATIENTS WHO ARE OR HAVE BEEN ENROLLED IN A CHEMICAL DEPENDENCY/SUBSTANCEABUSE PROGRAM, SOME INFORMATION MAY BE OMITTED. This clinical summary was aggregated from multiple sources. Caution should be exercised in using it in the provision of clinical care. This summary normalizes information from multiple sources, and as a consequence, information in this document may materially change the coding, format and clinical context of patient data. In addition, data may be omitted in some cases. CLINICAL DECISIONS SHOULD BE BASED ON THE PRIMARY CLINICAL RECORDS. [facility] [employer] [facility]. provides no warranty or guarantee of the accuracy or completeness of information in this document.
--- NOTE | 2024-04-20 15:37 | ED.GENADUL1 ---
HPI HPI - General Adult General Chief complaint: Fall Stated complaint: FALL Time Seen by Provider: 04/20/24 15:28 Source: patient and EMR Mode of arrival: ambulance Limitations: no limitations History of Present Illness HPI narrative: Patient is a 68-year-old female with a history of home peritoneal dialysis who presents to the emergency department for evaluation of right side pain after falling. She arrives in a c-collar by EMS. She states she was walking to the bathroom when she got dizzy and fell on her side. She denies head injury, loss of consciousness. She states she has been having ongoing issues with dizziness for some time, she has not told her doctor about it. She denies syncope, chest pain. She states she is minimally short of breath but this is not unusual for her. She is not anticoagulated. She reports pain in the neck, right shoulder, right thigh and tailbone. No medications given by EMS. Related Data Home Medications ?Medication ?Instructions ?Recorded ?Confirmed cephalexin 500 mg capsule mg 09/04/23 cholecalciferol (vitamin D3) 50 09/04/23 mcg (2,000 unit) capsule (Vitamin D3) docusate sodium 100 mg capsule mg PO 09/04/23 furosemide 80 mg tablet mg 09/04/23 lisinopril 20 mg tablet mg 09/04/23 metoprolol tartrate 50 mg tablet mg 09/04/23 midodrine 5 mg tablet mg 09/04/23 oxycodone-acetaminophen 5 mg-325 tab 09/04/23 mg tablet pantoprazole 40 mg tablet,delayed mg PO 09/04/23 release potassium chloride 10 mEq meq PO 09/04/23 tablet,extended release potassium chloride 20 mEq meq PO 09/04/23 tablet,extended release(part/cryst) sertraline 50 mg tablet mg 09/04/23 sevelamer carbonate 800 mg tablet mg 09/04/23 sodium bicarbonate 650 mg tablet mg 09/04/23 vitamin B complex-vitamin C-folic tab 09/04/23 acid 0.8 mg tablet (Nephro-Gregory) Previous Rx's ?Medication ?Instructions ?Recorded cephalexin 250 mg capsule 250 mg PO BID 7 days #14 caps 09/22/23 ondansetron HCl 4 mg tablet 4 mg PO Q6H PRN nausea and 09/22/23 vomiting #12 tabs promethazine 25 mg rectal 25 mg IA Q6H PRN nausea and 09/22/23 suppository vomiting #12 ea oxycodone-acetaminophen 5 mg-325 1 tab PO Q6H PRN pain 3 days #12 04/20/24 mg tablet (Percocet) tabs Allergies Allergy/AdvReac Type Severity Reaction Status Date / Time ciprofloxacin [From Cipro] Allergy Verified 04/20/24 15:35 sulfamethoxazole Allergy Verified 04/20/24 15:35 [From Bactrim] trimethoprim [From Bactrim] Allergy Verified 04/20/24 15:35 Opioid HPI Opioid Management Most Recent Opioid Data: Last ED Pain Assessment 04/20/24 17:53 Review of Systems ROS Constitutional Denies: fever or chills Ears, nose, mouth, and throat Denies: throat pain Cardiovascular Denies: chest pain Respiratory Reports: shortness of breath; Denies: cough Gastrointestinal Denies: abdominal pain, nausea or vomiting Musculoskeletal Reports: back pain, neck pain and extremity pain Integumentary/Breast Denies: rash Neurological Denies: headache Endocrine Denies: excessive urination Hematologic/Lymphatic Denies: easy bruising PFSH PFS Medical History (Updated 04/20/24 @ 18:12 by JOHN Tinoco) Metabolic syndrome ?E88.810 - Metabolic syndrome (ICD-10) Rectal bleeding ?K62.5 - Hemorrhage of anus and rectum (ICD-10) Social History Smoking status: Current every day smoker Exam Narrative Exam Narrative: Gen.: Awake, alert, in no distress Head: Normocephalic, atraumatic, No evidence of head or facial injury ENT: Moist mucous membranes, C-collar in place, posterior tenderness of the cervical spine with no obvious deformity Respiratory: No respiratory distress, lungs clear bilaterally Cardio: Regular rate and rhythm Gastrointestinal: Abdomen is soft, nondistended and nontender to palpation; Pelvis is stable and hips are nontender Extremities: Tenderness of the right proximal humerus and shoulder although the patient is noted to raise her right arm without difficulty or grimacing. No bony tenderness of the right elbow or forearm. Mild tenderness to palpation of the right thigh with no obvious deformity or swelling. No bony tenderness of the hips. No tenderness of the T-spine or L-spine with diffuse tenderness of the inferior lumbar spine and tailbone. Psych: Normal mood and affect Neuro: No focal neuro deficit Skin: Warm, dry, intact Constitutional Vital Signs, click to edit/add: Last Vital Signs Temp 98.5 F 04/20/24 15:29 Pulse 72 04/20/24 17:58 Resp 14 04/20/24 17:58 BP 106/73 04/20/24 17:58 Pulse Ox 100 04/20/24 18:08 O2 Del Method Room Air 04/20/24 15:47 Course Vital Signs Vital signs: Vital Signs Temperature 98.5 F 04/20/24 15:29 Pulse Rate 78 04/20/24 15:29 Respiratory Rate 18 04/20/24 15:29 Blood Pressure 114/73 04/20/24 15:29 Pulse Oximetry 95 04/20/24 15:29 Oxygen Delivery Method Room Air 04/20/24 15:29 Temperature 98.5 F 04/20/24 15:29 Pulse Rate 72 04/20/24 17:58 Respiratory Rate 14 04/20/24 17:58 Blood Pressure 106/73 04/20/24 17:58 Pulse Oximetry 100 04/20/24 18:08 Oxygen Delivery Method Room Air 04/20/24 15:47 Medical Decision Making MDM Narrative Medical decision making narrative: Patient sent for CTs of the head, C-spine, pelvis. C-collar was kept in place until cervical spine resulted negative. X-rays of the chest, right humerus and right femur are also unremarkable. Patient treated with fentanyl and Norflex in the ER. She is resting comfortably on reevaluation. She has an unremarkable EKG, improved labs. She was able to ambulate in the emergency department with steady gait, no dizziness or other focal medical complaints. She is discharged home to follow-up with PCP. She request pain medication at discharge. Short course of analgesics was given for home. Return to the ER if symptoms change or worsen Medical Records Medical records reviewed: Yes I reviewed the patient's medical records Lab Data Lab results reviewed: Yes I reviewed the patient's lab results Labs: Lab Results 04/20/24 Range/Units 15:56 WBC 8.8 (4.0-11.0) 10^3/uL RBC 3.16 L (4.20-5.40) 10^6/uL Hgb 10.4 L (12.0-16.0) g/dL Hct 31.3 L (36.0-48.0) % MCV 99.1 H (81.0-99.0) fL MCH 32.9 (26.7-34.0) pg MCHC 33.2 (29.9-35.2) g/dL RDW 15.1 H (11.0-15.0) % Plt Count 338 (150-450) 10^3/uL MPV 9.8 (9.5-13.5) fL Neut % (Auto) 67.1 (43.0-75.0) % Lymph % (Auto) 18.0 L (20.5-60.0) % [place] % (Auto) 8.7 (1.7-12.0) % Eos % (Auto) 5.2 (0.9-7.0) % Baso % (Auto) 0.7 (0.2-2.0) % Neut # (Auto) 5.9 (1.4-6.5) 10^3/uL Lymph # (Auto) 1.6 (1.2-3.8) 10^3/uL [place] # (Auto) 0.8 (0.3-0.8) 10^3/uL Eos # (Auto) 0.5 (0.0-0.7) 10^3/uL Baso # (Auto) 0.1 (0.0-0.1) 10^3/uL Abs Immat Gran (auto) 0.03 (0.00-0.03) 10^3/uL Imm/Tot Granulo (auto) 0.3 (0.0-0.5) % PT 10.2 (9.0-11.6) sec INR 0.96 Sodium 139 (136-145) mmol/L Potassium 3.4 L (3.5-5.1) mmol/L Chloride 98 (98-107) mmol/L Carbon Dioxide 27.9 (21.0-32.0) mmol/L Anion Gap 16.5 BUN 44.0 H (7.0-18.0) mg/dL Creatinine 13.75 H* (0.55-1.02) mg/dL Est GFR ( Amer) 3 L (>=60) Est GFR (Non-Af Amer) 3 L (>=60) BUN/Creatinine Ratio 3.2 Glucose 108 H (74-106) mg/dL Lactate 2.3 H* (0.4-2.0) mmol/L Calcium 9.5 (8.5-10.1) mg/dL Total Bilirubin 0.3 (0.2-1.0) mg/dL AST 23 (15-37) U/L ALT 27 (14-59) U/L Alkaline Phosphatase 144 H (46-116) U/L Troponin I High Sens 9.7 (4.0-51.3) pg/mL Total Protein 8.1 (6.4-8.2) g/dL Albumin 2.5 L (3.4-5.0) g/dL Globulin 5.6 g/dL Albumin/Globulin Ratio 0.4 TSH 1.315 (0.358-3.740) uIU/mL Imaging Data CT scan - head: Attestation: I have reviewed the pertinent imaging results. Radiologist's impression: ITS Impressions Cervical Spine CT 04/20/24 15:35 IMPRESSION: 1. No evidence of acute osseous abnormality of the cervical spine. 2. Moderate-severe spinal canal stenosis at C2-C5 due to a congenitally narrow spinal canal and posterior disc osteophyte complexes. Electronically authenticated by: VIVI NJ Date: 04/20/2024 17:44 Chest X-Ray 04/20/24 15:35 IMPRESSION: No acute or focal cardiopulmonary findings. Electronically authenticated by: MIESHA DOVE Date: 04/20/2024 17:[address] 04/20/24 15:35 IMPRESSION: Unremarkable unenhanced head CT. Electronically authenticated by: ALEX WILLSON Date: 04/20/2024 17:25 ECG Data Attestation: I personally reviewed and interpreted this ECG as follows: (Normal sinus rhythm at a rate of 82, no acute ST elevation or ectopy. EKG reviewed by attending physician) Discharge Plan Discharge Stand Alone Forms: Portal Instructions Chief Complaint: Fall Clinical Impression: Dizziness, Fall Patient Disposition: Home, Self-Care Time of Disposition Decision: 18:12 Condition: Good Prescriptions / Home Meds: New oxycodone-acetaminophen [Percocet] 5-325 mg tablet 1 tab PO Q6H PRN (Reason: pain) 3 Days Qty: 12 0RF Rx Instructions: DX: M25.511 No Action lisinopril 20 mg tablet midodrine 5 mg tablet potassium chloride 10 mEq tablet extended release PO oxycodone-acetaminophen 5-325 mg tablet potassium chloride 20 mEq tablet,ER particles/crystals PO furosemide 80 mg tablet sodium bicarbonate 650 mg tablet cephalexin 500 mg capsule pantoprazole 40 mg tablet,delayed release (DR/EC) PO metoprolol tartrate 50 mg tablet docusate sodium 100 mg capsule PO Nephro-Gregory 0.8 mg tablet sertraline 50 mg tablet sevelamer carbonate 800 mg tablet cholecalciferol (vitamin D3) [Vitamin D3] 50 mcg (2,000 unit) capsule cephalexin 250 mg capsule 250 mg PO BID 7 Days Qty: 14 0RF ondansetron HCl 4 mg tablet 4 mg PO Q6H PRN (Reason: nausea and vomiting) Qty: 12 0RF promethazine 25 mg suppository 25 mg IA Q6H PRN (Reason: nausea and vomiting) Qty: 12 0RF Print Language: Comoran Instructions: Fall Prevention for Older Adults (ED), Dizziness (ED) Referrals: Wesley Irizarry MD [Primary Care Provider] - 1 week
[2024-04-20 16:04] LABS: Basophils Absolute Auto 0.1 10^3/uL (0.0-0.1); Basophils Percent Auto 0.7 % (0.2-2.0); Eosinophils Absolute Auto 0.5 10^3/uL (0.0-0.7); Eosinophils Percent Auto 5.2 % (0.9-7.0); Hematocrit 31.3 % (36.0-48.0); Hemoglobin 10.4 g/dL (12.0-16.0); Immature Granulocytes Abs Auto 0.03 10^3/uL (0.00-0.03); Immature Granulocytes Pct Auto 0.3 % (0.0-0.5); Lymphocytes Absolute Auto 1.6 10^3/uL (1.2-3.8); Mean Corpuscular HGB Conc 33.2 g/dL (29.9-35.2); Mean Corpuscular Hemoglobin 32.9 pg (26.7-34.0); Mean Corpuscular Volume 99.1 fL (81.0-99.0); Mean Platelet Volume 9.8 fL (9.5-13.5); Monocytes Absolute Auto 0.8 10^3/uL (0.3-0.8); Monocytes Percent Auto 8.7 % (1.7-12.0); Neutrophils Absolute Auto 5.9 10^3/uL (1.4-6.5); Neutrophils Percent Auto 67.1 % (43.0-75.0); Platelet Count 338 10^3/uL (150-450); Red Blood Count 3.16 10^6/uL (4.20-5.40); Red Cell Distribution Width 15.1 % (11.0-15.0); White Blood Count 8.8 10^3/uL (4.0-11.0)
[2024-04-20 16:18] LABS: INR 0.96; Prothrombin Time 10.2 sec (9.0-11.6)
[2024-04-20 16:34] LABS: Alanine Aminotransferase 27 U/L (14-59); Albumin Globulin Ratio 0.4; Albumin Level 2.5 g/dL (3.4-5.0); Alkaline Phosphatase 144 U/L (46-116); Anion Gap 16.5; Aspartate Amino Transferase 23 U/L (15-37); BUN Creatinine Ratio 3.2; Bilirubin Total 0.3 mg/dL (0.2-1.0); Calcium 9.5 mg/dL (8.5-10.1); Carbon Dioxide 27.9 mmol/L (21.0-32.0); Chloride 98 mmol/L (98-107); Estimated GFR (African America 3 (>=60); Estimated GFR (Non-African Ame 3 (>=60); Globulin 5.6 g/dL; Glucose 108 mg/dL (74-106); Potassium 3.4 mmol/L (3.5-5.1); Sodium 139 mmol/L (136-145); Thyroid Stimulating Hormone 1.315 uIU/mL (0.358-3.740); Total Protein 8.1 g/dL (6.4-8.2); Troponin I High Sensitivity 9.7 pg/mL (4.0-51.3)
[2024-04-20 16:37] LABS: Lactate/Lactic Acid 2.3 mmol/L (0.4-2.0)
[2024-04-20] MEDS: ORPHENADRINE 60 MG/ 2 ML VIAL IV (17:05)
[2024-04-20] MEDS: 0.9 % SODIUM CHLORIDE 1,000 ML 250 ML IV (17:05)
[2024-04-20] MEDS: ONDANSETRON PF 4 MG/2 ML VIAL IV (17:05)
[2024-04-20] MEDS: FENTANYL CITRATE/PF 100 MCG/2 ML VIAL 50 MCG IV (17:06)
== END 2024-04-20 18:42 | disposition home or self-care (01) ==
PROVIDERS: Physician Assistant; Emergency Provider Emergency Medicine; PCP Family Medicine
DX: Z04.3 Encounter for examination and observation following other accident (principal); R42 Dizziness and giddiness; F17.200 Nicotine dependence, unspecified, uncomplicated; R06.02 Shortness of breath; Z99.2 Dependence on renal dialysis
CPT/HCPCS: 36415; 70450; 71045; 72125; 72192; 73060; 73552; 80053; 83605; 84443; 84484; 85025; 85610; 93005; 96361; 96374; 96375; 99285